=== PATIENT | male | born 1945 | race Caucasian/White ===

== ENCOUNTER → 2016-12-13 | Outpatient (CLI) | payer BC, OTHER ==
[~2016-12-13] MED LIST: AMLO10TA82 PO; ASP325T PO; ATOR80TA PO; CATHETER FLUSH 10 ML SYR IV PRN; ENAL10TA PO; FOLI1TAB24 PO; METO-272 PO; MULT-974 PO; NTR.4SL SL; OMG1KC PO; REGADENOSON 0.4 MG/5 ML SYR (LEXISCAN) IV ONE
[2016-12-13 12:57] VITALS: BP 150/70
--- NOTE | 2016-12-13 17:12 | STRESS TEST ---
PROCEDURE PHYSICIAN: NESTOR NEFF DATE OF PROCEDURE: 12/13/2016 LEXISCAN MYOVIEW STRESS TEST REPORT: BASELINE HEART RATE: 49 BASELINE BLOOD PRESSURE: 150/70 BASELINE EKG: Sinus rhythm with no ischemic changes. IN SUMMARY: The patient received 10.93 mCi of technetium 99 Myoview and the resting images were obtained. Then the patient received 0.4 mg of Lexiscan followed by 30.5 mCi of technetium 99 Myoview. Throughout the test, there were no EKG changes. The resting and stress images were reviewed and compared in the short axis, horizontal long axis, and vertical long axis views. Review of the images showed diaphragmatic attenuation with typical male pattern. Mild decreased uptake at the inferoapical segment, with subtle reversibility. SSS is 4, SDS 4, TID value 1.02. On the gated images, the left ventricle appeared to be normal size with normal contractility. Calculated ejection fraction 59%. IN CONCLUSION: 1. .The patient tolerated Lexiscan well. 2. Diaphragmatic attenuation with typical male pattern. Mild decreased uptake at the inferoapical segment, with subtle reversibility. 3. Normal left ventricular size with normal contractility. Calculated ejection fraction 59%. Job ID: [id number] Dictated Date: 12/13/2016 16:51:18 Client Services Specialist Date: 12/13/2016 17:08:18 / roberto
== END ==
LOC: CARD 08:34
PROVIDERS: ATTEND Internal Medicine Cardiovascular Disease
DX: I25.10 Atherosclerotic heart disease of native coronary artery without angina pectoris (principal); I11.0 Hypertensive heart disease with heart failure; I50.9 Heart failure, unspecified; I65.23 Occlusion and stenosis of bilateral carotid arteries; R07.89 Other chest pain; E78.2 Mixed hyperlipidemia
CPT/HCPCS: 78452; 93017

== ENCOUNTER 2019-02-19 07:24 | Day surgery (SDC) | payer BC, MEDICARE ==
[~2019-02-19] VITALS: Ht 165.1 cm; Wt 81.6 kg
[2019-02-19] VITALS (10 sets, daily range): BP systolic 110–135; BP diastolic 58–71
[~2019-02-19 07:24] MED LIST changes: -CATHETER FLUSH 10 ML SYR IV PRN; -REGADENOSON 0.4 MG/5 ML SYR (LEXISCAN) IV ONE
[2019-02-19] MEDS ORDERED: LIDOCAINE 1% INJ 20 ML 20 ML VIAL ONE (07:29)
[2019-02-19] MEDS ORDERED: NS IV 1000 ML 1,000 ML ONE (07:29)
[2019-02-19] MEDS ORDERED: HEParin (CATH LAB) 2,000 ML IV ONE (07:29)
[2019-02-19] MEDS ORDERED: NS IV 1000 ML 1,000 ML IV SCH ×2 (07:33→10:12)
[2019-02-19] MEDS ORDERED: OMEG10005 PO (08:04)
[2019-02-19] MEDS ORDERED: MULT-1065 PO (08:04)
[2019-02-19] MEDS ORDERED: ASPI325T32 PO (08:04)
[2019-02-19] MEDS ORDERED: METO-370 PO (08:04)
[2019-02-19] MEDS ORDERED: FOLI1TAB24 PO (08:04)
[2019-02-19] MEDS ORDERED: ATOR80TA76 PO (08:04)
[2019-02-19] MEDS ORDERED: AMLO10TA7 PO (08:04)
[2019-02-19 08:06] LABS: HEMOGLOBIN 14.3 G/DL (13.3-17.7); RED CELL DISTRIBUTION WIDTH 13.2 % (10.0-14.5); WHITE BLOOD COUNT 8.3 10^3/uL (4.3-11.0)
[2019-02-19] MEDS ORDERED: NITR0.4T39 SL (08:07)
--- NOTE | 2019-02-19 08:08 | Diagnostic Imaging Report ---
INDICATION: Cough COMPARISON: 10/10/2011 FINDINGS: There is air trapping and COPD chronic. The lungs show no focal consolidation. The heart and vascularity are normal. There is no failure, effusion or pneumothorax. IMPRESSION: Clear hyperexpanded lungs, otherwise negative. Dictated by: Dictated on workstation # [id number]
[2019-02-19] MEDS ORDERED: NAPR220C11 PO (08:10)
--- NOTE | 2019-02-19 08:12 | NUR ---
SPOKE WITH PT (HE HAD HIS BOTTLES WITH HIM) TO COMPLETE THE MED REC. HE WAS ABLE TO TELL ME HOW HE TAKES ALL HIS MEDICATIONS AND IT WAS THE SAME THE DIRECTIONS ON THE BOTTLE. OTC MEDS: NAPROXEN 220M TABS 1 8 H PRN OMEGA3 1,000M DAILY MULTIVITAMIN : 1 DAILY FOLIC ACID: 1 BID ASPIRIN 325M DAILY
[2019-02-19 08:19] LABS: INR 0.9 (0.8-1.4); PROTHROMBIN TIME PATIENT 12.4 SEC (12.2-14.7)
[2019-02-19 08:26] LABS: ALANINE AMINOTRANSFERASE 19 U/L (0-55); ALBUMIN 4.4 GM/DL (3.2-4.5); ALKALINE PHOSPHATASE 67 U/L (40-136); BILIRUBIN,TOTAL 0.6 MG/DL (0.1-1.0); BUN/CREATININE RATIO 12; CALCIUM 9.5 MG/DL (8.5-10.1); CARBON DIOXIDE 24 MMOL/L (21-32); CHLORIDE 96 MMOL/L (98-107); CHOLESTEROL 132 MG/DL (< 200); CREATININE SERUM 0.81 MG/DL (0.60-1.30); GFR ESTIMATED > 60; GLUCOSE 91 MG/DL (70-105); HDL CHOLESTEROL 56 MG/DL (40-60); POTASSIUM 4.5 MMOL/L (3.6-5.0); SODIUM 130 MMOL/L (135-145); TOTAL PROTEIN 7.3 GM/DL (6.4-8.2); TRIGLYCERIDES 55 MG/DL (<150); VLDL CHOLESTEROL 11 MG/DL (5-40)
[2019-02-19] MEDS ORDERED: MIDAZOLAM 5 MG/5 ML (VERSED) VIAL ONE (08:58)
[2019-02-19] MEDS ORDERED: fentaNYL INJECTION 100 MCG/2 ML AMP ONE (08:58)
--- NOTE | 2019-02-19 09:18 | Cardiac Procedure Note-CS/ASA ---
Pre-Procedure Note Pre-Op Procedure Note H&P Reviewed The H&P was reviewed, patient examined and no changes noted. Date H&P Reviewed: Feb 19, 2019 Time H&P Reviewed: 09:18 Conscious Sedation Pre-Proced Time 09:18 ASA Score 3 For ASA 3 and 4: Consider anesthesia and medical clearance. Also, for patients with a history of failed moderate sedation consider anesthesia. Airway Lungs Heart ASA score ASA 1: a normal healthy patient ASA 2: a patient with a mild systemic disease (mid diabetes, controlled hypertension, obesity x ASA 3: a patient with a severe systemic disease that limits activity (angina, COPD, prior Myocardial infarction) ASA 4: a patient with an incapacitating disease that is a constant threat to life (CHF, renal failure) ASA 5: a moribund patient not expected to survive 24 hrs. (ruptured aneurysm) ASA 6: a declared brain- patient whose organs are being harvested. For emergent operations, add the letter E after the classification Mallampati Classification Grade 3 Sedation Plan Analgesia, Amnesia, Plan communicated to team members, Discussed options with patient/fam, Discussed risks with patient/fam The patient is an appropriate candidate to undergo the planned procedure, sedation, and anesthesia. The patient immediately re-assessed prior to indication. NESTOR NEFF MD Feb 19, 2019 09:18
--- NOTE | 2019-02-19 10:14 | Discharge Inst-Post CATH ---
Discharge Inst-CATH/EP Problems Reviewed?: Yes Post Cardiac Cath/EP D/C Inst Follow Up/Plan Appointment with Dr. NEFF's office in 2-4 weeks <b>CARDIAC CATH/EP PROCEDURE DISCHARGE INSTRUCTIONS</b> ACTIVITY * Go Home directly and rest. * Limit activity of the leg (or wrist if it was used) for 7 days including aerob ics, swimming, jogging, bicycling, etc. * Restrict stair-climbing for 7 days if possible, if not, climb up with your non-cath leg, then bring together on the same step. * Avoid lifting, pushing, pulling or excessive movement of the affected extremity for 7 days. * Customary sexual activity may be resumed after 2 days-use caution not to use a position that strains or causes pain to the affected extremity. * No driving for 24 hours. * NO SMOKING. * Avoid straining for bowel movements for 7 days. * Gentle walking on level ground is allowed. * Returning to work will depend on the type of procedure and the results. Your doctor will discuss this with you. CALL YOUR DOCTOR FOR ANY OF THE FOLLOWING: *If bleeding from the puncture site occurs- Apply gentle pressure to site with clean cloth and call your doctor or EMS. * If a knot or lump forms under the skin, increases in size, or causes pain. * If bruising appears to be worsening or moving further down your leg instead of disappearing. * Temperature above 101 F. CARE OF YOUR GROIN INCISION; * Bruising or purple discoloration of the skin near the puncture site is common. * You may shower only, no bathtub bathing for 5 days. Be careful to avoid slipping as your leg may feel stiff. * If a closure device was used on your femoral artery, please see the attached guide regarding care of the device and your leg. * Leave dressing on FOR 24 hours. CARE OF YOUR WRIST INCISION; * Bruising or purple discoloration of the skin near the puncture site is common. * You may shower. * DO NOT submerge wrist. * Leave dressing on FOR 24 hours. NESTOR NEFF MD Feb 19, 2019 10:14
[2019-02-19] MEDS ORDERED: PATIENT MAY USE OWN MEDS, ALL PO SCH (10:15)
--- NOTE | 2019-02-19 10:22 | Peripheral Report ---
Peripheral Report Physician (s)/[employer]isher (s) Physician NESTOR NEFF MD Pre-Procedure Diagnosis Pre-Procedure Diagnosis: peripheral arterial disease Post-Procedure Note Procedure Start Date: Feb 19, 2019 Name of Procedure: abdominal aortogram with bilateral runoff Additional imaging Second order Findings/Procedure Note PROCEDURE NOTE: 73 years old gentleman with history of coronary artery disease, extensive peripheral arterial disease, kissing iliac stents. Has been having left leg pain, had abnormal ROSALIND bilaterally. Scheduled for peripheral angiogram After explaining the procedure to the patient, all pros and cons were explained, all questions were answered. The patient signed the consent and then he was placed on the cardiac catheterization laboratory. The patient was placed on the cardiac catheterization laboratory. Groin was prepped SL fashion local anesthesia was used. Sheath placed in the right femoral artery, pigtail catheter advanced to the abdominal aorta and angiogram to evaluate the bifurcation was done in 2 stages then I tried to cross over with the pigtail without success I exchanged it to 5 [place] UF catheter, advanced along stork wire to the left SFA then exchanged to catheter him to straight catheter that was placed at the common femoral artery and did runoff to the left leg then pressure was measured and I pulled back to the common iliac artery and there was slight step up in the pressure performed angiogram then again pulled back to the closest point to the bifurcation and performed angiogram again then exchanged the straight catheter into a pigtail catheter placed in the abdominal aorta and abdominal aortogram with bilateral runoff was done then I did runoff to the right leg using the pigtail then the sheath. At the end of the procedure sheath was removed mixed the plate FINDINGS: Abdominal aorta evaluation showed atherosclerotic disease in the abdominal aorta infrarenally, both renal arteries are normal, SMA and PANCHO are normal. The bifurcation is normal. Right lower extremity, patient has kissing iliac stent that were patent with mild to moderate disease within the stent, moderate stenosis in the mid and distal SFA, beyond the trifurcation arteries were small with good flow Left lower extremity, the iliac stents are patent with mild irregularity, nonobstructive disease, heavily calcified SFA with [id number]-[id number] disease nonobstructive disease down to the trifurcation below the trifurcation there is small artery disease. CONCLUSIONS: 1. Kissing iliac stents are patent with ziri-qq-lttaebta disease slightly more pronounced on the right side, nonobstructive disease with a pressure gradient of around 20 mmHg 2. Heavily calcified left SFA with moderate disease nonobstructive disease down to the trifurcation 3. Heavily calcified right SFA with moderate disease at the midportion, good flow down to the trifurcation 4. Diffuse atherosclerotic plaques in the abdominal aorta, no dissection was noted, no aneurysm DISCUSSION AND RECOMMENDATIONS: Continue to maximize medical therapy. No intervention is warranted at this time, close monitoring is recommended Anesthesia Type: Conscious Sedation Estimated blood loss (mL): 25 ml Contrast Amount: 75 ml Total Radiation Dose: 423 mGy Post-Procedure Diagnosis Post-operative diagnosis: Claudication Peripheral arterial disease Coronary artery disease Hypertension Hyperlipidemia NESTOR NEFF MD Feb 19, 2019 10:22
== END 2019-02-19 14:40 | disposition home or self-care (01) ==
LOC: CATH 07:24 → SDC 10:37 → CATH 14:40
PROVIDERS: ATTEND Internal Medicine Cardiovascular Disease
DX: I73.9 Peripheral vascular disease, unspecified (principal); I25.10 Atherosclerotic heart disease of native coronary artery without angina pectoris; I11.0 Hypertensive heart disease with heart failure; I50.9 Heart failure, unspecified; I65.29 Occlusion and stenosis of unspecified carotid artery; E78.2 Mixed hyperlipidemia; Z88.8 Allergy status to other drugs, medicaments and biological substances; Z79.82 Long term (current) use of aspirin; Z87.891 Personal history of nicotine dependence; Z82.49 Family history of ischemic heart disease and other diseases of the circulatory system; Z82.3 Family history of stroke; Z80.9 Family history of malignant neoplasm, unspecified
CPT/HCPCS: 36246; 36248; 36415; 71045; 75630; 80053; 80061; 85027; 85610; 85730; 87081

== ENCOUNTER 2019-07-11 08:12 | Emergency (ER) | payer BC ==
[~2019-07-11] VITALS: Ht 165 cm; Wt 80.6 kg
[~2019-07-11 08:12] MED LIST changes: +AMLO10TA7 PO; +ASPI325T32 PO; +ATOR80TA76 PO; +METO50TA7 PO; +MULT-1065 PO; +NAPR220C11 PO; +NITR0.4T39 SL; +OMEG10005 PO
[2019-07-11 09:57] LABS: BASOPHILS % (AUTO) 0 % (0-10); EOSINOPHILS % (AUTO) 0 % (0-10); HEMATOCRIT 37 % (40-54); HEMOGLOBIN 13.3 G/DL (13.3-17.7); LYMPHOCYTES # (AUTO) 1.7 X 10^3 (1.0-4.0); LYMPHOCYTES % (AUTO) 16 % (12-44); MEAN CORPUSCULAR HEMOGLOBIN 32 PG (25-34); MEAN CORPUSCULAR HGB CONC 36 G/DL (32-36); MEAN CORPUSCULAR VOLUME 91 FL (80-99); MONOCYTES # (AUTO) 1.7 X 10^3 (0.0-1.0); MONOCYTES % (AUTO) 15 % (0-12); NEUTROPHILS # (AUTO) 7.7 X 10^3 (1.8-7.8); NEUTROPHILS % (AUTO) 69 % (42-75); PLATELET COUNT 201 10^3/uL (130-400); WHITE BLOOD COUNT 11.2 10^3/uL (4.3-11.0)
[2019-07-11] MEDS ORDERED: LACTATED RINGERS 1,000 ML IV STA (10:00)
[2019-07-11 10:09] LABS: ALANINE AMINOTRANSFERASE 22 U/L (0-55); ALBUMIN 3.9 GM/DL (3.2-4.5); ALKALINE PHOSPHATASE 62 U/L (40-136); BILIRUBIN,TOTAL 0.9 MG/DL (0.1-1.0); BUN/CREATININE RATIO 12; CALCIUM 9.1 MG/DL (8.5-10.1); CARBON DIOXIDE 25 MMOL/L (21-32); CHLORIDE 91 MMOL/L (98-107); CREATININE SERUM 0.78 MG/DL (0.60-1.30); GFR ESTIMATED > 60; GLUCOSE 90 MG/DL (70-105); LIPASE 25 U/L (8-78); POTASSIUM 4.1 MMOL/L (3.6-5.0); SODIUM 126 MMOL/L (135-145); TOTAL PROTEIN 6.5 GM/DL (6.4-8.2)
[2019-07-11 10:16] LABS: INR 1.1 (0.8-1.4); PROTHROMBIN TIME PATIENT 14.9 SEC (12.2-14.7)
--- NOTE | 2019-07-11 10:18 | ED Abdominal Pain ---
General Chief Complaint: Abdominal/GI Problems Stated Complaint: L SIDE PAIN Nursing Triage Note: COMPLAINS OF LEFT ABD PAIN STARTING YESTERDAY THAT COMES AND GOES. PT STATES HE FELL ON SUN BUT DOES NOT KNOW WHAT SIDE HE HIT. Sepsis Screen: No Definite Risk Source of Information: Patient Exam Limitations: No Limitations History of Present Illness Date Seen by Provider: Jul 11, 2019 Time Seen by Provider: 09:51 Initial Comments Here with complaint of left lower quadrant abdominal pain that started yesterday and got quite significant last night. Stephens better when he laid down and was doing okay until this morning when it started to get a little bit worse. He is doing a little better now. Denies problems with bowel movements or urination. Denies blood in his urine or stool. He has not eaten today but did have a few sips of diet Mountain Dew. He has not taken anything for the pain. He did fall a few days ago but states he did not hit that side at all. Denies any injuries from the fall otherwise. Does state it hurts when he moves or walks on the left side of the abdomen. Timing/Duration: 12-24 Hours, Changing Over Time Severity/Quality: Moderate, Aching Location: LLQ Radiation: No Radiation Activities at Onset: None Modifying Factors: Improves With Lying down; Worsens With Movement; Improves Wi th Resting Associated Symptoms: No Back Pain, No Chest Pain, No Fever/Chills, No Nausea/Vomiting, No Shortness of Air, No Swelling/Mass in Abdomen, No Weakness Allergies and Home Medications Allergies Coded Allergies: Clopidogrel (Verified Allergy, Unknown, 01/02/07) Home Medications Amlodipine Besylate 10 Mg Tablet, 10 MG PO HS, (Reported) Aspirin 325 Mg Tablet.dr, 325 MG PO DAILY, (Reported) Atorvastatin Calcium 80 Mg Tablet, 80 MG PO DAILY, (Reported) Folic Acid 1 Mg Tablet, 1 MG PO BID, (Reported) Metoprolol Succinate 50 Mg Tab.er.24h, 50 MG PO DAILY, (Reported) Multivit-Min/FA/Lycopen/Lutein 1 Each Tablet, 1 EACH PO DAILY, (Reported) Naproxen Sodium 220 Mg Capsule, 440 MG PO Q8H PRN for PAIN-MILD, (Reported) Nitroglycerin 0.4 Mg Tab.subl, 0.4 MG SL UD PRN for CHEST PAIN, (Reported) [place]-3 Fatty Acids 1,000 Mg Capsule, 1,000 MG PO HS, (Reported) Patient Home Medication List Home Medication List Reviewed: Yes Review of Systems Review of Systems Constitutional: see HPI; No chills, No fever EENTM: No Symptoms Reported Respiratory: Denies Cough, Denies Shortness of Air Cardiovascular: No Symptoms Reported Gastrointestinal: Abdominal Pain; Denies Constipated, Denies Diarrhea, Denies Nausea, Denies Rectal Bleeding, Denies Vomiting Genitourinary: Denies Burning, Denies Discharge, Denies Hematuria Musculoskeletal: no symptoms reported Skin: no symptoms reported; No change in color, No lesions Psychiatric/Neurological: No Symptoms Reported All Other Systems Reviewed Negative Unless Noted: Yes Past Ufnkuty-Yrjoky-Coqcje Hx Past Med/Social Hx: Reviewed Nursing Past Med/Soc Hx Patient Social History Alcohol Use: Occasionally Uses Alcohol Beverage of Choice: Beer Recreational Drug Use: No Smoking Status: Current Everyday Smoker Type Used: Cigarettes Recent Foreign Travel: No Contact w/Someone Who Travel: No Recent Infectious Disease Expo: No Recent Hopitalizations: No Past Medical History Surgeries: Yes Coronary Stent Respiratory: No Currently Using CPAP: No Cardiac: Yes Coronary Artery Disease, Heart Attack, Hypertension Neurological: No Reproductive Disorders: No Genitourinary: No Gastrointestinal: No Musculoskeletal: Yes Endocrine: No HEENT: No Cancer: No Psychosocial: No Blood Disorders: No Adverse Reaction/Blood Tranf: No Family Medical History Reviewed Nursing Family Hx No Pertinent Family Hx Physical Exam Vital Signs Vital Signs - First Documented 07/11/19 09:00 Temp 35.4 Pulse 60 Resp 16 B/P (MAP) 133/104 (114) Pulse Ox 98 O2 Delivery Room Air Capillary Refill : Less Than 3 Seconds Height/Weight/BMI Height: 5'5.00" Weight: 180lbs. 0.0oz. 81.588822py; 29.00 BMI Method: General Appearance: WD/WN, no apparent distress HEENT: PERRL/EOMI, pharynx normal Neck: full range of motion, supple Respiratory: lungs clear, normal breath sounds Cardiovascular: regular rate, rhythm, no murmur Peripheral Pulses: 2+ Dorsalis Pedis (R), 2+ Left Dors-Pedis (L), 2+ Radial Pulses (R), 2+ Radial Pulses (L) Gastrointestinal: normal bowel sounds, soft, no organomegaly, no pulsatile mass; No distended; guarding; No rebound; tenderness (left lower quadrant) Extremities: non-tender, normal inspection, no pedal edema, no calf tenderness Back: normal inspection, no CVA tenderness, no vertebral tenderness Neurologic/Psychiatric: alert, oriented x 3 Skin: normal color, warm/dry Progress/Results/Core Measures Results/Orders Lab Results Laboratory Tests Test 07/11/19 09:26 07/11/19 11:27 Range/Units White Blood Count 11.2 H 4.3-11.0 10^3/uL Red Blood Count 4.10 L 4.35-5.85 10^6/uL Hemoglobin 13.3 13.3-17.7 G/DL Hematocrit 37 L 40-54 % Mean Corpuscular Volume 91 80-99 FL Mean Corpuscular Hemoglobin 32 25-34 PG Mean Corpuscular Hemoglobin Concent 36 32-36 G/DL Red Cell Distribution Width 14.0 10.0-14.5 % Platelet Count 201 130-400 10^3/uL Mean Platelet Volume 9.0 7.4-10.4 FL Neutrophils (%) (Auto) 69 42-75 % Lymphocytes (%) (Auto) 16 12-44 % Monocytes (%) (Auto) 15 H 0-12 % Eosinophils (%) (Auto) 0 0-10 % Basophils (%) (Auto) 0 0-10 % Neutrophils # (Auto) 7.7 1.8-7.8 X 10^3 Lymphocytes # (Auto) 1.7 1.0-4.0 X 10^3 Monocytes # (Auto) 1.7 H 0.0-1.0 X 10^3 Eosinophils # (Auto) 0.0 0.0-0.3 10^3/uL Basophils # (Auto) 0.0 0.0-0.1 10^3/uL Prothrombin Time 14.9 H 12.2-14.7 SEC INR Comment 1.1 0.8-1.4 Activated Partial Thromboplast Time 33 24-35 SEC Sodium Level 126 L 135-145 MMOL/L Potassium Level 4.1 3.6-5.0 MMOL/L Chloride Level 91 L 98-107 MMOL/L Carbon Dioxide Level 25 21-32 MMOL/L Anion Gap 10 5-14 MMOL/L Blood Urea Nitrogen 9 7-18 MG/DL Creatinine 0.78 0.60-1.30 MG/DL Estimat Glomerular Filtration Rate > 60 BUN/Creatinine Ratio 12 Glucose Level 90 70-105 MG/DL Calcium Level 9.1 8.5-10.1 MG/DL Corrected Calcium 9.2 8.5-10.1 MG/DL Total Bilirubin 0.9 0.1-1.0 MG/DL Aspartate Amino Transf (AST/SGOT) 29 5-34 U/L Alanine Aminotransferase (ALT/SGPT) 22 0-55 U/L Alkaline Phosphatase 62 40-136 U/L Total Protein 6.5 6.4-8.2 GM/DL Albumin 3.9 3.2-4.5 GM/DL Lipase 25 8-78 U/L Urine Color YELLOW Urine Clarity CLEAR Urine pH 7.5 5-9 Urine Specific [place] 1.015 L 1.016-1.022 Urine Protein NEGATIVE NEGATIVE Urine Glucose (UA) NEGATIVE NEGATIVE Urine Ketones NEGATIVE NEGATIVE Urine Nitrite NEGATIVE NEGATIVE Urine Bilirubin NEGATIVE NEGATIVE Urine Urobilinogen 0.2 < = 1.0 MG/DL Urine Leukocyte Esterase NEGATIVE NEGATIVE Urine RBC (Auto) NEGATIVE NEGATIVE Urine RBC NONE /HPF Urine WBC NONE /HPF Urine Crystals NONE /LPF Urine Bacteria NEGATIVE /HPF Urine Casts NONE /LPF Urine Mucus NEGATIVE /LPF Urine Culture Indicated NO My Orders Orders - BRADEN GEORGES MD Ed Iv/Invasive Line Start (07/11/19 09:50) Cbc With Automated Diff (07/11/19 09:50) Comprehensive Metabolic Panel (07/11/19 09:50) Lipase (07/11/19 09:50) Protime With Inr (07/11/19 09:50) Partial Thromboplastin Time (07/11/19 09:50) Ua Culture If Indicated (07/11/19 09:50) Lactated Ringers (Lr 1000 Ml Iv Solution (07/11/19 10:00) Ct Abdomen/Pelvis W (07/11/19 11:56) Iohexol Injection (Omnipaque 350 Mg/Ml 1 (07/11/19 12:00) Received Contrast (Hold Metformin- Contr (07/11/19 12:00) Sodium Chloride Flush (Catheter Flush Sy (07/11/19 12:00) Ns (Ivpb) (Sodium Chloride 0.9% Ivpb Bag (07/11/19 12:00) Medications Given in ED Current Medications Medications Dose Ordered Sig/Zeenat Route Start Time Stop Time Status Last Admin Dose Admin Iohexol 100 ml ONCE ONCE IV 07/11/19 12:00 07/11/19 12:01 DC 07/11/19 12:18 100 ML Sodium Chloride 10 ml NEEDED PRN IV 07/11/19 12:00 07/11/19 12:18 10 ML Sodium Chloride 100 ml ONCE ONCE IV 07/11/19 12:00 07/11/19 12:01 DC 07/11/19 12:18 80 ML Vital Signs/I&O 07/11/19 09:00 Temp 35.4 Pulse 60 Resp 16 B/P (MAP) 133/104 (114) Pulse Ox 98 O2 Delivery Room Air Blood Pressure Mean: 114 Progress Progress Note : Progress Note Seen and evaluated. IV, labs and UA ordered. LR 1 L bolus. Declines pain or nausea medicine at this point. Anticipate CT abdomen and pelvis. Pending labs and UA to determine contrast needs. 1320: CT complete. I did discuss with him the need for upper and lower endoscopy especially given findings of the stomach. He is having no pains in the epigastric region. No intra-abdominal findings related to the left lower quadrant this may be musculoskeletal after the fall. Pain is much better now without having to give any pain medicine and only therapy was rest. 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 I have asked him to rest for a few days to see if that helps. Also given information on local surgeons for upper and lower endoscopy as well as local medical physicians. Discharged home with return precautions. Patient and family verbalize understanding instructions and agreement with plan. Diagnostic Imaging Diagonstic Imaging: CT Plain Films/CT/US/NM/MRI: abdomen, pelvis Comments [facility] [place], [place] NAME: ANMOL HAYNES [facility] REC#: [id number] PT STATUS: REG ER : 1945 PHYSICIAN: BRADEN GEORGES MD ADMIT DATE: 07/11/19/ER Draft Date of Exam:07/11/19 CT ABDOMEN/PELVIS W PROCEDURE: CT abdomen and pelvis with contrast. TECHNIQUE: Multiple contiguous axial images were obtained through the abdomen and pelvis after administration of intravenous contrast. Auto Exposure Controls were utilized during the CT exam to meet ALARA standards for radiation dose reduction. DATE: July 11, 2019. COMPARISON: None. INDICATION: 74-year-old male, left lower quadrant abdominal pain. FINDINGS: The visualized portions of the lung bases are clear. The heart is not enlarged. There is no pericardial effusion. The liver is normal in size and contour. There is no identified liver lesion. The main, right, and left portal veins are patent. The gallbladder is unremarkable. There is no intrahepatic or extrahepatic bile duct dilation. The main pancreatic duct is not abnormally dilated. The pancreatic parenchyma is unremarkable in appearance. The spleen is not enlarged. The adrenal glands are unremarkable. Unremarkable appearance of the renal parenchyma. The urinary collecting systems are not distended. There is no identified renal or ureteral stone. 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 There appears to be a single right ureteral insertion. There is also a duplicated left urinary collecting system with single ureteral insertion. The urinary bladder is unremarkable in appearance. The intestinal tract is not distended. The appendix is normal. There appears to be fairly diffuse wall thickening of the stomach. There is no free intraperitoneal air. There is no drainable fluid collection. There is no free pelvic fluid. There are atherosclerotic calcifications. There are biiliac stent grafts. There is high-grade stenosis and potential occlusion of the proximal segments of the right and left internal iliac arteries. There is some reconstitution of flow distally. There is no identified abnormally enlarged lymph node in the abdomen or pelvis which meets CT size criteria for adenopathy. There are multilevel degenerative changes of the spine. There is grade 1 anterolisthesis of L4 and L5 relating to facet degenerative changes. There is no identified acute bony abnormality. IMPRESSION: CT ABDOMEN AND PELVIS. 1. Fairly diffuse wall thickening of the stomach which potentially could relate to gastritis. Malignancy cannot be excluded. Recommend correlation. Upper endoscopy could be considered for further assessment as needed. 2. 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 3. Atherosclerotic disease with high-grade stenosis and/or occlusion of the proximal segments of the right and left internal iliac arteries with reconstitution of flow distally. 4. No identified other potential acute abnormality in the abdomen or pelvis. Dictated on workstation # [id number] Dict: 07/11/19 1227 Trans: 07/11/19 1242 [facility] [id number] Interpreted by: ILIANA PRESTON MD Electronically signed by: Departure Impression Primary Impression: Left lower quadrant abdominal pain Disposition: 01 HOME, SELF-CARE Condition: Stable Departure-Patient Inst. Referrals: NO,LOCAL PHYSICIAN (PCP) Primary Care Physician TRINA RUIZ (Family) Primary Care Physician LEO VELÁZQUEZ BRETT D DO Patient Instructions: Acute Abdomen (Belly Pain), Adult (DC) Add. Discharge Instructions: All discharge instructions reviewed with patient and/or family. Voiced understanding. You need to rest for the next few days. You may take Tylenol/acetaminophen 1000 mg every 6-8 hours as needed for pain. You may take ibuprofen 400 mg every 6-8 hours as needed for pain. It is very important that you follow-up with a surgeon, those listed or of your choosing, for further evaluation including upper endoscopy (upper scope) and colonoscopy (Lower scope). You did have thickening of your stomach and that needs to be further evaluated. Return for worse pain, fever, vomiting, weakness, breathing problems or other concerns as needed. Drink plenty of fluids and eat a light diet. Work/School Note: Local Medical Staff Listing BRADEN GEORGES MD Jul 11, 2019 10:18
[2019-07-11 11:32] LABS: BILIRUBIN,URINE NEGATIVE (NEGATIVE); CLARITY,URINE CLEAR; COLOR,URINE YELLOW; GLUCOSE, URINE (UA) NEGATIVE (NEGATIVE); KETONES,URINE NEGATIVE (NEGATIVE); LEUKOCYTE ESTERASE ,URINE NEGATIVE (NEGATIVE); NITRITE,URINE NEGATIVE (NEGATIVE); PH,URINE 7.5 (5-9); PROTEIN,URINE NEGATIVE (NEGATIVE)
[2019-07-11 11:39] LABS: BACTERIA,URINE NEGATIVE /HPF
[2019-07-11] MEDS ORDERED: NS 100 ML (IVPB) BAG IV ONE (12:00)
[2019-07-11] MEDS ORDERED: HOLD METFORMIN - RECEIVED CONTRAST 20 ML VIAL IV SCH (12:00)
[2019-07-11] MEDS ORDERED: CATHETER FLUSH 10 ML SYR IV PRN (12:00)
[2019-07-11] MEDS ORDERED: IOHEXOL 350 MG/ML 100 ML (OMNIPAQUE 350) VIAL IV ONE (12:00)
--- NOTE | 2019-07-11 12:42 | Diagnostic Imaging Report ---
PROCEDURE: CT abdomen and pelvis with contrast. TECHNIQUE: Multiple contiguous axial images were obtained through the abdomen and pelvis after administration of intravenous contrast. Auto Exposure Controls were utilized during the CT exam to meet ALARA standards for radiation dose reduction. DATE: July 11, 2019. COMPARISON: None. INDICATION: 74-year-old male, left lower quadrant abdominal pain. FINDINGS: The visualized portions of the lung bases are clear. The heart is not enlarged. There is no pericardial effusion. The liver is normal in size and contour. There is no identified liver lesion. The main, right, and left portal veins are patent. The gallbladder is unremarkable. There is no intrahepatic or extrahepatic bile duct dilation. The main pancreatic duct is not abnormally dilated. The pancreatic parenchyma is unremarkable in appearance. The spleen is not enlarged. The adrenal glands are unremarkable. Unremarkable appearance of the renal parenchyma. The urinary collecting systems are not distended. There is no identified renal or ureteral stone. 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 There appears to be a single right ureteral insertion. There is also a duplicated left urinary collecting system with single ureteral insertion. The urinary bladder is unremarkable in appearance. The intestinal tract is not distended. The appendix is normal. There appears to be fairly diffuse wall thickening of the stomach. There is no free intraperitoneal air. There is no drainable fluid collection. There is no free pelvic fluid. There are atherosclerotic calcifications. There are biiliac stent grafts. There is high-grade stenosis and potential occlusion of the proximal segments of the right and left internal iliac arteries. There is some reconstitution of flow distally. There is no identified abnormally enlarged lymph node in the abdomen or pelvis which meets CT size criteria for adenopathy. There are multilevel degenerative changes of the spine. There is grade 1 anterolisthesis of L4 and L5 relating to facet degenerative changes. There is no identified acute bony abnormality. IMPRESSION: CT ABDOMEN AND PELVIS. 1. Fairly diffuse wall thickening of the stomach which potentially could relate to gastritis. Malignancy cannot be excluded. Recommend correlation. Upper endoscopy could be considered for further assessment as needed. 2. 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 3. Atherosclerotic disease with high-grade stenosis and/or occlusion of the proximal segments of the right and left internal iliac arteries with reconstitution of flow distally. 4. No identified other potential acute abnormality in the abdomen or pelvis. Dictated by: Dictated on workstation # [id number]
[2019-07-11 13:44] VITALS: BP 126/71
== END 2019-07-11 13:44 | disposition home or self-care (01) ==
LOC: EDUNIT# 08:12 → ER 08:14
DX: R10.32 Left lower quadrant pain (principal); I10 Essential (primary) hypertension; I25.2 Old myocardial infarction; I25.10 Atherosclerotic heart disease of native coronary artery without angina pectoris; F17.210 Nicotine dependence, cigarettes, uncomplicated; Z88.8 Allergy status to other drugs, medicaments and biological substances; Z79.82 Long term (current) use of aspirin; Z95.5 Presence of coronary angioplasty implant and graft
CPT/HCPCS: 36415; 74177; 80053; 81000; 83690; 85025; 85610; 85730; 96360

== ENCOUNTER → 2019-07-21 | Outpatient (CLI) | payer BC | LOC: CARD 12:36 | PROVIDERS: ATTEND Physician Assistant | DX: I25.10 Atherosclerotic heart disease of native coronary artery without angina pectoris (principal); I65.29 Occlusion and stenosis of unspecified carotid artery; I10 Essential (primary) hypertension; E78.2 Mixed hyperlipidemia; I73.9 Peripheral vascular disease, unspecified | CPT/HCPCS: 93306 ==

== ENCOUNTER → 2019-07-23 | Outpatient (CLI) | payer BC, MEDICARE ==
[~2019-07-23] VITALS: Ht 168 cm; Wt 80.0 kg
[~2019-07-23] MED LIST changes: +CATHETER FLUSH 10 ML SYR IV PRN; +REGADENOSON 0.4 MG/5 ML SYR (LEXISCAN) IV ONE
[2019-07-23 13:07] VITALS: BP 133/68
--- NOTE | 2019-07-23 19:21 | STRESS TEST ---
DATE OF SERVICE: 07/23/2019 LEXISCAN MYOVIEW STRESS TEST REPORT REFERRING PHYSICIAN: PRICILLA Martini Baseline heart rate is 63. Baseline blood pressure 142/65. Baseline EKG is sinus rhythm with no ischemic changes. In summary, the patient was injected with 10.95 mCi of technetium-99 Myoview and the resting images were obtained. Then, the patient received 0.4 mg of Lexiscan followed by 30.3 mCi of technetium-99 Myoview. Throughout the test, there were no EKG changes. The resting and stress images were reviewed and compared in the short axis, horizontal long axis, and vertical long axis views. Review of the images showed good radiotracer uptake. There is no significant ischemia or infarction was seen on the SPECT images. SSS is 0. SDS is 0. TID value 0.98. On the gated images, the left ventricle appeared to be in normal size with normal contractility. Calculated ejection fraction 66%. CONCLUSION: 1. The patient tolerated Lexiscan well. 2. No ischemia or infarction on SPECT images. 3. Normal left ventricular size with normal contractility. Calculated ejection fraction 66%. Job ID: [id number] DocumentID: [id number] Dictated Date: 07/23/2019 15:17:19 Pan Dumper Date: 07/23/2019 19:20:23 Dictated By: NESTOR NEFF MD
== END ==
LOC: CARD 10:50
PROVIDERS: ATTEND Physician Assistant
DX: I25.10 Atherosclerotic heart disease of native coronary artery without angina pectoris (principal); I65.29 Occlusion and stenosis of unspecified carotid artery; I10 Essential (primary) hypertension; E78.2 Mixed hyperlipidemia; I73.9 Peripheral vascular disease, unspecified
CPT/HCPCS: 78452; 93017

== ENCOUNTER 2019-08-21 13:25 | Outpatient (CLI) | payer BC, MEDICARE ==
[~2019-08-21] VITALS: Ht 167.7 cm; Wt 79.5 kg
[~2019-08-21 13:25] MED LIST changes: -CATHETER FLUSH 10 ML SYR IV PRN; -REGADENOSON 0.4 MG/5 ML SYR (LEXISCAN) IV ONE
[2019-08-21] MEDS ORDERED: ENAL10TA PO (13:56)
[2019-08-21] MEDS ORDERED: HYDR25TA4 PO (13:56)
[2019-08-21] MEDS ORDERED: RIVA2.5T5 PO (13:56)
== END 2019-08-21 14:20 | disposition home or self-care (01) ==
LOC: PREOP 13:25
PROVIDERS: ATTEND Surgery
DX: Z01.818 Encounter for other preprocedural examination (principal)

== ENCOUNTER 2020-11-12 08:49 | Emergency (ER) | payer MEDICARE, OTHER ==
[~2020-11-12] VITALS: Ht 165.1 cm; Wt 78.5 kg
[~2020-11-12 08:49] MED LIST changes: +AMLO-251 PO; -AMLO10TA7 PO; +ENAL10TA16 PO; +FOLI1TAB33 PO; +HYDR25TA4 PO; +RIVA2.5T5 PO
--- NOTE | 2020-11-12 09:11 | ED Chest Pain ---
General Chief Complaint: Chest Pain Stated Complaint: CHEST PAIN Source: patient Exam Limitations: no limitations History of Present Illness Date Seen by Provider: Nov 12, 2020 Time Seen by Provider: 08:53 Initial Comments Patient is a 75-year-old male who presents to the emergency department today with a chief complaint of left-sided chest pain, axillary pain and pain down his left arm. Patient states he is awoken in the middle of the night last night and the night before at 2 and 3:30 in the morning with this pain. He denies any associated symptoms of diaphoresis, nausea, states that he was a little bit short of breath. Patient states also that he has a history of possibly having some nerve impingement in his neck that causes pain to radiate down his arm into his fourth and fifth fingers Patient states he continues to have pain running down the back of his arm into his fourth and fifth fingers now. He has no chest pain. He did take nitro yesterday and this morning. He states the nitro helped He is not having any chest pain at all right now. Patient states that he saw his internal affairs commander, Dr. Mendez last week. He had blood work done including cholesterol. He also had carotids ultrasounded. He has not had a stress test in a couple of years. He denies any recent illnesses such as fevers, chills, productive cough. No GI or symptoms. He did catch a chill this morning. His temp is 38.1 on presentation this morning no complaints of illness however. All other review of systems reviewed and negative except as stated above. 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 Associated Symptoms: denies symptoms Allergies and Home Medications Allergies Coded Allergies: clopidogrel (Verified Allergy, Unknown, 01/02/07) Home Medications Amlodipine Besylate 10 Mg Tablet, 10 MG PO HS, (Reported) Aspirin 325 Mg Tablet, 325 MG PO DAILY, (Reported) Atorvastatin Calcium 80 Mg Tablet, 80 MG PO DAILY, (Reported) Enalapril Maleate 10 Mg Tablet, 10 MG PO BID, (Reported) Folic Acid 1 Mg Tablet, 1 MG PO BID, (Reported) Hydrochlorothiazide 25 Mg Tablet, 25 MG PO DAILY, (Reported) Metoprolol Succinate 50 Mg Tab.er.24h, 50 MG PO DAILY, (Reported) Multivit-Min/FA/Lycopen/Lutein 1 Each Tablet, 1 EACH PO DAILY, (Reported) Naproxen Sodium 220 Mg Capsule, 440 MG PO Q8H PRN for PAIN-MILD, (Reported) Nitroglycerin 0.4 Mg Tab.subl, 0.4 MG SL UD PRN for CHEST PAIN, (Reported) [place]-3 Fatty Acids 1,000 Mg Capsule, 1,000 MG PO HS, (Reported) Patient Home Medication List Home Medication List Reviewed: Yes Review of Systems Review of Systems Constitutional: see HPI, chills, diaphoresis (This morning while getting dressed) EENTM: No Symptoms Reported Respiratory: Shortness of Air Cardiovascular: Chest Pain Gastrointestinal: No Symptoms Reported Genitourinary: No Symptoms Reported Musculoskeletal: no symptoms reported Skin: no symptoms reported All Other Systems Reviewed Negative Unless Noted: Yes Past Ziertxv-Bkdmoz-Orabug Hx Patient Social History Alcohol Beverage of Choice: Beer Type Used: Cigarettes Recent Hopitalizations: No Seasonal Allergies Seasonal Allergies: No Past Medical History Surgeries: Yes (stents in legs) Coronary Stent Respiratory: No Currently Using CPAP: No Cardiac: Yes Coronary Artery Disease, Heart Attack, Hypertension, Peripheral Vascular Neurological: No Reproductive Disorders: No Genitourinary: No Gastrointestinal: Yes Musculoskeletal: Yes Arthritis, Chronic Back Pain Endocrine: No HEENT: No Cancer: No Psychosocial: No Integumentary: No Blood Disorders: No Adverse Reaction/Blood Tranf: No Family Medical History No Pertinent Family Hx Physical Exam Vital Signs Vital Signs - First Documented 11/12/20 09:06 Temp 38.1 Pulse 73 Resp 18 B/P (MAP) 150/73 (98) O2 Delivery Room Air Capillary Refill : Height, Weight, BMI Height: 5'5.00" Weight: 180lbs. 0.0oz. 81.454175kp; 28.26 BMI Method: General Appearance: No Apparent Distress, WD/WN HEENT: PERRL/EOMI Neck: Normal Inspection Respiratory: Lungs Clear, Normal Breath Sounds, No Accessory Muscle Use, No Respiratory Distress Cardiovascular: Regular Rate, Rhythm, No Murmur Gastrointestinal: Non Tender, Soft, Other (Bruise at his waistband of his jeans located left flank, ecchymotic without any abrasions or open skin wounds) Extremity: Normal Capillary Refill, Normal Inspection, Non Tender Neurologic/Psychiatric: Alert, Oriented x3, No Motor/Sensory Deficits Progress/Results/Core Measures Results/Orders Lab Results Laboratory Tests Test 11/12/20 09:17 Range/Units White Blood Count 8.8 4.3-11.0 10^3/uL Red Blood Count 3.36 L 4.30-5.52 10^6/uL Hemoglobin 10.7 L 13.3-17.7 g/dL Hematocrit 30 L 40-54 % Mean Corpuscular Volume 89 80-99 fL Mean Corpuscular Hemoglobin 32 25-34 pg Mean Corpuscular Hemoglobin Concent 36 32-36 g/dL Red Cell Distribution Width 12.5 10.0-14.5 % Platelet Count 215 130-400 10^3/uL Mean Platelet Volume 9.2 9.0-12.2 fL Immature Granulocyte % (Auto) 1 % Neutrophils (%) (Auto) 79 H 42-75 % Lymphocytes (%) (Auto) 9 L 12-44 % Monocytes (%) (Auto) 11 0-12 % Eosinophils (%) (Auto) 0 0-10 % Basophils (%) (Auto) 0 0-10 % Neutrophils # (Auto) 6.9 1.8-7.8 10^3/uL Lymphocytes # (Auto) 0.8 L 1.0-4.0 10^3/uL Monocytes # (Auto) 1.0 0.0-1.0 10^3/uL Eosinophils # (Auto) 0.0 0.0-0.3 10^3/uL Basophils # (Auto) 0.0 0.0-0.1 10^3/uL Immature Granulocyte # (Auto) 0.1 0.0-0.1 10^3/uL Sodium Level 129 L 135-145 MMOL/L Potassium Level 4.2 3.6-5.0 MMOL/L Chloride Level 96 L 98-107 MMOL/L Carbon Dioxide Level 22 21-32 MMOL/L Anion Gap 11 5-14 MMOL/L Blood Urea Nitrogen 19 H 7-18 MG/DL Creatinine 1.48 H 0.60-1.30 MG/DL Estimat Glomerular Filtration Rate 47 BUN/Creatinine Ratio 13 Glucose Level 99 70-105 MG/DL Calcium Level 9.1 8.5-10.1 MG/DL Total Creatine Kinase 147 30-200 U/L Creatine Kinase MB 2.2 <6.6 NG/ML Troponin I < 0.028 <0.028 NG/ML My Orders Orders - FADI DAVILA MD Ed Iv/Invasive Line Start (11/12/20 09:06) Cbc With Automated Diff (11/12/20 09:06) Basic Metabolic Panel (11/12/20 09:06) Troponin I (11/12/20 09:06) Creatine Kinase Mb (11/12/20 09:06) Creatine Kinase (11/12/20 09:06) Chest 1 View, Ap/Pa Only (11/12/20 09:06) Ekg Tracing (11/12/20 09:06) Aspirin Chewable Tablet (Baby Aspirin Ch (11/12/20 09:15) Medications Given in ED Current Medications Medications Dose Ordered Sig/Zeenat Route Start Time Stop Time Status Last Admin Dose Admin Aspirin 324 mg ONCE ONCE PO 11/12/20 09:15 11/12/20 09:16 DC 11/12/20 09:24 324 MG Vital Signs/I&O 11/12/20 11/12/20 09:06 09:08 Temp 38.1 Pulse 73 Resp 18 B/P (MAP) 150/73 (98) O2 Delivery Room Air Room Air Progress Progress Note : Time: 10:26 Progress Note Patient seen and evaluated, chest pain this morning in the middle of the night. Completely relieved with nitroglycerin. Patient is comfortable without any complaints throughout his stay in the ED. Of note the patient is a little bit anemic with a hemoglobin of 10 and his creatinine is elevated above his baseline at 1.4. His BUN is also elevated I suspect this is some prerenal azotemia and the patient needs to drink more water. He will follow-up with Dr. Bustillos on Sunday the family is related to [address] Bustillos's nurses. She is already texted her to let her know. The patient did have 2 shots of steroids in his buttocks for low back pain approximately 2 to 3 days ago. I suspect the steroid may have induced a little bit of chest discomfort as well as a little bit of elevation in his temperature. The patient is strongly encouraged to drink water. They are advised to contact Dr. Bustillos's office on Sunday. They are given good return precautions which include if his chest pain recurs or worsens or changes that he needs to come back to the emergency department. He verbalizes understanding as does his daughter who is at the bedside. All questions were sought and answered. Patient is stable for discharge. Initial ECG Impression Date: Nov 12, 2020 Initial ECG Impression Time: 08:54 Initial ECG Rate: 83 Initial ECG Rhythm: Normal Sinus Initial ECG Intervals: Normal Initial ECG Intervals [place] interval 184 QRS 116 QTC 427 Diagnostic Imaging Plain Films/CT/US/NM/MRI: chest Comments [facility], [place] NAME: ANMOL HAYNES [facility] REC#: [id number] PT STATUS: REG ER : 1945 PHYSICIAN: FADI DAVILA MD ADMIT DATE: 11/12/20/ER Signed Date of Exam:11/12/20 CHEST 1 VIEW, AP/PA ONLY Indication: Chest pain Portable chest 9:33 AM Heart size and pulmonary vascularity are normal. Lungs are clear. There are no effusions or pneumothoraces. IMPRESSION: Negative chest Dictated by: Dictated on workstation # [id number] Dict: 11/12/20 0943 Trans: 11/12/20 0944 TCB [id number] Interpreted by: BRADEN BELLE MD Electronically signed by: BRADEN BELLE MD 11/12/20 0944 Departure Impression Primary Impression: Chest pain Qualified Codes: R07.9 - Chest pain, unspecified Additional Impression: Prerenal azotemia Disposition: 01 HOME, SELF-CARE Condition: Stable Departure-Patient Inst. Decision time for Depature: 10:27 Referrals: TRINA RUIZ (PCP) Primary Care Physician NESTOR MENDEZ MD Patient Instructions: Chest Pain (DC) Add. Discharge Instructions: Please drink plenty of water to stay well-hydrated and keep your kidneys working well. Continue your home daily medications as previously prescribed. If you have a recurrence of chest pain, chest pain that requires more than 1 nitroglycerin or any other emergent concerning symptoms please come back to the emergency room for reevaluation. Please follow-up with your primary practitioner for your kidney function within the next 2 weeks. Also please call Dr. Mendez on Sunday for a follow-up appointment. Copy Copies To 1: NESTOR MENDEZ MD, KATHRYN M MD Nov 12, 2020 09:11
[2020-11-12] MEDS ORDERED: ASPIRIN 81 MG CHEW (CHILDREN'S ASA) PO ONE (09:15)
--- NOTE | 2020-11-12 09:45 | Diagnostic Imaging Report ---
Indication: Chest pain Portable chest 9:33 AM Heart size and pulmonary vascularity are normal. Lungs are clear. There are no effusions or pneumothoraces. IMPRESSION: Negative chest Dictated by: Dictated on workstation # [id number]
[2020-11-12 09:50] LABS: BASOPHILS % (AUTO) 0 % (0-10); EOSINOPHILS % (AUTO) 0 % (0-10); HEMATOCRIT 30 % (40-54); HEMOGLOBIN 10.7 g/dL (13.3-17.7); LYMPHOCYTES # (AUTO) 0.8 10^3/uL (1.0-4.0); LYMPHOCYTES % (AUTO) 9 % (12-44); MEAN CORPUSCULAR HEMOGLOBIN 32 pg (25-34); MEAN CORPUSCULAR HGB CONC 36 g/dL (32-36); MEAN CORPUSCULAR VOLUME 89 fL (80-99); MEAN PLATELET VOLUME 9.2 fL (9.0-12.2); MONOCYTES % (AUTO) 11 % (0-12); NEUTROPHILS # (AUTO) 6.9 10^3/uL (1.8-7.8); NEUTROPHILS % (AUTO) 79 % (42-75); PLATELET COUNT 215 10^3/uL (130-400); WHITE BLOOD COUNT 8.8 10^3/uL (4.3-11.0)
[2020-11-12 09:53] LABS: CHLORIDE 96 MMOL/L (98-107); POTASSIUM 4.2 MMOL/L (3.6-5.0); SODIUM 129 MMOL/L (135-145)
[2020-11-12 09:54] LABS: CALCIUM 9.1 MG/DL (8.5-10.1); GLUCOSE 99 MG/DL (70-105)
[2020-11-12 09:56] LABS: CARBON DIOXIDE 22 MMOL/L (21-32)
[2020-11-12 09:58] LABS: CREATININE SERUM 1.48 MG/DL (0.60-1.30); GFR ESTIMATED 47
[2020-11-12 09:59] LABS: BUN/CREATININE RATIO 13
[2020-11-12 10:01] LABS: CREATINE KINASE 147 U/L (30-200)
[2020-11-12 10:06] LABS: CREATINE KINASE MB 2.2 NG/ML (<6.6)
[2020-11-12 10:58] VITALS: BP 128/61
== END 2020-11-12 11:02 | disposition home or self-care (01) ==
LOC: EDUNIT# 08:49 → ER 08:52
DX: R07.9 Chest pain, unspecified (principal); S30.1XXA Contusion of abdominal wall, initial encounter; R39.2 Extrarenal uremia; D64.9 Anemia, unspecified; I11.0 Hypertensive heart disease with heart failure; I50.9 Heart failure, unspecified; I25.10 Atherosclerotic heart disease of native coronary artery without angina pectoris; G89.29 Other chronic pain; M54.5 Low back pain; Z79.82 Long term (current) use of aspirin; Z79.1 Long term (current) use of non-steroidal anti-inflammatories (NSAID); Z79.899 Other long term (current) drug therapy; X58.XXXA Exposure to other specified factors, initial encounter
CPT/HCPCS: 36415; 71045; 80048; 82550; 82553; 84484; 85025

== ENCOUNTER 2021-06-26 09:45 | Observation (INO) | payer MEDICARE, OTHER ==
[~2021-06-26] VITALS: Ht 165 cm; Wt 80.0 kg
[2021-06-26] MEDS ORDERED: RX-ALBUTEROL INHALER 8.5 GM HFA (PROAIR) IH STA (09:59)
[2021-06-26] MEDS ORDERED: ASPIRIN 81 MG CHEW (CHILDREN'S ASA) PO ONE (10:00)
[2021-06-26 10:05] LABS: BASOPHILS # (AUTO) 0.1 10^3/uL (0.0-0.1); BASOPHILS % (AUTO) 1 % (0-10); EOSINOPHILS # (AUTO) 0.2 10^3/uL (0.0-0.3); EOSINOPHILS % (AUTO) 2 % (0-10); HEMATOCRIT 37 % (40-54); HEMOGLOBIN 12.2 g/dL (13.3-17.7); LYMPHOCYTES # (AUTO) 2.3 10^3/uL (1.0-4.0); LYMPHOCYTES % (AUTO) 30 % (12-44); MEAN CORPUSCULAR HEMOGLOBIN 30 pg (25-34); MEAN CORPUSCULAR HGB CONC 33 g/dL (32-36); MEAN CORPUSCULAR VOLUME 91 fL (80-99); MEAN PLATELET VOLUME 9.1 fL (9.0-12.2); MONOCYTES % (AUTO) 12 % (0-12); NEUTROPHILS # (AUTO) 4.2 10^3/uL (1.8-7.8); NEUTROPHILS % (AUTO) 54 % (42-75); PLATELET COUNT 216 10^3/uL (130-400); WHITE BLOOD COUNT 7.8 10^3/uL (4.3-11.0)
--- NOTE | 2021-06-26 10:06 | ED Chest Pain ---
General Chief Complaint: Chest Pain Stated Complaint: CP,ARM/JAW PAIN Source: patient Exam Limitations: no limitations History of Present Illness Date Seen by Provider: Jun 26, 2021 Time Seen by Provider: 09:50 Initial Comments Patient to the ER by private conveyance with his daughter and chief complaint of chest pain running down his left arm into his left jaw and tingling in his left hand. Started last night around 11:00. He took a single dose of nitroglycerin and it went away. He says this has been happening about every night after he lays down to go to sleep. He feels a little short of air has a history of lung disease and quit smoking 2 years ago. No fevers or chills. No cough or productive cough. No nausea vomiting diarrhea. No pain at the moment. When he told his daughter about it she insisted he come in to be checked out. He is known to Dr. Mendez has a history of 10 stents with his last trip to the ER in March resulting in another stent placed by cardiology in [place]. No CABG. He has hypertension hyperlipidemia. No diabetes. Cannot tolerate Plavix. He did take his aspirin this morning as well as the rest of his medications. He is not on blood thinners. Allergies and Home Medications Allergies Coded Allergies: clopidogrel (Verified Allergy, Unknown, 01/02/07) Patient Home Medication List Home Medication List Reviewed: Yes Aspirin (Aspirin EC) 81 Mg Tablet., 81 MG PO BID, (Reported) Entered as Reported by: MIKAYLA SMITH on 06/26/21 1445 Last Action: Reviewed Atorvastatin Calcium (Atorvastatin Calcium) 80 Mg Tablet, 80 MG PO DAILY, (Reported) Entered as Reported by: ARIANNA TOMAS on 02/19/19803 Last Action: Reviewed Enalapril Maleate (Enalapril Maleate) 10 Mg Tablet, 10 MG PO BID, (Reported) Entered as Reported by: YUMIKO RAY on 08/21/19 1356 Last Action: Reviewed Folic Acid (Folic Acid) 1 Mg Tablet, 1 MG PO BID, (Reported) Entered as Reported by: ARIANNA TOMAS on 02/19/19803 Last Action: Reviewed Hydrochlorothiazide (Hydrochlorothiazide) 25 Mg Tablet, 25 MG PO DAILY, (Reported) Entered as Reported by: YUMIKO RAY on 08/21/19 1356 Last Action: Reviewed Metoprolol Succinate (Metoprolol Succinate) 50 Mg Tab.er.24h, 50 MG PO DAILY, (Reported) Entered as Reported by: ARIANNA TOMAS on 02/19/19803 Last Action: Reviewed Multivit-Min/FA/Lycopen/Lutein (Centravites 50 Plus Tablet) 1 Each Tablet, 1 EACH PO DAILY, (Reported) Entered as Reported by: ARIANNA TOMAS on 02/19/19803 Last Action: Reviewed Nitroglycerin (Nitroglycerin) 0.4 Mg Tab.subl, 0.4 MG SL UD PRN for CHEST PAIN, (Reported) Entered as Reported by: ARIANNA TOMAS on 02/19/19806 Last Action: Reviewed [place]-3 Fatty Acids ([place]-3) 1,000 Mg Capsule, 1,000 MG PO HS, (Reported) Entered as Reported by: ARIANNA TOMAS on 02/19/19803 Last Action: Reviewed Omeprazole (Omeprazole) 20 Mg Capsule., 20 MG PO DAILY, (Reported) Entered as Reported by: MIKAYLA SMITH on 06/26/21 1446 Last Action: Reviewed Prasugrel HCl (Prasugrel HCl) 10 Mg Tablet, 10 MG PO DAILY, (Reported) Entered as Reported by: MIKAYLA SMITH on 06/26/21 1443 Last Action: Reviewed Discontinued Medications Amlodipine Besylate (Amlodipine Besylate) 10 Mg Tablet, 10 MG PO HS, (Reported) Discontinued Reason: No Longer Taking Entered as Reported by: ARIANNA TOMAS on 02/19/19803 Last Action: Discontinued Aspirin (Aspirin EC) 325 Mg Tablet.dr, 325 MG PO DAILY, (Reported) Discontinued Reason: No Longer Taking Entered as Reported by: ARIANNA TOMAS on 02/19/19803 Last Action: Discontinued Naproxen Sodium (Aleve) 220 Mg Capsule, 440 MG PO Q8H PRN for PAIN-MILD, (Reported) Discontinued Reason: No Longer Taking Entered as Reported by: ARIANNA TOMAS on 02/19/19809 Last Action: Discontinued Review of Systems Review of Systems Constitutional: No chills, No diaphoresis EENTM: No Blurred Vision, No Double Vision Respiratory: Denies Cough; Shortness of Air Cardiovascular: See HPI, Chest Pain; Denies Lightheadedness Gastrointestinal: Denies Constipated, Denies Diarrhea, Denies Nausea Genitourinary: Denies Discharge, Denies Drainage Musculoskeletal: No back pain, No joint pain Psychiatric/Neurological: Denies Anxiety, Denies Depressed All Other Systems Reviewed Negative Unless Noted: Yes Past Hikxkvm-Bcawlp-Ybrmeg Hx Patient Social History Tobacco Use?: No Use of E-Cig and/or Vaping dev: No Substance use?: No Seasonal Allergies Seasonal Allergies: No Past Medical History Surgeries: Yes (stents in legs) Coronary Stent Respiratory: No Currently Using CPAP: No Cardiac: Yes Coronary Artery Disease, Heart Attack, Hypertension, Peripheral Vascular Neurological: No Reproductive Disorders: No Genitourinary: No Gastrointestinal: Yes Musculoskeletal: Yes Arthritis, Chronic Back Pain Endocrine: No HEENT: No Cancer: No Psychosocial: No Integumentary: No Blood Disorders: No Adverse Reaction/Blood Tranf: No Family Medical History No Pertinent Family Hx Physical Exam Vital Signs Vital Signs - First Documented 06/26/21 09:48 Temp 36.9 Pulse 67 Resp 23 B/P (MAP) 174/84 (114) Pulse Ox 99 Capillary Refill : Height, Weight, BMI Height: 5'5.00" Weight: 180lbs. 0.0oz. 81.810484by; 28.00 BMI Method: General Appearance: No Apparent Distress, WD/WN HEENT: PERRL/EOMI, Pharynx Normal, Moist Mucous Membranes Neck: Full Range of Motion, Normal Inspection Respiratory: No Accessory Muscle Use, No Respiratory Distress, Wheezing (Slight expiratory bilateral) Cardiovascular: Regular Rate, Rhythm, No Edema, Normal Peripheral Pulses Gastrointestinal: Normal Bowel Sounds, No Pulsatile Mass, Non Tender, Soft Extremity: Normal Capillary Refill, Normal Inspection Neurologic/Psychiatric: Alert, Oriented x3, Normal Mood/Affect Skin: Normal Color, Warm/Dry Progress/Results/Core Measures Results/Orders Lab Results Laboratory Tests Test 06/26/21 09:57 06/26/21 10:20 Range/Units White Blood Count 7.8 4.3-11.0 10^3/uL Red Blood Count 4.05 L 4.30-5.52 10^6/uL Hemoglobin 12.2 L 13.3-17.7 g/dL Hematocrit 37 L 40-54 % Mean Corpuscular Volume 91 80-99 fL Mean Corpuscular Hemoglobin 30 25-34 pg Mean Corpuscular Hemoglobin Concent 33 32-36 g/dL Red Cell Distribution Width 14.0 10.0-14.5 % Platelet Count 216 130-400 10^3/uL Mean Platelet Volume 9.1 9.0-12.2 fL Immature Granulocyte % (Auto) 1 % Neutrophils (%) (Auto) 54 42-75 % Lymphocytes (%) (Auto) 30 12-44 % Monocytes (%) (Auto) 12 0-12 % Eosinophils (%) (Auto) 2 0-10 % Basophils (%) (Auto) 1 0-10 % Neutrophils # (Auto) 4.2 1.8-7.8 10^3/uL Lymphocytes # (Auto) 2.3 1.0-4.0 10^3/uL Monocytes # (Auto) 1.0 0.0-1.0 10^3/uL Eosinophils # (Auto) 0.2 0.0-0.3 10^3/uL Basophils # (Auto) 0.1 0.0-0.1 10^3/uL Immature Granulocyte # (Auto) 0.1 0.0-0.1 10^3/uL Prothrombin Time 12.4 12.2-14.7 SEC INR Comment 0.9 0.8-1.4 Activated Partial Thromboplast Time 29 24-35 SEC Sodium Level 136 135-145 MMOL/L Potassium Level 3.8 3.6-5.0 MMOL/L Chloride Level 101 98-107 MMOL/L Carbon Dioxide Level 24 21-32 MMOL/L Anion Gap 11 5-14 MMOL/L Blood Urea Nitrogen 18 7-18 MG/DL Creatinine 1.42 H 0.60-1.30 MG/DL Estimat Glomerular Filtration Rate 52 BUN/Creatinine Ratio 13 Glucose Level 83 70-105 MG/DL Calcium Level 9.3 8.5-10.1 MG/DL Corrected Calcium 9.3 8.5-10.1 MG/DL Magnesium Level 1.7 1.6-2.4 MG/DL Total Bilirubin 0.4 0.1-1.0 MG/DL Aspartate Amino Transf (AST/SGOT) 27 5-34 U/L Alanine Aminotransferase (ALT/SGPT) 13 0-55 U/L Alkaline Phosphatase 73 40-136 U/L Myoglobin 90.4 10.0-92.0 NG/ML Troponin I < 0.028 <0.028 NG/ML Total Protein 7.2 6.4-8.2 GM/DL Albumin 4.0 3.2-4.5 GM/DL Influenza Type A (RT-PCR) Not Detected Not Detecte Influenza Type B (RT-PCR) Not Detected Not Detecte SARS-CoV-2 RNA (RT-PCR) Not Detected Not Detecte My Orders Orders - IKER ROMEO Continuous Ekg Monitoring (06/26/21 09:47) Ekg Tracing (06/26/21 09:47) Cbc With Automated Diff (06/26/21 09:59) Magnesium (06/26/21 09:59) Chest 1 View, Ap/Pa Only (06/26/21 09:59) Comprehensive Metabolic Panel (06/26/21 09:59) Myoglobin Serum (06/26/21 09:59) Protime With Inr (06/26/21 09:59) Partial Thromboplastin Time (06/26/21 09:59) O2 (06/26/21 09:59) Lipid Panel (06/27/21 06:00) Ed Iv/Invasive Line Start (06/26/21 09:59) Aspirin Chewable Tablet (Baby Aspirin Ch (06/26/21 10:00) Covid 19 Inhouse Test (06/26/21 09:59) Influenza A And B By Pcr (06/26/21 09:59) Rx-Albuterol Inhaler (Rx-Ventolin Hfa In (06/26/21 09:59) Troponin I [place] (06/26/21 09:57) Ed Admission (Communication) (06/26/21 11:14) Medications Given in ED Current Medications Medications Dose Ordered Sig/Zeenat Route Start Time Stop Time Status Last Admin Dose Admin Aspirin 243 mg ONCE ONCE PO 06/26/21 10:00 06/26/21 10:02 DC 06/26/21 10:42 243 MG Vital Signs/I&O 06/26/21 09:48 Temp 36.9 Pulse 67 Resp 23 B/P (MAP) 174/84 (114) Pulse Ox 99 Progress Progress Note : Time: 10:04 Progress Note Patient's not having any pain at this time. Sounds very concerning for angina. It went away with a single dose of nitroglycerin. He is not having any right now. We will give him another 3 tablets of aspirin and get some work-up including a COVID and influenza swab. Albuterol inhaler 2 puffs. Initial ECG Impression Date: Jun 26, 2021 Initial ECG Impression Time: 09:46 Initial ECG Rate: 60 Initial ECG Rhythm: Normal Sinus Initial ECG Intervals: Normal Initial ECG Impression: Normal Comment Sinus rhythm without clinically relevant ST changes. Diagnostic Imaging Diagonstic Imaging: Xray Plain Films/CT/US/NM/MRI: chest Comments No acute cardiopulmonary process on 1 view chest x-ray [facility], [place] NAME: ANMOL HAYNES [facility] REC#: [id number] PT STATUS: ADM Yonathan : 1945 PHYSICIAN: IKER ROMEO MD ADMIT DATE: 06/26/21 Signed Date of Exam:06/26/21 CHEST 1 VIEW, AP/PA ONLY EXAMINATION: Chest 1 view HISTORY: Chest pain COMPARISON: 11/12/2020 FINDINGS: The lungs are clear without edema or pneumonia. No pleural effusion or pneumothorax. Heart size is normal. IMPRESSION: 1. Clear lungs. Dictated by: Dictated on workstation # [id number] Dict: 06/26/21 1128 Trans: 06/26/21 1352 [facility] [id number] Interpreted by: TRACY FARR MD Electronically signed by: TRACY FARR MD 06/26/21 1352 Reviewed: Reviewed by Me Departure Communication (Admissions) Time/Spoke to Admitting Phy: 11:[address] Carter and she agrees to observe the patient with consult to cardiology. She will put an queued orders. Time/Spoke to Consulting Phy: 11:00 Discussed the case with Dr. Kang, cardiology and he recommends observation, trend troponins, continue home meds and he would pass the patient off Dr. Mendez in the morning. He does not need to be n.p.o. at this time Impression Primary Impression: Unstable angina Disposition: 09 ADMITTED INPATIENT Condition: Stable Admissions Decision to Admit Reason: Admit from ER (General) Decision to Admit/Date: Jun 26, 2021 Time/Decision to Admit Time: 11:00 Departure-Patient Inst. Referrals: TRINA RUIZ (PCP/Family) Primary Care Physician IKER ROMEO Jun 26, 2021 10:06
[2021-06-26 10:13] LABS: CHLORIDE 101 MMOL/L (98-107); POTASSIUM 3.8 MMOL/L (3.6-5.0); SODIUM 136 MMOL/L (135-145)
[2021-06-26 10:14] LABS: CALCIUM 9.3 MG/DL (8.5-10.1)
[2021-06-26 10:15] LABS: GLUCOSE 83 MG/DL (70-105); TOTAL PROTEIN 7.2 GM/DL (6.4-8.2)
[2021-06-26 10:16] LABS: CARBON DIOXIDE 24 MMOL/L (21-32); INR 0.9 (0.8-1.4); PROTHROMBIN TIME PATIENT 12.4 SEC (12.2-14.7)
[2021-06-26 10:17] LABS: BILIRUBIN,TOTAL 0.4 MG/DL (0.1-1.0)
[2021-06-26 10:19] LABS: ALKALINE PHOSPHATASE 73 U/L (40-136); CREATININE SERUM 1.42 MG/DL (0.60-1.30); GFR ESTIMATED 52
[2021-06-26 10:20] LABS: BUN/CREATININE RATIO 13
[2021-06-26 10:22] LABS: ALANINE AMINOTRANSFERASE 13 U/L (0-55); MAGNESIUM 1.7 MG/DL (1.6-2.4)
--- NOTE | 2021-06-26 11:22 | History & Physical-Hospitalist ---
History of Present Illness HPI/Chief Complaint Chief complaint: Unstable angina History of present illness: This is a 76-year-old white male clinic patient of Dr. Mendez who has a past medical history of VT and stents who presented to the ER with chest pain suspicious for acute coronary syndrome. Initial troponin and EKG was normal. Decision was made to place in observation serial troponins and monitoring closely. Source: patient, family, RN/MD Exam Limitations: no limitations Date Seen 06/26/21 Time Seen by a Provider: 12:30 Attending Physician PCP Jong Banegas Referring Physician Date of Admission Home Medications & Allergies Home Medications Reviewed patient Home Medication Reconciliation performed by pharmacy medication reconciliations insulation technician and/or nursing. Patients Allergies have been reviewed. Allergies Allergies Coded Allergies clopidogrel (Verified Allergy, Unknown, 01/02/07) Past Oywkxct-Fogkir-Nauueq Hx Patient Social History Marrital Status: single Employed/Student: retired Tobacco Use?: No Smoking Status: Former Smoker Use of E-Cig and/or Vaping dev: No Substance use?: No Alcohol Use?: No Pt feels they are or have been: No Seasonal Allergies Seasonal Allergies: No Current Status Advance Directives: No Communicates: Verbally Primary Language: Polish Preferred Spoken Language: Polish Is interpretation needed?: No Implanted or Applied Medical D: Orthopedic hardware, Stents Past Medical History Surgeries: Coronary Stent Currently Using CPAP: No Coronary Artery Disease, Heart Attack, Hypertension, Peripheral Vascular Arthritis, Chronic Back Pain Blood Disorders: No Adverse Reaction/Blood Tranf: No Family Medical History No Pertinent Family Hx Review of Systems Constitutional: see HPI EENTM: no symptoms reported Respiratory: dyspnea on exertion Cardiovascular: chest pain Gastrointestinal: no symptoms reported Genitourinary: no symptoms reported Musculoskeletal: no symptoms reported Skin: no symptoms reported Psychiatric/Neurological: No Symptoms Reported All Other Systems Reviewed Negative Unless Noted: Yes Physical Exam Physical Exam Vital Signs Vital Signs - First Documented 06/26/21 06/26/21 09:48 11:55 Temp 36.9 Pulse 67 Resp 23 B/P (MAP) 174/84 (114) Pulse Ox 99 O2 Delivery Room Air Capillary Refill : Less Than 3 Seconds Height, Weight, BMI Height: 5'5.00" Weight: 180lbs. 0.0oz. 81.813426cm; 29.00 BMI Method: General Appearance: No Apparent Distress, Obese Eyes: Right Eye Normal Inspection, Right Eye PERRL HEENT: PERRL/EOMI, Normal ENT Inspection, Pharynx Normal, Moist Mucous Membranes Neck: Full Range of Motion, Normal Inspection, Non Tender Respiratory: Chest Non Tender, Lungs Clear, Normal Breath Sounds, No Accessory Muscle Use, No Respiratory Distress Cardiovascular: Regular Rate, Rhythm, No Edema, No Gallop, No JVD, No Murmur, Normal Peripheral Pulses Gastrointestinal: Normal Bowel Sounds, No Organomegaly, No Pulsatile Mass, Non Tender, Soft Back: Normal Inspection, No CVA Tenderness, No Vertebral Tenderness Extremity: Normal Capillary Refill, Normal Inspection, Normal Range of Motion, Non Tender, No Calf Tenderness, No Pedal Edema Neurologic/Psychiatric: Alert, Oriented x3, No Motor/Sensory Deficits, Normal Mood/Affect Skin: Normal Color, Warm/Dry Lymphatic: No Adenopathy Results Results/Procedures Labs Laboratory Tests 06/26/21 09:57 Patient resulted labs reviewed. Assessment/Plan Admission Diagnosis Assessment: Unstable angina CAD previous stents Hypertension Hyperlipidemia Plan: Serial troponins Cardiology consult Admission Status: Observation Diagnosis/Problems Diagnosis/Problems (1) Unstable angina Status: Acute (2) Chest pain Status: Acute Clinical Quality Measures AMI/AHF: ASA po Prior to arrival: Yes (81MG) STANLEY KOLB DO Jun 26, 2021 11:22
--- NOTE | 2021-06-26 11:32 | Diagnostic Imaging Report ---
EXAMINATION: Chest 1 view HISTORY: Chest pain COMPARISON: 11/12/2020 FINDINGS: The lungs are clear without edema or pneumonia. No pleural effusion or pneumothorax. Heart size is normal. IMPRESSION: 1. Clear lungs. Dictated by: Dictated on workstation # [id number]
[2021-06-26 11:55] VITALS: BP 156/72
[2021-06-26] MEDS ORDERED: CALCIUM CARBONATE 500 MG (TUMS) TAB.CHEW PO PRN (12:00)
[2021-06-26] MEDS ORDERED: diphenhydrAMINE 50 MG/ML INJ (BENADRYL) IVP PRN (12:00)
[2021-06-26] MEDS ORDERED: polyethylene glycoL POWDER 17 GM (MIRALAX) PACK PO PRN (12:00)
[2021-06-26] MEDS ORDERED: MILK OF MAGNESIA 400 MG/5 ML 30 ML UDC PO PRN (12:00)
[2021-06-26] MEDS ORDERED: ONDANSETRON 4 MG/2 ML (SDV) Z0FRAN IV PRN (12:00)
[2021-06-26] MEDS ORDERED: morphine INJ 4 MG/ML 1 ML (VIAL/SYRINGE) IV PRN (12:00)
[2021-06-26] MEDS ORDERED: ACETAMINOPHEN 325 MG TABLET PO PRN (12:00)
[2021-06-26] MEDS ORDERED: BISACODYL 10 MG SUPP (DULCOLAX) PR PRN (12:00)
[2021-06-26] MEDS ORDERED: diphenhydrAMINE 25 MG TAB (BENADRYL) PO PRN (12:00)
[2021-06-26] MEDS ORDERED: LACTULOSE SYRUP 10GM/15ML (ENULOSE) 30ML UDC PO PRN (12:00)
[2021-06-26] MEDS ORDERED: NITROGLYCERIN 0.4 MG SL TABS BTL 25'S SL PRN (12:00)
[2021-06-26] MEDS ORDERED: NALOXONE 0.4 MG/ML 1 ML (NARCAN) VIAL IV PRN (12:00)
[2021-06-26] MEDS ORDERED: ONDANSETRON 4 MG (ZOFRAN) ORAL DISSOLVE TAB PO PRN (12:00)
[2021-06-26] MEDS ORDERED: ENOXAPARIN 40 MG/0.4 ML (LOVENOX) SYR SC SCH (12:00)
[2021-06-26] MEDS ORDERED: MELATONIN 3 MG TABLET PO PRN (12:00)
[2021-06-26] MEDS ORDERED: ANTACID SUSP 30 ML UDC (MYLANTA) PO PRN (12:00)
[2021-06-26] MEDS ORDERED: FLU QUAD HIGH DOSE 240 MCG/0.7 ML 2021-22 (FLUZONE) IM ONE (12:30)
[2021-06-26] MEDS ORDERED: PRAS10TA10 PO (14:43)
[2021-06-26] MEDS ORDERED: ASPI-1238 PO (14:45)
[2021-06-26] MEDS ORDERED: OMEP20CA18 PO (14:46)
--- NOTE | 2021-06-26 15:14 | Consultation-Cardiology ---
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 Each episode has occurred at night and woken him from sleep, each has lasted several minutes, took s/l NTG for a similar episode this am and states it relieved it. Denies palp or syncope. Has chronic, slowly progressive shortness of breath. Denies swelling. Notes some gen malaise Review of Systems-Cardiology Review of Systems Constitutional: lightheadedness, malaise, tiredness; No weight loss, No weight gain Eyes: No vision change Ears/Nose/Throat: No ear discharge, No nasal drainage, No recent hearing loss Respiratory: As described under HPI Cardiovascular: As described under HPI Gastrointestinal: No diarrhea, No nausea, No vomiting Genitourinary: No dysuria, No hematuria, No urine frequency changes Musculoskeletal: back pain (chronic) Skin: No rash, No ulcerations Psychiatric/Neurological: No seizure, No focal weakness, No syncope Hematologic: No bleeding abnormalities All Other Systems Reviewed Negative Unless Noted: Yes PIW-Dpgwiu-Kxfool Hx Patient Social History Smoking Status: Former Smoker Have you traveled recently?: No Alcohol Use?: Yes Pt feels they are or have been: No Past Medical History PMH As described under Assessment. Family Medical History Family Medical History: He does not report fam h/o early CAD Allergies and Home Medications Allergies Coded Allergies: clopidogrel (Verified Allergy, Unknown, 01/02/07) Patient Home Medication List Home Medication List Reviewed: Yes Aspirin (Aspirin EC) 81 Mg Tablet., 81 MG PO BID, (Reported) Entered as Reported by: MIKAYLA SMITH on 06/26/21 1445 Last Action: Reviewed Atorvastatin Calcium (Atorvastatin Calcium) 80 Mg Tablet, 80 MG PO DAILY, (R eported) Entered as Reported by: ARIANNA TOMAS on 02/19/19 0804 Last Action: Reviewed Enalapril Maleate (Enalapril Maleate) 10 Mg Tablet, 10 MG PO BID, (Reported) Entered as Reported by: YUMIKO RAY on 08/21/191355 Last Action: Reviewed Folic Acid (Folic Acid) 1 Mg Tablet, 1 MG PO BID, (Reported) Entered as Reported by: ARIANNA TOMAS on 02/19/19803 Last Action: Reviewed Hydrochlorothiazide (Hydrochlorothiazide) 25 Mg Tablet, 25 MG PO DAILY, (Reported) Entered as Reported by: YUMIKO RAY on 08/21/191355 Last Action: Reviewed Metoprolol Succinate (Metoprolol Succinate) 50 Mg Tab.er.24h, 50 MG PO DAILY, (Reported) Entered as Reported by: ARIANNA TOMAS on 02/19/19803 Last Action: Reviewed Multivit-Min/FA/Lycopen/Lutein (Centravites 50 Plus Tablet) 1 Each Tablet, 1 EACH PO DAILY, (Reported) Entered as Reported by: ARIANNA TOMAS on 02/19/19803 Last Action: Reviewed Nitroglycerin (Nitroglycerin) 0.4 Mg Tab.subl, 0.4 MG SL UD PRN for CHEST PAIN, (Reported) Entered as Reported by: ARIANNA TOMAS on 02/19/19806 Last Action: Reviewed [place]-3 Fatty Acids ([place]-3) 1,000 Mg Capsule, 1,000 MG PO HS, (Reported) Entered as Reported by: ARIANNA TOMAS on 02/19/19803 Last Action: Reviewed Omeprazole (Omeprazole) 20 Mg Capsule.dr, 20 MG PO DAILY, (Reported) Entered as Reported by: MIKAYLA SMITH on 06/26/21 1446 Last Action: Reviewed Prasugrel HCl (Prasugrel HCl) 10 Mg Tablet, 10 MG PO DAILY, (Reported) Entered as Reported by: MIKAYLA SMITH on 06/26/21 1443 Last Action: Reviewed Discontinued Medications Amlodipine Besylate (Amlodipine Besylate) 10 Mg Tablet, 10 MG PO HS, (Reported) Discontinued Reason: No Longer Taking Entered as Reported by: ARIANNA TOMAS on 02/19/19803 Last Action: Discontinued Aspirin (Aspirin EC) 325 Mg Tablet.dr, 325 MG PO DAILY, (Reported) Discontinued Reason: No Longer Taking Entered as Reported by: ARIANNA TOMAS on 02/19/19803 Last Action: Discontinued Naproxen Sodium (Aleve) 220 Mg Capsule, 440 MG PO Q8H PRN for PAIN-MILD, (Reported) Discontinued Reason: No Longer Taking Entered as Reported by: ARIANNA TOMAS on 02/19/19 0810 Last Action: Discontinued Physical Exam-Cardiology Physical Exam Vital Signs/I&O 06/26/21 06/26/21 06/26/21 06/26/21 09:48 11:41 11:55 12:00 Temp 36.9 36.5 Pulse 67 66 66 Resp 23 18 18 B/P (MAP) 174/84 (114) 145/64 156/72 (100) Pulse Ox 99 97 100 O2 Delivery Room Air Room Air 06/26/21 13:47 Pulse 59 Capillary Refill : Less Than 3 Seconds Constitutional: AAO x 3, well-developed, well-nourished HEENT: EOMI, hearing is well preserved; No xanthelasmas are seen Neck: carotid pulses are 2 + bilaterally, with good upstrokes Respiratory: No accessory muscle use; other (fair to good, bilateral air entry) Cardiovascular: regular rate-rhythm, S1 and S2, systolic murmur (soft DUC at card basee) Gastrointestinal: No tender; soft; No guarding, No rebound; audible bowel sounds Extremities: No clubbing, No cyanosis, No significant edema Neurologic/Psychiatric: oriented x 3, other (moves all limbs equally) Skin: normal color, warm/dry; No rash on exposed areas, No ulcerations on exposed areas Data Review Labs Laboratory Tests 06/26/21 09:57: White Blood Count 7.8, Red Blood Count 4.05L, Hemoglobin 12.2L, Hematocrit 37L, Mean Corpuscular Volume 91, Mean Corpuscular Hemoglobin 30, Mean Corpuscular Hemoglobin Concent 33, Red Cell Distribution Width 14.0, Platelet Count 216, Mean Platelet Volume 9.1, Immature Granulocyte % (Auto) 1, Neutrophils (%) (Auto) 54, Lymphocytes (%) (Auto) 30, Monocytes (%) (Auto) 12, Eosinophils (%) (Auto) 2, Basophils (%) (Auto) 1, Neutrophils # (Auto) 4.2, Lymphocytes # (Auto) 2.3, Monocytes # (Auto) 1.0, Eosinophils # (Auto) 0.2, Basophils # (Auto) 0.1, Immature Granulocyte # (Auto) 0.1, Prothrombin Time 12.4, INR Comment 0.9, Activated Partial Thromboplast Time 29, Sodium Level 136, Potassium Level 3.8, Chloride Level 101, Carbon Dioxide Level 24, Anion Gap 11, Blood Urea Nitrogen 18, Creatinine 1.42H, Estimat Glomerular Filtration Rate 52, BUN/Creatinine Ratio 13, Glucose Level 83, Calcium Level 9.3, Corrected Calcium 9.3, Magnesium Level 1.7, Total Bilirubin 0.4, Aspartate Amino Transf (AST/SGOT) 27, Alanine Aminotransferase (ALT/SGPT) 13, Alkaline Phosphatase 73, Myoglobin 90.4, Troponin I < 0.028, Total Protein 7.2, Albumin 4.0 06/26/21 10:20: Influenza Type A (RT-PCR) Not Detected, Influenza Type B (RT-PCR) Not Detected, SARS-CoV-2 RNA (RT-PCR) Not Detected Laboratory Tests 06/26/21 09:57 A/P-Cardiology Assessment/Admission Diagnosis Chest, neck, and L shoulder discomfort without evidence of ac NH, so far Coronary artery disease - Card cath February [address] Kang with balloon angioplasty for in-stent restenosis within the proximal to mid LAD MultiLink vision 3.023 mm stent and successful stenting of the mid LAD with Promus 3.0 x 12 mm stent. - Stress test July 2019: no ischemia or infarction - Last card cath after myocardial infarction in January 2021 after knee surgery: cor intervention at [facility] by Dr. Coronado, details unknown History of diastolic congestive heart failure - last echocardiogram of Jul 2019: EF 55-65 percent, aortic valve sclerosis, PA 30 mmHg. Hypertension CKD 2-3 H/o hyperlipidemia Peripheral vascular disease -History of iliac stenting, using [id number] SMART stent in the right iliac artery, done in 2007, asymptomatic, -Angiogram was done on February 19, 2019 showing the previously placed iliac stents were patent with mild to moderate disease slightly more pronounced on the right, nonobstructive disease with pressure gradient of 20 mmHg, heavily calcified left SFA with moderate disease nonobstructive disease down to the trifurcation, heavily calcified right SFA with moderate disease in the midportion with good flow down to the trifurcation, diffuse atherosclerotic plaques in the abdominal aorta with no dissection or aneurysm noted. - ROSALIND was done in October 2020 and they were mildly abnormal bilaterally; ROSALIND 0.71 on the right with TBI 0.55; on the left side ROSALIND was 0.81 and TBI 0.43 Chronic back pain L4-L5 discectomy and fusion, extensive surgery done in [facility]'s by Dr. Mahan Mild bilateral nonobstructive carotid artery stenosis, last ultrasound was done in October 2020 Tobaccoism, has stopped smoking in 2019 DJD - Status post left knee replacement surgery done in January 2021 Discussion and Recomendations * Continue DAPT * Add nitropaste * Add beta-betty * Add statin * Serial enzymes and ECGs * Monitor labs * Further recs to be based on hosp course Clinical Quality Measures AMI/AHF: ASA po Prior to arrival: Yes (81MG) DOMINIQUE KANG MD FACP FACC CCDS Jun 26, 2021 15:14
[2021-06-26] MEDS ORDERED: PRASUGREL 10 MG (EFFIENT) TABLET PO ONE (15:15)
[2021-06-26] MEDS ORDERED: oxyCODONE/APAP 5/325MG (PERCOCET 5) TABLET PO PRN (15:15)
[2021-06-26 15:30] VITALS: BP 112/57
[2021-06-26 19:43] VITALS: BP 131/70
[2021-06-26] MEDS: DOCUSATE SODIUM 100 MG (COLACE) CAP PO SCH (20:25)
[2021-06-26] MEDS: SENNOSIDES 8.6 MG (SENOKOT) TAB PO SCH (20:25)
[2021-06-26] MEDS ORDERED: AtorvaSTATin TABLET 10 MG TABLET PO SCH (21:00)
[2021-06-26] MEDS: NITROGLYCERIN 2% OINT 1 GM UNIT DOSE PACKET TOP SCH (21:15)
[2021-06-27 00:40] VITALS: BP 119/72
[2021-06-27 04:59] VITALS: BP 110/60
[2021-06-27] MEDS: NITROGLYCERIN 2% OINT 1 GM UNIT DOSE PACKET TOP SCH (05:20)
[2021-06-27 06:27] LABS: BASOPHILS # (AUTO) 0.1 10^3/uL (0.0-0.1); BASOPHILS % (AUTO) 1 % (0-10); EOSINOPHILS # (AUTO) 0.2 10^3/uL (0.0-0.3); EOSINOPHILS % (AUTO) 2 % (0-10); HEMATOCRIT 34 % (40-54); HEMOGLOBIN 11.4 g/dL (13.3-17.7); LYMPHOCYTES # (AUTO) 2.5 10^3/uL (1.0-4.0); LYMPHOCYTES % (AUTO) 28 % (12-44); MEAN CORPUSCULAR HEMOGLOBIN 30 pg (25-34); MEAN CORPUSCULAR HGB CONC 34 g/dL (32-36); MEAN CORPUSCULAR VOLUME 90 fL (80-99); MEAN PLATELET VOLUME 9.6 fL (9.0-12.2); MONOCYTES % (AUTO) 11 % (0-12); NEUTROPHILS # (AUTO) 5.1 10^3/uL (1.8-7.8); NEUTROPHILS % (AUTO) 57 % (42-75); PLATELET COUNT 208 10^3/uL (130-400); WHITE BLOOD COUNT 8.9 10^3/uL (4.3-11.0)
[2021-06-27 06:50] LABS: ALBUMIN 3.7 GM/DL (3.2-4.5)
[2021-06-27 06:51] LABS: CHLORIDE 102 MMOL/L (98-107); POTASSIUM 4.4 MMOL/L (3.6-5.0); SODIUM 132 MMOL/L (135-145)
[2021-06-27 06:52] LABS: CALCIUM 8.8 MG/DL (8.5-10.1); TRIGLYCERIDES 57 MG/DL (<150); VLDL CHOLESTEROL 11 MG/DL (5-40)
[2021-06-27 06:53] LABS: GLUCOSE 89 MG/DL (70-105); TOTAL PROTEIN 6.5 GM/DL (6.4-8.2)
[2021-06-27 06:54] LABS: CARBON DIOXIDE 20 MMOL/L (21-32)
[2021-06-27 06:55] LABS: BILIRUBIN,TOTAL 0.4 MG/DL (0.1-1.0)
[2021-06-27 06:56] LABS: ALKALINE PHOSPHATASE 74 U/L (40-136)
[2021-06-27 06:57] LABS: CHOLESTEROL 114 MG/DL (< 200); CREATININE SERUM 1.33 MG/DL (0.60-1.30); GFR ESTIMATED 56; HDL CHOLESTEROL 43 MG/DL (40-60)
[2021-06-27 06:58] LABS: BUN/CREATININE RATIO 17
[2021-06-27 07:00] LABS: ALANINE AMINOTRANSFERASE 13 U/L (0-55)
[2021-06-27 07:15] VITALS: BP 122/58
[2021-06-27] MEDS ORDERED: PRASUGREL 10 MG (EFFIENT) TABLET PO SCH (09:00)
[2021-06-27] MEDS ORDERED: ISOS30TA82 PO (10:11)
--- NOTE | 2021-06-27 10:11 | Cardiology Progress Note ---
Subjective Date Seen by Provider: Jun 27, 2021 Time Seen by Provider: 10:06 Subjective/Events-last exam Patient was seen at bedside, laying down comfortably, denied any active chest pain since admission. Review of Systems General: No Chills, No Night Sweats, No Fatigue, No Malaise, No Appetite, No Other HEENT: No Head Aches, No Visual Changes, No Eye Pain, No Ear Pain, No Dysphasia, No Sinus Congestion, No Post Nasal Drip, No Sore Throat, No Other Pulmonary: No Dyspnea, No Cough, No Pleuritic Chest Pain, No Other Cardiovascular: No: Chest Pain, Palpitations, Orthopnea, Paroxysmal Noc. Dyspnea, Edema, Lt Headedness, Other Objective-Cardiology Exam Last Set of Vital Signs Vital Signs 06/27/21 06/27/21 07:15 08:00 Temp 36.6 Pulse 54 Resp 18 B/P (MAP) 122/58 (79) Pulse Ox 96 O2 Delivery Room Air I&O Intake and Output 06/26/21 23:59 Intake Total 1430 ml Output Total 500 ml Balance 930 ml Intake Oral 1430 ml Output Urine Total 500 ml # Voids 1 Daily Weight Change No General: Alert, Oriented X3, Cooperative HEENT: Atraumatic, PERRLA Neck: Supple, No JVD, No Thyromegaly Lungs: Clear to Auscultation, Normal Air Movement Heart: Regular Rate, Normal S1, Normal S2, No Murmurs Abdomen: Normal Bowel Sounds, Soft, No Tenderness, No Hepatosplenomegaly, No Masses Extremities: No Clubbing, No Cyanosis, No Edema, Normal Pulses, No Tenderness/Swelling Skin: No Rashes, No Breakdown, No Significant Lesion Neuro: Normal Gait, Normal Speech, Strength at 5/5 X4 Ext, Normal Tone, Sensation Intact Psych/Mental Status: Mental Status NL, Mood NL Results Lab Laboratory Tests 06/27/21 06:08 A/P-Cardiology Admission Diagnosis Chest pain Coronary artery disease Peripheral arterial disease Hypertension Assessment/Plan Chest pain, resembling angina, EKG did not show any acute abnormality, cardiac enzymes were negative, I am planning to evaluate stress test as an outpatient. I will start him on isosorbide for now and evaluate tolerance and response. Coronary artery disease, history of cardiac catheterization in February 2008 with balloon angioplasty for in-stent restenosis within the proximal to mid LAD. Had stress test in July 2019 showing no ischemia or infarction, reporting having a heart attack in January 2021 after a knee surgery at [facility] transferred to [place] and Dr. Coronado did an intervention. Planning to evaluate stress test. History of congestive heart failure, resolved, normal EF. Hypertension, controlled, restart home medication and continue to monitor Hyperlipidemia, monitor lipids Peripheral arterial disease, History of iliac stenting, using [id number] SMART stent in the right iliac artery done in 2007. .Angiogram was done on February 19, 2019 showing the previously placed iliac stents were patent with mild to moderate disease slightly more pronounced on the right, nonobstructive disease with pressure gradient of 20 mmHg, heavily calcified left SFA with moderate disease nonobstructive disease down to the trifurcation, heavily calcified right SFA with moderate disease in the midportion with good flow down to the trifurcation, diffuse atherosclerotic plaques in the abdominal aorta with no dissection or aneurysm noted. ROSALIND was done in October 2020 and they were mildly abnormal bilaterally off 0.71 on the right with TBI 0.55. And on the left side ROSALIND was 0.81 and TBI 0.43. Continue to monitor History of L4-L5 discectomy and fusion, had extensive surgery at [facility] with Dr. Harris, doing better. Mild carotid stenosis, ultrasound was done in October 2020, continue to monitor Tobaccoism, reporting that he has stopped smoking in 2019. Encouraged to continue with smoking cessation. History of left knee replacement surgery in January 2021. NESTOR NEFF MD Jun 27, 2021 10:10
[2021-06-27] MEDS ORDERED: ISOSORBIDE MONONITRATE 30 MG (IMDUR) TAB PO SCH (10:15)
[2021-06-27] MEDS: DOCUSATE SODIUM 100 MG (COLACE) CAP PO SCH (10:18)
[2021-06-27] MEDS: SENNOSIDES 8.6 MG (SENOKOT) TAB PO SCH (10:18)
--- NOTE | 2021-06-27 11:00 | Discharge Summary ---
Diagnosis/Chief Complaint Date of Admission Jun 26, 2021 at 11:15 Date of Discharge Discharge Date: Jun 27, 2021 Discharge Diagnosis Assessment: Unstable angina CAD previous stents Hypertension Hyperlipidemia Plan: Serial troponins Cardiology consult Discharge Summary Discharge Physical Examination Allergies: Coded Allergies: clopidogrel (Verified Allergy, Unknown, 01/02/07) Vitals & I&Os Vital Signs Date Time Temp Pulse Resp B/P (MAP) Pulse Ox O2 Delivery O2 Flow Rate FiO2 06/27/21 11:50 36.6 54 18 122/58 96 Room Air General Appearance: Alert, Oriented X3, Cooperative Respiratory: Clear to Auscultation Cardiovascular: Regular Rate Neuro: Normal Gait, Normal Speech, Strength at 5/5 X4 Ext Psych/Mental Status: Mental Status NL Hospital Course Was the Problem List Reviewed?: Yes Brief Hospital Course: Patient is a 76 year old white male who presented to the ED on 06/26/2021 with a chief complaint of chest pain, suspicious for acute coronary syndrome. Patient has a past medical history significant for AR and stent placement. The patient's initial troponin and EKG were normal. The patient is a clinic patient of Dr. Mendez. Cardiology was consulted and the patient was admitted for observation with serial troponins and close monitoring. Chest x-ray revealed clear lungs and a normal heart size. Prasugrel, Metoprolol, Nitro glycerin ointment, Atorvastatin, and Lovenox therapies were initiated. EKG on 06/27 demonstrated sinus rhythm. Troponin I showed no change. Lipid panel was unremarkable. Per Cardiology patient was stable to discharge. Isosorbide mononitrate was added to patient's medication regimen upon discharge. Patient will follow-up with Cardiology and has a stress test scheduled for 06/29/2021. This summary does not include the entirety of the patient's stay; it is a brief description of pertinent events. Full description of care can be found throughout the patient's chart. Date of admission: 06/26/2021 Date of discharge: 06/27/2021 Attending physician: Dr. Marilynn Carter Admission diagnosis: Unstable angina, CAD with previous stenting, HTN, history of hyperlipidemia Discharge diagnosis: Unstable angina, CAD with previous stenting, HTN, history of hyperlipidemia Secondary diagnoses: CKD, PVD, carotid artery stenosis Consultations: Cardiology ROBBIE LOPEZ Jun 27, 2021 12:40 Labs (last 24 hrs) Laboratory Tests 06/26/21 09:57: White Blood Count 7.8, Red Blood Count 4.05L, Hemoglobin 12.2L, Hematocrit 37L, Mean Corpuscular Volume 91, Mean Corpuscular Hemoglobin 30, Mean Corpuscular He moglobin Concent 33, Red Cell Distribution Width 14.0, Platelet Count 216, Mean Platelet Volume 9.1, Immature Granulocyte % (Auto) 1, Neutrophils (%) (Auto) 54, Lymphocytes (%) (Auto) 30, Monocytes (%) (Auto) 12, Eosinophils (%) (Auto) 2, Basophils (%) (Auto) 1, Neutrophils # (Auto) 4.2, Lymphocytes # (Auto) 2.3, Monocytes # (Auto) 1.0, Eosinophils # (Auto) 0.2, Basophils # (Auto) 0.1, Immature Granulocyte # (Auto) 0.1, Prothrombin Time 12.4, INR Comment 0.9, Activated Partial Thromboplast Time 29, Sodium Level 136, Potassium Level 3.8, Chloride Level 101, Carbon Dioxide Level 24, Anion Gap 11, Blood Urea Nitrogen 18, Creatinine 1.42H, Estimat Glomerular Filtration Rate 52, BUN/Creatinine Ratio 13, Glucose Level 83, Calcium Level 9.3, Corrected Calcium 9.3, Magnesium Level 1.7, Total Bilirubin 0.4, Aspartate Amino Transf (AST/SGOT) 27, Alanine Aminotransferase (ALT/SGPT) 13, Alkaline Phosphatase 73, Myoglobin 90.4, Troponin I < 0.028, Total Protein 7.2, Albumin 4.0 06/26/21 10:20: Influenza Type A (RT-PCR) Not Detected, Influenza Type B (RT-PCR) Not Detected, SARS-CoV-2 RNA (RT-PCR) Not Detected 06/26/21 15:30: Troponin I < 0.028 06/27/21 06:08: White Blood Count 8.9, Red Blood Count 3.79L, Hemoglobin 11.4L, Hematocrit 34L, Mean Corpuscular Volume 90, Mean Corpuscular Hemoglobin 30, Mean Corpuscular Hemoglobin Concent 34, Red Cell Distribution Width 14.1, Platelet Count 208, Mean Platelet Volume 9.6, Immature Granulocyte % (Auto) 1, Neutrophils (%) (Auto) 57, Lymphocytes (%) (Auto) 28, Monocytes (%) (Auto) 11, Eosinophils (%) (Auto) 2, Basophils (%) (Auto) 1, Neutrophils # (Auto) 5.1, Lymphocytes # (Auto) 2.5, Monocytes # (Auto) 1.0, Eosinophils # (Auto) 0.2, Basophils # (Auto) 0.1, Immature Granulocyte # (Auto) 0.1, Sodium Level 132L, Potassium Level 4.4, Chloride Level 102, Carbon Dioxide Level 20L, Anion Gap 10, Blood Urea Nitrogen 23H, Creatinine 1.33H, Estimat Glomerular Filtration Rate 56, BUN/Creatinine Ra fredrick 17, Glucose Level 89, Calcium Level 8.8, Corrected Calcium 9.0, Total Bilirubin 0.4, Aspartate Amino Transf (AST/SGOT) 27, Alanine Aminotransferase (ALT/SGPT) 13, Alkaline Phosphatase 74, Troponin I < 0.028, Total Protein 6.5, Albumin 3.7, Triglycerides Level 57, Cholesterol Level 114, LDL Cholesterol Direct 53, VLDL Cholesterol 11, HDL Cholesterol 43 Pending Labs Laboratory Tests 06/26/21 09:57: White Blood Count 7.8, Red Blood Count 4.05, Hemoglobin 12.2, Hematocrit 37, Mean Corpuscular Volume 91, Mean Corpuscular Hemoglobin 30, Mean Corpuscular Hemoglobin Concent 33, Red Cell Distribution Width 14.0, Platelet Count 216, Mean Platelet Volume 9.1, Immature Granulocyte % (Auto) 1, Neutrophils (%) (Auto) 54, Lymphocytes (%) (Auto) 30, Monocytes (%) (Auto) 12, Eosinophils (%) (Auto) 2, Basophils (%) (Auto) 1, Neutrophils # (Auto) 4.2, Lymphocytes # (Auto) 2.3, Monocytes # (Auto) 1.0, Eosinophils # (Auto) 0.2, Basophils # (Auto) 0.1, Immature Granulocyte # (Auto) 0.1, Prothrombin Time 12.4, INR Comment 0.9, Activated Partial Thromboplast Time 29, Sodium Level 136, Potassium Level 3.8, Chloride Level 101, Carbon Dioxide Level 24, Anion Gap 11, Blood Urea Nitrogen 18, Creatinine 1.42, Estimat Glomerular Filtration Rate 52, BUN/Creatinine Ratio 13, Glucose Level 83, Calcium Level 9.3, Corrected Calcium 9.3, Magnesium Level 1.7, Total Bilirubin 0.4, Aspartate Amino Transf (AST/SGOT) 27, Alanine Aminotransferase (ALT/SGPT) 13, Alkaline Phosphatase 73, Myoglobin 90.4, Tropo vishal I < 0.028, Total Protein 7.2, Albumin 4.0 06/26/21 10:20: Influenza Type A (RT-PCR) Not Detected, Influenza Type B (RT-PCR) Not Detected, SARS-CoV-2 RNA (RT-PCR) Not Detected 06/26/21 15:30: Troponin I < 0.028 06/27/21 06:08: White Blood Count 8.9, Red Blood Count 3.79, Hemoglobin 11.4, Hematocrit 34, Mean Corpuscular Volume 90, Mean Corpuscular Hemoglobin 30, Mean Corpuscular Hemoglobin Concent 34, Red Cell Distribution Width 14.1, Platelet Count 208, Mean Platelet Volume 9.6, Immature Granulocyte % (Auto) 1, Neutrophils (%) (Auto) 57, Lymphocytes (%) (Auto) 28, Monocytes (%) (Auto) 11, Eosinophils (%) (Auto) 2, Basophils (%) (Auto) 1, Neutrophils # (Auto) 5.1, Lymphocytes # (Auto) 2.5, Monocytes # (Auto) 1.0, Eosinophils # (Auto) 0.2, Basophils # (Auto) 0.1, Immature Granulocyte # (Auto) 0.1, Sodium Level 132, Potassium Level 4.4, Chloride Level 102, Carbon Dioxide Level 20, Anion Gap 10, Blood Urea Nitrogen 23, Creatinine 1.33, Estimat Glomerular Filtration Rate 56, BUN/Creatinine Ratio 17, Glucose Level 89, Calcium Level 8.8, Corrected Calcium 9.0, Total Bilirubin 0.4, Aspartate Amino Transf (AST/SGOT) 27, Alanine Aminotransferase (ALT/SGPT) 13, Alkaline Phosphatase 74, Troponin I < 0.028, Total Protein 6.5, Albumin 3.7, Triglycerides Level 57, Cholesterol Level 114, LDL Cholesterol Direct 53, VLDL Cholesterol 11, HDL Cholesterol 43 Discharge Home Medications: Active Scripts Active Isosorbide Mononitrate ER (Isosorbide Mononitrate) 30 Mg Tab.er.24h 30 Mg PO DAILY Reported Omeprazole 20 Mg Capsule.dr 20 Mg PO DAILY Aspirin EC (Aspirin) 81 Mg Tablet.dr 81 Mg PO BID Prasugrel HCl 10 Mg Tablet 10 Mg PO DAILY Hydrochlorothiazide 25 Mg Tablet 25 Mg PO DAILY Enalapril Maleate 10 Mg Tablet 10 Mg PO BID Nitroglycerin 0.4 Mg Tab.subl 0.4 Mg SL UD PRN Folic Acid 1 Mg Tablet 1 Mg PO BID Montgomery-3 (Montgomery-3 Fatty Acids) 1,000 Mg Capsule 1,000 Mg PO HS Centravites 50 Plus Tablet (Multivit-Min/FA/Lycopen/Lutein) 1 Each Tablet 1 Each PO DAILY Atorvastatin Calcium 80 Mg Tablet 80 Mg PO DAILY Metoprolol Succinate 50 Mg Tab.er.24h 50 Mg PO DAILY Instructions to patient/family Please see electronic discharge instructions given to patient. Diagnosis/Problems Diagnosis/Problems (1) Unstable angina Status: Acute (2) Chest pain Status: Acute Clinical Quality Measures AMI/AHF: ASA po Prior to arrival: Yes (81MG) MARILYNN CARTER DO Jun 27, 2021 11:00
[2021-06-27 11:50] VITALS: BP 122/58
--- NOTE | 2021-06-27 12:40 | Progress Note ---
ROBBIE LOPEZ 06/27/21 1240: Progress Note Brief Hospital Course: Patient is a 76 year old white male who presented to the ED on 06/26/2021 with a chief complaint of chest pain, suspicious for acute coronary syndrome. Patient has a past medical history significant for PA and stent placement. The patient's initial troponin and EKG were normal. The patient is a clinic patient of Dr. Mendez. Cardiology was consulted and the patient was admitted for observation with serial troponins and close monitoring. Chest x-ray revealed clear lungs and a normal heart size. Prasugrel, Metoprolol, Nitroglycerin ointment, Atorvastatin, and Lovenox therapies were initiated. EKG on 06/27 demonstrated sinus rhythm. Troponin I showed no change. Lipid panel was unremarkable. Per Cardiology patient was stable to discharge. Isosorbide mononitrate was added to patient's medication regimen upon discharge. Patient will follow-up with Cardiology and has a stress test scheduled for 06/29/2021. This summary does not include the entirety of the patient's stay; it is a brief description of pertinent events. Full description of care can be found throughout the patient's chart. Date of admission: 06/26/2021 Date of discharge: 06/27/2021 Attending physician: Dr. Marilynn Carter Admission diagnosis: Unstable angina, CAD with previous stenting, HTN, history of hyperlipidemia Discharge diagnosis: Unstable angina, CAD with previous stenting, HTN, history of hyperlipidemia Secondary diagnoses: CKD, PVD, carotid artery stenosis Consultations: Cardiology MARILYNN CARTER DO 06/28/21 0546: Supervisory-Addendum Brief Verification & Attestation Participated in pt care: history, MDM, physical Personally performed: exam, history, MDM, supervision of care Care discussed with: Medical Student Procedures: n/a Results interpretation: Verified all documentation Verification and Attestation of Medical Student E/M Service A medical student performed and documented this service in my presence. I reviewed and verified all information documented by the medical student and made modifications to such information, when appropriate. I personally performed the physical exam and medical decision making. Marilynn Carter, Jun 28, 2021,05:46 ROBBIE LOPEZ Jun 27, 2021 12:40 MARILYNN CARTER DO Jun 28, 2021 05:46
[2021-06-29] MEDS ORDERED: ISOS30TA82 PO (11:12)
[2021-06-29] MEDS ORDERED: FOLI0.8T4 PO (11:12)
== END 2021-06-27 11:50 | disposition home or self-care (01) ==
LOC: EDUNIT# 09:45 → ER 09:47 → 4TH 11:15
PROVIDERS: ADMIT Internal Medicine; ATTEND Internal Medicine
DX: I25.110 Atherosclerotic heart disease of native coronary artery with unstable angina pectoris (principal); I12.9 Hypertensive chronic kidney disease with stage 1 through stage 4 chronic kidney disease, or unspecified chronic kidney disease; N18.9 Chronic kidney disease, unspecified; I73.9 Peripheral vascular disease, unspecified; I25.10 Atherosclerotic heart disease of native coronary artery without angina pectoris; I25.2 Old myocardial infarction; I50.9 Heart failure, unspecified; I65.23 Occlusion and stenosis of bilateral carotid arteries; M19.90 Unspecified osteoarthritis, unspecified site; M54.9 Dorsalgia, unspecified; E78.5 Hyperlipidemia, unspecified; G89.29 Other chronic pain; Z87.891 Personal history of nicotine dependence; Z79.82 Long term (current) use of aspirin; Z79.899 Other long term (current) drug therapy
CPT/HCPCS: 36415; 71045; 80053; 80061; 83735; 83874; 84484; 85025; 85610; 85730; 87636; 93005; G0378

== ENCOUNTER → 2022-02-14 | Outpatient (CLI) | payer MEDICARE, OTHER ==
[~2022-02-14] MED LIST changes: +ASPI-1238 PO; +FOLI0.8T4 PO; +ISOS30TA82 PO; +OMEP20CA18 PO; +PRAS10TA10 PO
== END ==
LOC: CARD 13:52
PROVIDERS: ATTEND Internal Medicine Cardiovascular Disease
DX: I34.2 Nonrheumatic mitral (valve) stenosis (principal); I10 Essential (primary) hypertension
CPT/HCPCS: 93306

== ENCOUNTER 2022-11-01 00:41 | Inpatient (IN) | payer MEDICARE, OTHER ==
[~2022-11-01] VITALS: Ht 165 cm; Wt 83.6 kg
[2022-11-01] VITALS (20 sets, daily range): BP systolic 95–169; BP diastolic 55–92
[~2022-11-01 00:41] MED LIST changes: -ENAL10TA16 PO; +ENLP10T PO
[2022-11-01] MEDS ORDERED: NITROGLYCERIN 0.4 MG SL TABS BTL 25'S SL PRN (00:45)
[2022-11-01] MEDS ORDERED: ASPIRIN 81 MG CHEW (CHILDREN'S ASA) PO ONE (00:45)
[2022-11-01 00:55] LABS: BASOPHILS # (AUTO) 0.1 10^3/uL (0.0-0.1); BASOPHILS % (AUTO) 1 % (0-10); EOSINOPHILS # (AUTO) 0.3 10^3/uL (0.0-0.3); EOSINOPHILS % (AUTO) 4 % (0-10); HEMATOCRIT 36 % (40-54); HEMOGLOBIN 12.4 g/dL (13.3-17.7); LYMPHOCYTES # (AUTO) 2.9 10^3/uL (1.0-4.0); LYMPHOCYTES % (AUTO) 40 % (12-44); MEAN CORPUSCULAR HEMOGLOBIN 31 pg (25-34); MEAN CORPUSCULAR HGB CONC 34 g/dL (32-36); MEAN CORPUSCULAR VOLUME 92 fL (80-99); MEAN PLATELET VOLUME 9.2 fL (9.0-12.2); MONOCYTES % (AUTO) 14 % (0-12); NEUTROPHILS % (AUTO) 41 % (42-75); PLATELET COUNT 205 10^3/uL (130-400); WHITE BLOOD COUNT 7.3 10^3/uL (4.3-11.0)
[2022-11-01] MEDS ORDERED: morphine INJ 10 MG/ML 1ML (SYR OR VIAL) IVP STA (00:55)
[2022-11-01] MEDS ORDERED: NITROGLYCERIN 2% OINT 1 GM UNIT DOSE PACKET TOP ONE (01:00)
[2022-11-01] MEDS ORDERED: meTOprolol 5 MG/5 ML (LOPRESSOR) VIAL IV ONE (01:00)
[2022-11-01 01:03] LABS: ALBUMIN 4.2 GM/DL (3.2-4.5)
[2022-11-01 01:04] LABS: CHLORIDE 103 MMOL/L (98-107); POTASSIUM 4.2 MMOL/L (3.6-5.0); SODIUM 136 MMOL/L (135-145)
[2022-11-01 01:05] LABS: AMYLASE 123 U/L (25-125)
--- NOTE | 2022-11-01 01:05 | ED Chest Pain ---
General Chief Complaint: Chest Pain Stated Complaint: CHEST PAIN Nursing Triage Note: PT ARRIVED POV WITH C/O STERNAL CP THAT RADIATED TO THE LEFT ARM, WEAKNESS, AND SOB THAT STARTED AT 2230 10/31. PT TOOK 4 NITRO AT 2340. PT STATES THAT PAIN IS WORSE WITH WALKING. HX OF 9 STENTS. Source: patient, old records History of Present Illness Date Seen by Provider: November 01, 2022 Time Seen by Provider: 00:43 Initial Comments PT ARRIVES VIA POV FROM HOME--PT LIVES ALONE ( IN MAY 2022), GRAND DAUGHTER LIVES NEXT DOOR AND BROUGHT HIM TO ER C/O CHEST PAIN SINCE 2229 TONIGHT WAS AWAKE AND LAYING IN BED WHEN PAIN BEGAN PAIN IS IN CENTER OF CHEST, AND RADIATES INTO HIS BACK, DOWN HIS LEFT ARM AND INTO HIS NECK AND JAWS RATES PAIN 10/10 PAIN IS WORSE WITH MINIMAL ACTIVITY SUCH WALKING ACROSS ROOM HE HAS FELT SHORT OF BREATH GOT REALLY HOT, BUT DID NOT BREAK OUT IN A SWEAT NO DIZZINESS OR SYNCOPE NO PALPITATIONS NO SWELLING IN LEGS/ FEET OR PAIN IN CALVES NO NAUSEA/VOMITING C/O HEADACHE HE HAS TAKEN NTG SL X 4--WITH IMPROVEMENT IN PAIN. LAST NTG WAS 2340 PAIN IS BACK UP TO A 10/10 HE LATER STATES HE HAD SAME CHEST PAIN LAST NIGHT AND TOOK NTG X 1 AND IT WENT AWAY. HE HAS HAD A PRIOR [place] AND STATES THIS FEELS EXACTLY THE SAME HE HAS HAD A TOTAL OF 9 STENTS--IN HEART AND IN LEGS HE TAKES 81 MG ASPIRIN--TOOK ONE AT 1900 TONIGHT HE IS ALSO ON PRASUGREL/EFFIENT, WELL ENALAPRIL, METOPROLOL, ATORVASTATIN, ISOSORBIDE ER 30 MG PCP: FUNCTIONAL TESTER/PRICILLA RUIZ STRUCTURES TECHNICIAN: DR. NEFF--ROUTINE EXAM IN JULY. NO MEDICATION CHANGES. Allergies and Home Medications Allergies Coded Allergies: clopidogrel (Verified Allergy, Unknown, 01/02/07) Patient Home Medication List Home Medication List Reviewed: Yes Aspirin (Aspirin EC) 81 Mg Tablet., 81 MG PO BID, (Reported) Entered as Reported by: MIKAYLA SMITH on 06/26/21 1445 Atorvastatin Calcium (Atorvastatin Calcium) 80 Mg Tablet, 80 MG PO DAILY, (Reported) Entered as Reported by: ARIANNA TOMAS on 02/19/19 0804 Enalapril Maleate (Enalapril Maleate) 10 Mg Tablet, 10 MG PO BID, (Reported) Entered as Reported by: YUMIKO RAY on 08/21/19 1356 Folic Acid (Folic Acid) 0.8 Mg Tablet, 0.8 MG PO BID, (Reported) Entered as Reported by: MIESHA HERNANDEZ on 06/29/21 1112 Hydrochlorothiazide (Hydrochlorothiazide) 25 Mg Tablet, 25 MG PO DAILY, (Reported) Entered as Reported by: YUMIKO RAY on 08/21/19 1356 Isosorbide Mononitrate (Isosorbide Mononitrate ER) 30 Mg Tab.er.24h, 30 MG PO DAILY, (Reported) Entered as Reported by: MIESHA HERNANDEZ on 06/29/21 1112 Metoprolol Succinate (Metoprolol Succinate) 50 Mg Tab.er.24h, 50 MG PO DAILY, (Reported) Entered as Reported by: ARIANNA TOMAS on 02/19/19 0804 Multivit-Min/FA/Lycopen/Lutein (Centravites 50 Plus Tablet) 1 Each Tablet, 1 EACH PO DAILY, (Reported) Entered as Reported by: ARIANNA TOMAS on 02/19/19 0804 Nitroglycerin (Nitroglycerin) 0.4 Mg Tab.subl, 0.4 MG SL UD PRN for CHEST PAIN, (Reported) Entered as Reported by: ARIANNA TOMAS on 02/19/19 0807 Bradley-3 Fatty Acids (Bradley-3) 1,000 Mg Capsule, 1,000 MG PO HS, (Reported) Entered as Reported by: ARIANNA TOAMS on 02/19/19 0804 Omeprazole (Omeprazole) 20 Mg Capsule.dr, 20 MG PO DAILY, (Reported) Entered as Reported by: MIKAYLA SMITH on 06/26/21 1446 Prasugrel HCl (Prasugrel HCl) 10 Mg Tablet, 10 MG PO DAILY, (Reported) Entered as Reported by: MIKAYLA SMITH on 06/26/21 1443 Review of Systems Review of Systems Constitutional: see HPI EENTM: See HPI Respiratory: See HPI Cardiovascular: See HPI Gastrointestinal: No Symptoms Reported Genitourinary: No Symptoms Reported Musculoskeletal: see HPI Skin: no symptoms reported Psychiatric/Neurological: Headache Endocrine: No Symptoms Reported Hematologic/Lymphatic: No Symptoms Reported Past Aylllvz-Hpagtx-Ycrioc Hx Patient Social History Tobacco Use?: Yes Tobacco type used: Cigarettes Smoking Status: Former Smoker Substance use?: No Alcohol Use?: No Immunizations Up To Date First/Initial COVID19 Vaccinat: N/A Second COVID19 Vaccination Rojelio: N/A Third COVID19 Vaccination Date: N/A Seasonal Allergies Seasonal Allergies: No Past Medical History Surgery/Hospitalization HX: BACK AND KNEE SURGERIES [facility] [place], [place] Surgeries: Yes (stents in legs; CARDIAC CATHS--PT STATES 9 STENTS TOTAL) Cardiac, Coronary Stent, Joint Replacement, Orthopedic Respiratory: No Currently Using CPAP: No Cardiac: Yes Coronary Artery Disease, Heart Attack, High Cholesterol, Hypertension, Peripheral Vascular Neurological: No Reproductive Disorders: No Genitourinary: No Gastrointestinal: Yes Gastroesophageal Reflux Musculoskeletal: Yes Arthritis, Chronic Back Pain Endocrine: No HEENT: No Cancer: No Psychosocial: No Integumentary: No Blood Disorders: No Adverse Reaction/Blood Tranf: No Family Medical History No Pertinent Family Hx SOCIAL HISTORY: -SMOKED 1 PPD, QUIT AROUND 2019 -DENIES ETOH USE -DENIES DRUG USE ADDITIONAL PAST MEDICAL, SURGICAL AND PROCEDURAL HISTORY: Coronary artery disease - Card cath February [address] Kang with balloon angioplasty for in-stent restenosis within the proximal to mid LAD MultiLink vision 3.023 mm stent and successful stenting of the mid LAD with Promus 3.0 x 12 mm stent. - Stress test July 2019: no ischemia or infarction - Last card cath after myocardial infarction in January 2021 after knee surgery: cor intervention at [facility] by Dr. Coronado, details unknown History of diastolic congestive heart failure - last echocardiogram of Jul 2019: EF 55-65 percent, aortic valve sclerosis, PA 30 mmHg. Hypertension CKD 2-3 H/o hyperlipidemia Peripheral vascular disease -History of iliac stenting, using 760 SMART stent in the right iliac artery, done in 2007, asymptomatic, -Angiogram was done on February 19, 2019 showing the previously placed iliac stents were patent with mild to moderate disease slightly more pronounced on the right, nonobstructive disease with pressure gradient of 20 mmHg, heavily calcified left SFA with moderate disease nonobstructive disease down to the trifurcation, heavily calcified right SFA with moderate disease in the midportion with good flow down to the trifurcation, diffuse atherosclerotic plaques in the abdominal aorta with no dissection or aneurysm noted. - ROSALIND was done in October 2020 and they were mildly abnormal bilaterally; ROSALIND 0.71 on the right with TBI 0.55; on the left side ROSALIND was 0.81 and TBI 0.43 Chronic back pain L4-L5 discectomy and fusion, extensive surgery done in [facility]'s by Dr. Mahan Mild bilateral nonobstructive carotid artery stenosis, last ultrasound was done in October 2020 Tobaccoism, has stopped smoking in 2019 DJD - Status post left knee replacement surgery done in January 2021 CARDIAC CATH 06/29/[address] NEFF: CONCLUSION: 1. 70% calcified ostial left main coronary artery stenosis 2. 95% stenosis in the mid LAD within old stent, successful balloon angioplasty with excellent results, mild stenosis in the distal LAD 3. Moderate stenosis in the mid circumflex artery and mild to moderate disease in the mid right coronary artery DISCUSSION AND RECOMMENDATION: Continue on aspirin and Effient. I am planning to refer the patient for evaluation for possible high risk left main coronary intervention versus stenting Physical Exam Vital Signs Vital Signs - First Documented 11/01/22 00:46 Temp 36.4 Pulse 90 Resp 20 B/P (MAP) 197/105 (135) Pulse Ox 99 O2 Delivery Room Air Capillary Refill : Height, Weight, BMI Height: 5'5.00" Weight: 180lbs. 0.0oz. 81.551846zk; 29.00 BMI Method: General Appearance: No Apparent Distress, WD/WN, Other (LAUGHING, AND JOKING; DOES NOT APPEAR ILL OR TO BE IN ANY DISCOMFORT OR DISTRESS) HEENT: PERRL/EOMI, Other (EDENTULOUS) Neck: Full Range of Motion, Normal Inspection, Non Tender, Supple; No JVD Respiratory: Chest Non Tender, Normal Breath Sounds, No Accessory Muscle Use, No Respiratory Distress Cardiovascular: Regular Rate, Rhythm, No Edema, No JVD, No Murmur, Normal Peripheral Pulses Gastrointestinal: Normal Bowel Sounds, No Pulsatile Mass, Non Tender, Soft Extremity: Normal Capillary Refill, Normal Inspection, Normal Range of Motion, Non Tender, No Calf Tenderness, No Pedal Edema Neurologic/Psychiatric: Alert, Oriented x3, No Motor/Sensory Deficits, Normal Mood/Affect, 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-XII Norm as Tested Skin: Normal Color, Warm/Dry Progress/Results/Core Measures Results/Orders Lab Results Laboratory Tests Test 11/01/22 00:45 Range/Units White Blood Count 7.3 4.3-11.0 10^3/uL Red Blood Count 3.96 L 4.30-5.52 10^6/uL Hemoglobin 12.4 L 13.3-17.7 g/dL Hematocrit 36 L 40-54 % Mean Corpuscular Volume 92 80-99 fL Mean Corpuscular Hemoglobin 31 25-34 pg Mean Corpuscular Hemoglobin Concent 34 32-36 g/dL Red Cell Distribution Width 13.5 10.0-14.5 % Platelet Count 205 130-400 10^3/uL Mean Platelet Volume 9.2 9.0-12.2 fL Immature Granulocyte % (Auto) 1 % Neutrophils (%) (Auto) 41 L 42-75 % Lymphocytes (%) (Auto) 40 12-44 % Monocytes (%) (Auto) 14 H 0-12 % Eosinophils (%) (Auto) 4 0-10 % Basophils (%) (Auto) 1 0-10 % Neutrophils # (Auto) 3.0 1.8-7.8 10^3/uL Lymphocytes # (Auto) 2.9 1.0-4.0 10^3/uL Monocytes # (Auto) 1.0 0.0-1.0 10^3/uL Eosinophils # (Auto) 0.3 0.0-0.3 10^3/uL Basophils # (Auto) 0.1 0.0-0.1 10^3/uL Immature Granulocyte # (Auto) 0.0 0.0-0.1 10^3/uL Prothrombin Time 12.5 12.2-14.7 SEC INR Comment 0.9 0.8-1.4 Activated Partial Thromboplast Time 29 24-35 SEC Sodium Level 136 135-145 MMOL/L Potassium Level 4.2 3.6-5.0 MMOL/L Chloride Level 103 98-107 MMOL/L Carbon Dioxide Level 22 21-32 MMOL/L Anion Gap 11 5-14 MMOL/L Blood Urea Nitrogen 17 7-18 MG/DL Creatinine 1.48 H 0.60-1.30 MG/DL Estimat Glomerular Filtration Rate 49 BUN/Creatinine Ratio 11 Glucose Level 118 H 70-105 MG/DL Calcium Level 9.0 8.5-10.1 MG/DL Corrected Calcium 8.8 8.5-10.1 MG/DL Magnesium Level 1.3 L 1.6-2.4 MG/DL Total Bilirubin 0.5 0.1-1.0 MG/DL Aspartate Amino Transf (AST/SGOT) 37 H 5-34 U/L Alanine Aminotransferase (ALT/SGPT) 26 0-55 U/L Alkaline Phosphatase 72 40-136 U/L Total Creatine Kinase 106 30-200 U/L Creatine Kinase MB 3.7 <6.6 NG/ML Myoglobin 97.8 H 10.0-92.0 NG/ML Troponin I < 0.028 <0.028 NG/ML B-Type Natriuretic Peptide 64.1 <100.0 PG/ML Total Protein 6.9 6.4-8.2 GM/DL Albumin 4.2 3.2-4.5 GM/DL Amylase Level 123 25-125 U/L Lipase 60 8-78 U/L My Orders Orders - MARY BOOTH DO Troponin I [place] (11/01/22 00:44) Nitroglycerin 0.4 Mg Btl 25's (Nitrostat (11/01/22 00:45) Aspirin Chewable Tablet (Baby Aspirin Ch (11/01/22 00:45) Cbc With Automated Diff (11/01/22 00:44) Magnesium (11/01/22 00:44) Chest 1 View, Ap/Pa Only (11/01/22:44) Ekg Tracing (11/01/22:44) Comprehensive Metabolic Panel (11/01/22 00:44) Myoglobin Serum (11/01/22 00:44) Protime With Inr (11/01/22:44) Partial Thromboplastin Time (11/01/22:44) O2 (11/01/22 00:44) Monitor-Rhythm Ecg Trace Only (11/01/22 00:44) Ed Iv/Invasive Line Start (11/01/22 00:44) Creatine Kinase (11/01/22 00:44) Creatine Kinase Mb (11/01/22:44) Lipase (11/01/22 00:44) Amylase (11/01/22 00:44) Bnp Grady (11/01/22 00:44) Nitroglycerin Ointment (Nitrobid Ointme (11/01/22 01:00) Morphine Injection (Morphine Injection (11/01/22 00:55) Metoprolol Tartrate Injection (Lopressor (11/01/22 01:00) Enoxaparin Injection (Lovenox Injection) (11/01/22 01:30) Medications Given in ED Current Medications Medications Dose Ordered Sig/Zeenat Route Start Time Stop Time Status Last Admin Dose Admin Aspirin 324 mg ONCE ONCE PO 11/01/22 00:45 11/01/22 00:46 DC 11/01/22 00:51 324 MG Enoxaparin Sodium 80 mg ONCE ONCE SC 11/01/22 01:30 11/01/22 01:31 DC 11/01/22 01:31 80 MG Metoprolol Tartrate 5 mg ONCE ONCE IV 11/01/22 01:00 11/01/22 01:01 DC 11/01/22 01:03 5 MG Nitroglycerin 1 inch ONCE ONCE TOP 11/01/22 01:00 11/01/22 01:01 DC 11/01/22 01:03 1 INCH Vital Signs/I&O 11/01/22 00:46 Temp 36.4 Pulse 90 Resp 20 B/P (MAP) 197/105 (135) Pulse Ox 99 O2 Delivery Room Air Blood Pressure Mean: 135 Progress Progress Note : Progress Note GIVEN: -ASPIRIN -1" NITROPASTE -MORPHINE -LOPRESSOR VITALS ON ARRIVAL: TEMP 36.4 = 97.6, BP 197/105, HR 90, RR 20, O2 SAT 99% ON ROOM AIR BP DOWN TO 120'S SYSTOLIC WITH THE ABOVE MEDICATIONS, AND PT'S PAIN IS COMPLETELY GONE, ARE ALL OTHER ASSOCIATED SYMPTOMS. PT'S SYMPTOMS AND EKG ARE SUGGESTIVE OF UNSTABLE ANGINA, IN ADDITION TO HTN VITALS AT TIME OF ADMIT: BP 117/69, HR 68, RR MID 20'S, O2 SAT 95% ON ROOM AIR NO DETERIORATION IN PT'S CONDITION DURING ER STAY DISCUSSED TEST RESULTS, NEED FOR ADMIT AND PT AGREES REVIEWED PRIOR RECORDS, INCLUDING ER VISITS, ADMITS/H&P'S/CONSULTS/DISCHARGE SUMMARIES, TESTS/PROCEDURES Initial ECG Impression Date: November 01, 2022 Initial ECG Impression Time: 00:50 Initial ECG Rate: 91 Initial ECG Rhythm: Normal Sinus Initial ECG Intervals NC 199 QRS 114 QT/QTC 360/409 Initial ECG Impression: Nonspecific Changes (IVCD, ST DEPERSSION ANTERIO R/LATERALLY, ANS SLIGHT ST DEPRESSION INFERIORLY) Initial ECG Comparisson: Changed (SLIGHT CHANGE FROM PREVIOUS--WITH ST DEPRESSION) Comment INTERPRETED BY ME Diagnostic Imaging Comments CXR--PENDING RADIOLOGIST REVIEW -NO ACUTE PROCESS Reviewed: Reviewed by Me Departure Communication (Admissions) 0124--SPOKE WITH DR. NEFF, STRUCTURES TECHNICIAN, RECOMMENDATIONS NOTED. 0125--SPOKE WITH DR. KOLB, HOSPITALIST, ACCEPTS PT FOR ADMIT. Impression Primary Impression: Unstable angina Additional Impressions: HTN (hypertension) HX OF CAD WITH STENTS HX OF PVD WITH STENTS Disposition: ADMITTED INPATIENT Condition: Improved Admissions Decision to Admit Reason: Admit from ER (General) Decision to Admit/Date: November 01, 2022 Time/Decision to Admit Time: 01:25 Departure-Patient Inst. Referrals: TRINA RUIZ (PCP/Family) Primary Care Physician MARY BOOTH DO November 01, 2022 01:05
[2022-11-01 01:06] LABS: GLUCOSE 118 MG/DL (70-105); TOTAL PROTEIN 6.9 GM/DL (6.4-8.2)
[2022-11-01 01:07] LABS: CARBON DIOXIDE 22 MMOL/L (21-32)
[2022-11-01 01:08] LABS: BILIRUBIN,TOTAL 0.5 MG/DL (0.1-1.0)
[2022-11-01 01:09] LABS: ALKALINE PHOSPHATASE 72 U/L (40-136)
[2022-11-01 01:10] LABS: CREATININE SERUM 1.48 MG/DL (0.60-1.30); GFR ESTIMATED 49
[2022-11-01 01:11] LABS: BUN/CREATININE RATIO 11
[2022-11-01 01:12] LABS: MAGNESIUM 1.3 MG/DL (1.6-2.4)
[2022-11-01 01:13] LABS: ALANINE AMINOTRANSFERASE 26 U/L (0-55)
[2022-11-01 01:14] LABS: CREATINE KINASE 106 U/L (30-200); LIPASE 60 U/L (8-78)
[2022-11-01 01:21] LABS: CREATINE KINASE MB 3.7 NG/ML (<6.6)
[2022-11-01 01:22] LABS: INR 0.9 (0.8-1.4); PROTHROMBIN TIME PATIENT 12.5 SEC (12.2-14.7)
[2022-11-01] MEDS ORDERED: ENOXAPARIN 80 MG/0.8 ML (LOVENOX) SYR SC ONE (01:30)
[2022-11-01] MEDS ORDERED: ONDANSETRON 4 MG/2 ML (SDV) Z0FRAN IVP PRN (03:00)
[2022-11-01] MEDS ORDERED: morphine INJ 4 MG/ML 1 ML (VIAL/SYRINGE) IV PRN (03:00)
--- NOTE | 2022-11-01 05:55 | History & Physical ---
History of Present Illness HPI/Chief Complaint Chief complaint: Unstable angina HPI: This is a 77-year-old male clinic patient of Mikal Banegas who has a past medical history of heart disease who presented to the ER with chest pain indicative of unstable angina. Patient was placed on protocol meds. He underwent cardiac catheterization with intervention. Daughter at the bedside. Source: patient, family Exam Limitations: no limitations Date Seen 11/01/22 Time Seen by a Provider: 08:30 Attending Physician Jong Banegas PCP Admitting Physician: Marilynn Kolb DO Attending Physician: Marilynn Kolb DO Referring Physician Date of Admission November 01, 2022 at 02:30 Home Medications & Allergies Home Medications Reviewed patient Home Medication Reconciliation performed by pharmacy medication reconciliations commercial kitchen service technician and/or nursing. Patients Allergies have been reviewed. Allergies Allergies Coded Allergies clopidogrel (Verified Allergy, Unknown, 01/02/07) Past Bilsksb-Cuucmg-Sczepk Hx Past Med/Social Hx: Reviewed Nursing Past Med/Soc Hx, Reviewed and Corrections made Patient Social History Marrital Status: single Employed/Student: retired Alcohol Use: Occasionally Uses Alcohol Beverage of Choice: Beer Smoking Status: Former Smoker Type Used: Cigarettes Recent Hopitalizations: No Seasonal Allergies Seasonal Allergies: No Past Medical History Surgeries: Cardiac, Coronary Stent, Joint Replacement, Orthopedic Currently Using CPAP: No Cardiac: Coronary Artery Disease, Heart Attack, High Cholesterol, Hypertension, Peripheral Vascular Reproductive: No Gastrointestinal: Gastroesophageal Reflux Musculoskeletal: Arthritis, Chronic Back Pain History of Blood Disorders: No Adverse Reaction to Blood Edwards: No Family History No Pertinent Family Hx SOCIAL HISTORY: -SMOKED 1 PPD, QUIT AROUND 2019 -DENIES ETOH USE -DENIES DRUG USE ADDITIONAL PAST MEDICAL, SURGICAL AND PROCEDURAL HISTORY: Coronary artery disease - Card cath February [address] Kang with balloon angioplasty for in-stent restenosis within the proximal to mid LAD MultiLink vision 3.023 mm stent and successful stenting of the mid LAD with Promus 3.0 x 12 mm stent. - Stress test July 2019: no ischemia or infarction - Last card cath after myocardial infarction in January 2021 after knee surgery: cor intervention at [facility] by Dr. Coronado, details unknown History of diastolic congestive heart failure - last echocardiogram of Jul 2019: EF 55-65 percent, aortic valve sclerosis, PA 30 mmHg. Hypertension CKD 2-3 H/o hyperlipidemia Peripheral vascular disease -History of iliac stenting, using 760 SMART stent in the right iliac artery, done in 2007, asymptomatic, -Angiogram was done on February 19, 2019 showing the previously placed iliac stents were patent with mild to moderate disease slightly more pronounced on the right, nonobstructive disease with pressure gradient of 20 mmHg, heavily calcified left SFA with moderate disease nonobstructive disease down to the trifurcation, heavily calcified right SFA with moderate disease in the midportion with good flow down to the trifurcation, diffuse atherosclerotic plaques in the abdominal aorta with no dissection or aneurysm noted. - ROSALIND was done in October 2020 and they were mildly abnormal bilaterally; ROSALIND 0.71 on the right with TBI 0.55; on the left side ROSALIND was 0.81 and TBI 0.43 Chronic back pain L4-L5 discectomy and fusion, extensive surgery done in [facility] by Dr. Mahan Mild bilateral nonobstructive carotid artery stenosis, last ultrasound was done in October 2020 Tobaccoism, has stopped smoking in 2019 DJD - Status post left knee replacement surgery done in January 2021 CARDIAC CATH 06/29/[address] NEFF: CONCLUSION: 1. 70% calcified ostial left main coronary artery stenosis 2. 95% stenosis in the mid LAD within old stent, successful balloon angioplasty with excellent results, mild stenosis in the distal LAD 3. Moderate stenosis in the mid circumflex artery and mild to moderate disease in the mid right coronary artery DISCUSSION AND RECOMMENDATION: Continue on aspirin and Effient. I am planning to refer the patient for evaluation for possible high risk left main coronary intervention versus stenting Review of Systems Constitutional: see HPI, weakness EENTM: no symptoms reported Respiratory: dyspnea on exertion Cardiovascular: chest pain Gastrointestinal: no symptoms reported Genitourinary: no symptoms reported Musculoskeletal: no symptoms reported Skin: no symptoms reported Psychiatric/Neurological: No Symptoms Reported All Other Systems Reviewed Negative Unless Noted: Yes Physical Exam Physical Exam Vital Signs Vital Signs - First Documented 11/01/22 00:46 Temp 36.4 Pulse 90 Resp 20 B/P (MAP) 197/105 (135) Pulse Ox 99 O2 Delivery Room Air Capillary Refill : Height, Weight, BMI Height: 5'5.00" Weight: 180lbs. 0.0oz. 81.109526ll; 30.11 BMI Method: General Appearance: No Apparent Distress, WD/WN, Chronically ill, Other (LAUGHING, AND JOKING; DOES NOT APPEAR ILL OR TO BE IN ANY DISCOMFORT OR DISTRESS) HEENT: PERRL/EOMI, Normal ENT Inspection, Pharynx Normal, Other (EDENTULOUS) Neck: Full Range of Motion, Normal Inspection, Non Tender, Supple; No JVD Respiratory: Chest Non Tender, Normal Breath Sounds, No Accessory Muscle Use, No Respiratory Distress Cardiovascular: Regular Rate, Rhythm, No Edema, No JVD, No Murmur, Normal Peripheral Pulses Gastrointestinal: Normal Bowel Sounds, No Pulsatile Mass, Non Tender, Soft Extremity: Normal Capillary Refill, Normal Inspection, Normal Range of Motion, Non Tender, No Calf Tenderness, No Pedal Edema Neurologic/Psychiatric: Alert, Oriented x3, No Motor/Sensory Deficits, Normal Mood/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 Assessment/Plan Admission Diagnosis Assessment: Unstable angina, CAD with previous stenting, HTN, history of hyperlipidemia Plan: Cardiac cath protocol Admission Status: Inpatient Order (span 2 midnights) Reason for Inpatient Admission: Unstable angina MARILYNN KOLB DO November 01, 2022 05:55
--- NOTE | 2022-11-01 06:24 | Diagnostic Imaging Report ---
INDICATION: Chest pain. COMPARISON: 06/29/2021. FINDINGS: Lungs clear. No failure, effusion or pneumothorax. IMPRESSION: No acute appearing abnormality. Dictated by: Dictated on workstation # [id number]
[2022-11-01] MEDS: CATHETER FLUSH 10 ML SYR IVP SCH ×3 (06:30→22:00)
[2022-11-01] MEDS ORDERED: HEParin 1000 UNIT/ML (10ML VIAL) FOR BOLUS ONE (06:57)
[2022-11-01] MEDS ORDERED: MIDAZOLAM 5 MG/5 ML (VERSED) VIAL ONE (06:57)
[2022-11-01] MEDS ORDERED: VERAPAMIL 5 MG/2 ML (CALAN) VIAL IV ONE (06:57)
[2022-11-01] MEDS ORDERED: fentaNYL INJ 100 MCG/2 ML AMP ONE (06:57)
[2022-11-01] MEDS ORDERED: LIDOCAINE 1% INJ 20 ML VIAL ONE ×2 (06:57→07:41)
[2022-11-01] MEDS ORDERED: NITRO DRIP 25000 MCG/D5W 0 ML IV ONE (06:58)
[2022-11-01] MEDS ORDERED: HEParin (CATH LAB) 2,000 ML IV ONE (06:58)
[2022-11-01] MEDS ORDERED: NS IV 1000 ML 1,000 ML ONE (06:58)
[2022-11-01] MEDS ORDERED: NITROGLYCERIN 2% OINT 1 GM UNIT DOSE PACKET TOP SCH (07:00)
--- NOTE | 2022-11-01 07:25 | Consultation-Cardiology ---
HPI-Cardiology Cardiology Consultation Date of Consultation 11/01/22 Date of Admission Time Seen by Provider: 07:23 Indication: Non-ST elevation myocardial infarction HPI 77-year-old gentleman with extensive history of coronary artery disease, came into the emergency room yesterday with persistent chest pain, mild shortness of breath. Noted to have mild elevation in troponin which increased today. Reporting dull achiness in the retrosternal area, dyspnea on exertion. No palpitation. No syncope. Patient sustained a fall about 2 weeks ago resulted in bruising on his right arm and shoulder and reporting that he hit his head wit h the fall. Home Medications & Allergies Allergies: Coded Allergies: clopidogrel (Verified Allergy, Unknown, 01/02/07) Home Medication List Reviewed: Yes SVH-[id number]-Kvyysh Hx Patient Social History Marital Status: Employed/Student: retired Smoking Status: Former Smoker Type Used: Cigarettes Recent Hopitalizations: No Have you traveled recently?: No Alcohol Use?: Yes Past Medical History Discussed below Family Medical History Significant Family History: No Pertinent Family Hx Review of Systems-General Review of Systems Constitutional: see HPI EENTM: see HPI, no symptoms reported Respiratory: see HPI; No cough; dyspnea on exertion; No hemoptysis, No orthopnea, No phlegm; short of breath; No stridor, No wheezing, No other Cardiovascular: see HPI, chest pain; No edema, No Hx of Intervention, No palpitations, No syncope, No vascular heart diseas, No other Gastrointestinal: no symptoms reported, see HPI Genitourinary: no symptoms reported, see HPI Musculoskeletal: see HPI Skin: no symptoms reported Psychiatric/Neurological: Headache Reviewed Test Results Reviewed Test Results Lab Laboratory Tests Test 11/01/22 00:45 11/01/22 04:07 Range/Units White Blood Count 7.3 4.3-11.0 10^3/uL Red Blood Count 3.96 L 4.30-5.52 10^6/uL Hemoglobin 12.4 L 13.3-17.7 g/dL Hematocrit 36 L 40-54 % Mean Corpuscular Volume 92 80-99 fL Mean Corpuscular Hemoglobin 31 25-34 pg Mean Corpuscular Hemoglobin Concent 34 32-36 g/dL Red Cell Distribution Width 13.5 10.0-14.5 % Platelet Count 205 130-400 10^3/uL Mean Platelet Volume 9.2 9.0-12.2 fL Immature Granulocyte % (Auto) 1 % Neutrophils (%) (Auto) 41 L 42-75 % Lymphocytes (%) (Auto) 40 12-44 % Monocytes (%) (Auto) 14 H 0-12 % Eosinophils (%) (Auto) 4 0-10 % Basophils (%) (Auto) 1 0-10 % Neutrophils # (Auto) 3.0 1.8-7.8 10^3/uL Lymphocytes # (Auto) 2.9 1.0-4.0 10^3/uL Monocytes # (Auto) 1.0 0.0-1.0 10^3/uL Eosinophils # (Auto) 0.3 0.0-0.3 10^3/uL Basophils # (Auto) 0.1 0.0-0.1 10^3/uL Immature Granulocyte # (Auto) 0.0 0.0-0.1 10^3/uL Prothrombin Time 12.5 12.2-14.7 SEC INR Comment 0.9 0.8-1.4 Activated Partial Thromboplast Time 29 24-35 SEC Sodium Level 136 135-145 MMOL/L Potassium Level 4.2 3.6-5.0 MMOL/L Chloride Level 103 98-107 MMOL/L Carbon Dioxide Level 22 21-32 MMOL/L Anion Gap 11 5-14 MMOL/L Blood Urea Nitrogen 17 7-18 MG/DL Creatinine 1.48 H 0.60-1.30 MG/DL Estimat Glomerular Filtration Rate 49 BUN/Creatinine Ratio 11 Glucose Level 118 H 70-105 MG/DL Calcium Level 9.0 8.5-10.1 MG/DL Corrected Calcium 8.8 8.5-10.1 MG/DL Magnesium Level 1.3 L 1.6-2.4 MG/DL Total Bilirubin 0.5 0.1-1.0 MG/DL Aspartate Amino Transf (AST/SGOT) 37 H 5-34 U/L Alanine Aminotransferase (ALT/SGPT) 26 0-55 U/L Alkaline Phosphatase 72 40-136 U/L Total Creatine Kinase 106 30-200 U/L Creatine Kinase MB 3.7 <6.6 NG/ML Myoglobin 97.8 H 10.0-92.0 NG/ML Troponin I < 0.028 0.409 *H <0.028 NG/ML B-Type Natriuretic Peptide 64.1 <100.0 PG/ML Total Protein 6.9 6.4-8.2 GM/DL Albumin 4.2 3.2-4.5 GM/DL Amylase Level 123 25-125 U/L Lipase 60 8-78 U/L Triglycerides Level 37 <150 MG/DL Cholesterol Level 122 < 200 MG/DL LDL Cholesterol Direct 60 1-129 MG/DL VLDL Cholesterol 7 5-40 MG/DL HDL Cholesterol 49 40-60 MG/DL Physical Exam Physical Exam Vital Signs Vital Signs - First Documented 11/01/22 00:46 Temp 36.4 Pulse 90 Resp 20 B/P (MAP) 197/105 (135) Pulse Ox 99 O2 Delivery Room Air Capillary Refill : Height, Weight, BMI Height: 5'5.00" Weight: 180lbs. 0.0oz. 81.324465qt; 30.11 BMI Method: General Appearance: No Apparent Distress, WD/WN, Other (LAUGHING, AND JOKING; DOES NOT APPEAR ILL OR TO BE IN ANY DISCOMFORT OR DISTRESS) Eyes: Bilateral Eye Normal Inspection, Bilateral Eye PERRL, Bilateral Eye EOMI HEENT: PERRL/EOMI, Other (EDENTULOUS) Neck: Full Range of Motion, Normal Inspection, Non Tender, Supple; No JVD Respiratory: Chest Non Tender, Normal Breath Sounds, No Accessory Muscle Use, No Respiratory Distress Cardiovascular: Regular Rate, Rhythm, No Edema, No JVD, No Murmur, Normal Peripheral Pulses Gastrointestinal: Normal Bowel Sounds, No Pulsatile Mass, Non Tender, Soft Back: Normal Inspection, No CVA Tenderness, No Vertebral Tenderness Extremity: Normal Capillary Refill, Normal Inspection, Normal Range of Motion, Non Tender, No Calf Tenderness, No Pedal Edema Neurologic/Psychiatric: Alert, Oriented x3, No Motor/Sensory Deficits, Normal Mood/Affect, insole cementer II-XII Norm as Tested Skin: Normal Color, Warm/Dry Lymphatic: No Adenopathy A/P-Cardiology Admission Diagnosis Non-ST elevation myocardial infarction Coronary artery disease Hypertension Hyperlipidemia Assessment/Plan Non-ST elevation myocardial infarction, having active chest pain and elevation in troponin level Planning to proceed with emergency cardiac catheterization possible PTCA Coronary artery disease Cardiac catheterization February [address] Kang with balloon angioplasty for in-stent restenosis within the proximal to mid LAD. BuySimple vision 3.023 mm stent. There is successful stenting of the mid LAD following deployment of Promus 3.0 x 12 mm stent. stress test was done in July 2019 showing no ischemia or infarction, ejection fraction 66 percent, echocardiogram showed EF 55-65 percent, aortic valve sclerosis, PA 30 mmHg. Status post myocardial infarction occurred in January 2021, patient was at [facility] after knee surgery, he was transferred to [facility] and Dr. Coronado proceeded with intervention. I do not have the report. Patient had LHC on June 29, 2021 noted to have 95% stenosis in nancy mid LAD within old stent, successful balloon angioplasty with excellent results. 70% ostial left main, was referred to Dr. Coronado. LHC on Jul 22, [address] Coronado with stenting to the left main. Patient was having worsening dyspnea on last visit, underwent repeat LHC with Dr. Coronado on 02/18/22 patient had PTCA to the LAD at [facility] Planning to proceed with cardiac catheterization today History of congestive heart failure, resolved, Last echocardiogram done Feb 2022 showing normal EF 60-65%, trivial mitral stenosis, PA 20-25mmHg. Hypertension, previously was having hypotension Maintained on enalapril 10 mg daily, hydrochlorothiazide 25 mg daily isosorbide 30 mg daily, Toprol-XL 50 mg daily Continue to monitor blood pressure Hyperlipidemia, I will evaluate Lipids Peripheral vascular disease -History of iliac stenting, using 760 SMART stent in the right iliac artery done in 2007, asymptomatic, -Angiogram was done on February 19, 2019 showing the previously placed iliac stents were patent with mild to moderate disease slightly more pronounced on the right, nonobstructive disease with pressure gradient of 20 mmHg, heavily calcified left SFA with moderate disease nonobstructive disease down to the trifurcation, heavily calcified right SFA with moderate disease in the midportion with good flow down to the trifurcation, diffuse atherosclerotic plaques in the abdominal aorta with no dissection or aneurysm noted. ROSALIND was done in October 2020 and they were mildly abnormal bilaterally off 0.71 on the right with TBI 0.55. And on the left side ROSALIND was 0.81 and TBI 0.43. Continue to monitor L4-L5 discectomy and fusion, extensive surgery done in [facility] with Dr. Mahan, still having pain, recovering slowly. Mild bilateral nonobstructive carotid artery stenosis, last ultrasound was done in October 2021, continue to monitor Tobaccoism, has stopped smoking in 2019, encouraged to continue with smoking cessation Status post left knee replacement surgery done in January 2021. Using a walker NESTOR NEFF MD November 01, 2022 07:25
--- NOTE | 2022-11-01 07:26 | Cardiac Procedure Note-CS/ASA ---
Pre-Procedure Note Pre-Op Procedure Note Date of Available H&P: November 01, 2022 Date H&P Reviewed: November 01, 2022 Time H&P Reviewed: 07:26 History & Physical: H&P Reviewed, Patient Examed, No changes noted Pre-Operative Diagnosis: Coronary artery disease Moderate Sedation PreProcedure Time 07: ASA Score 3 Airway Lungs Heart ASA score ASA 1: a normal healthy patient ASA 2: a patient with a mild systemic disease (mid diabetes, controlled hypertension, obesity ASA 3: a patient with a severe systemic disease that limits activity (angina, COPD, prior Myocardial infarction) ASA 4: a patient with an incapacitating disease that is a constant threat to life (CHF, renal failure) ASA 5: a moribund patient not expected to survive 24 hrs. (ruptured aneurysm) ASA 6: a declared brain- patient whose organs are being harvested. For emergent operations, add the letter E after the classification Mallampati Classification Grade 3 Sedation Plan Analgesia, Amnesia, Plan communicated to team members, Discussed options with patient/fam, Discussed risks with patient/fam The patient is an appropriate candidate to undergo the planned procedure, sedation, and anesthesia. The patient immediately re-assessed prior to indication. NESTOR NEFF MD November 01, 2022 07:26
[2022-11-01] MEDS ORDERED: PATIENT MAY USE OWN MEDS, ALL PO SCH (08:15)
[2022-11-01] MEDS ORDERED: ASPIRIN 325 MG (5 GR) TABLET ONE (08:18)
[2022-11-01] MEDS ORDERED: PRASUGREL 10 MG (EFFIENT) TABLET ONE (08:18)
--- NOTE | 2022-11-01 08:23 | Cardiac Cath Report ---
Cardiac Cath Report Physician (s)/Debit Agent (s) Physician NESTOR NEFF MD Pre-Procedure Diagnosis Pre-Procedure Diagnosis: Coronary artery disease Post-Procedure Note Procedure Start Date: November 01, 2022 Name of Procedure: Left heart catheterization Stenting to the LAD Findings/Procedure Note PROCEDURE NOTE: 77-year-old gentleman admitted with non-ST elevation myocardial infarction, emergency cardiac catheterization was advised. After explaining the procedure to the patient, all pros and cons were explained, all questions were answered. The patient signed the consent and then he was placed in the cardiac catheterization laboratory. Groin was prepped in SL fashion local anesthesia was used. I had difficulty accessing the right femoral artery, sheath placed in the left femoral artery. Praaksh' right and left catheter were used to access the coronary system. Prakash right was prolapsed to the left ventricular cavity, pressure was measured pullback LV to aorta was done. Exchange Storq wire was used due to the heavy calcification and stenting of the left iliac artery. Patient has 99% stenosis in the proximal LAD. With HARSHAD II flow EBU 3.5 guide was used, 5000 units of heparin were given, BMW wire was advanced to the distal LAD, predilatation with 2.75 x 20 balloon then I proceeded with deployment of 3 x 18 mm jose e point stent expanded to 3.1 mm under 16 elmer. 0% residual stenosis with HARSHAD-3 flow. At the end of the procedure the sheath was removed. Closure device was deployed FINDINGS: Hemodynamics LV 104/21, end-diastolic pressure of 21 Aorta 106/54 mean of 75 ANATOMY: Left Main has a patent stent with no obstructive disease Left Anterior Descending has 99% stenosis within the stent and proximal to the stent in the LAD, successful balloon angioplasty and stenting using 3 x 18 mm jose e point stent expanded to 3.1 mm with no residual stenosis Left Circumflex is moderate in size with no obstructive disease Right Coronary Artery is dominant artery with no obstructive disease LV Gram was not done, pressure was measured PERCUTANEOUS INTERVENTION: Pre stenosis 99% Post Stenosis 0% Pre HARSHAD flow 2 Post HARSHAD flow 3 Dominance right coronary artery CONCLUSION: 99% stenosis in the proximal LAD within the stent and proximal to the stent, successful balloon angioplasty with deployment of overlapping stent Skypoint 3 x 18 mm expanded to 3.1 under 16 elmer. Otherwise no obstructive disease in the rest of the coronary system Mildly elevated left ventricular end-diastolic pressure Extensive peripheral arterial disease, very diminished pulse in the right femor al artery, unable to access the right coronary artery. Stent is patent in the left iliac artery DISCUSSION AND RECOMMENDATION: Patient was loaded with aspirin and Effient. We will restart home medication Anesthesia Type: Conscious Sedation Estimated blood loss (mL): 25 ml Contrast Amount: 70 ml Post-Procedure Diagnosis Post-operative diagnosis: Non-ST elevation myocardial infarction Coronary artery disease Hypertension Hyperlipidemia NESTOR NEFF MD November 01, 2022 08:23
[2022-11-01] MEDS: ASPIRIN E.C. 81 MG (ECOTRIN) TAB PO SCH ×2 (09:10→09:11)
[2022-11-01] MEDS: NS IV 1000 ML 1,000 ML IV SCH ×5 (09:11→21:30)
[2022-11-01] MEDS: PRASUGREL 10 MG (EFFIENT) TABLET PO SCH (09:12)
[2022-11-01] MEDS: ENALAPRIL 10 MG (VASOTEC) TAB PO SCH ×2 (09:44→20:09)
[2022-11-01] MEDS: ISOSORBIDE MONONITRATE 30 MG (IMDUR) TAB PO SCH (09:44)
[2022-11-01] MEDS: meTOproloL SUCCINATE 50 MG (TOPROL XL) TAB PO SCH (09:44)
[2022-11-01] MEDS ORDERED: MELO7.5T46 PO (10:41)
[2022-11-01] MEDS ORDERED: MULT-1136 PO (10:41)
[2022-11-02 06:55] LABS: HEMATOCRIT 33 % (40-54); HEMOGLOBIN 11.1 g/dL (13.3-17.7); MEAN CORPUSCULAR HEMOGLOBIN 31 pg (25-34); MEAN CORPUSCULAR HGB CONC 34 g/dL (32-36); MEAN CORPUSCULAR VOLUME 92 fL (80-99); MEAN PLATELET VOLUME 9.7 fL (9.0-12.2); PLATELET COUNT 173 10^3/uL (130-400); WHITE BLOOD COUNT 7.7 10^3/uL (4.3-11.0)
[2022-11-02 07:14] LABS: CALCIUM 8.5 MG/DL (8.5-10.1); CREATININE SERUM 1.21 MG/DL (0.60-1.30)
--- NOTE | 2022-11-02 07:38 | Discharge Inst-Post CATH ---
Discharge Inst-CATH/EP Problems Reviewed?: Yes Post Cardiac Cath/EP D/C Inst Follow Up/Plan Appointment with Dr. Mendez's office in 2 weeks <b>CARDIAC CATH/EP PROCEDURE DISCHARGE INSTRUCTIONS</b> ACTIVITY * Go Home directly and rest. * Limit activity of the leg (or wrist if it was used) for 7 days including aerobics, swimming, jogging, bicycling, etc. * Restrict stair-climbing for 7 days if possible, if not, climb up with your non-cath leg, then bring together on the same step. * Avoid lifting, pushing, pulling or excessive movement of the affected extremity for 7 days. * Customary sexual activity may be resumed after 2 days-use caution not to use a position that strains or causes pain to the affected extremity. * No driving for 24 hours. * NO SMOKING. * Avoid straining for bowel movements for 7 days. * Gentle walking on level ground is allowed. * Returning to work will depend on the type of procedure and the results. Your doctor will discuss this with you. CALL YOUR DOCTOR FOR ANY OF THE FOLLOWING: *If bleeding from the puncture site occurs- Apply gentle pressure to site with clean cloth and call your doctor or EMS. * If a knot or lump forms under the skin, increases in size, or causes pain. * If bruising appears to be worsening or moving further down your leg instead of disappearing. * Temperature above 101 F. CARE OF YOUR GROIN INCISION; * Bruising or purple discoloration of the skin near the puncture site is common. * You may shower only, no bathtub bathing for 5 days. Be careful to avoid slipping as your leg may feel stiff. * If a closure device was used on your femoral artery, please see the attached guide regarding care of the device and your leg. * Leave dressing on FOR 24 hours. CARE OF YOUR WRIST INCISION; * Bruising or purple discoloration of the skin near the puncture site is common. * You may shower. * DO NOT submerge wrist. * Leave dressing on FOR 24 hours. NESTOR MENDEZ MD November 02, 2022 07:38
[2022-11-02 08:00] VITALS: BP 151/71
--- NOTE | 2022-11-02 08:11 | Cardiology Progress Note ---
Subjective Date Seen by Provider: November 02, 2022 Time Seen by Provider: 08:09 Subjective/Events-last exam Patient was seen at bedside, laying down comfortably. Feeling better Still having some shortness of breath Review of Systems General: No Chills, No Night Sweats, No Fatigue, No Malaise, No Appetite, No Other HEENT: No Head Aches, No Visual Changes, No Eye Pain, No Ear Pain, No Dysphasia, No Sinus Congestion, No Post Nasal Drip, No Sore Throat, No Other Pulmonary: Dyspnea; No Cough, No Pleuritic Chest Pain, No Other Cardiovascular: No: Chest Pain, Palpitations, Orthopnea, Paroxysmal Noc. Dyspnea, Edema, Lt Headedness, Other Objective-Cardiology Exam Last Set of Vital Signs Vital Signs 11/01/22 11/02/22 11/02/22 20:00 04:00 07:59 Temp 36.4 Pulse 61 Resp 28 B/P (MAP) 117/73 (88) O2 Delivery Room Air I&O Intake and Output 11/02/22 00:00 Intake Total 1800 ml Output Total 1800 ml Balance 0 ml Intake Oral 800 ml IV Total 1000 ml Output Urine Total 1800 ml Daily Weight Change No General: Alert, Oriented X3, Cooperative HEENT: Atraumatic, PERRLA Neck: Supple, No JVD, No Thyromegaly Lungs: Clear to Auscultation, Normal Air Movement Heart: Regular Rate, Normal S1, Normal S2, No Murmurs Abdomen: Normal Bowel Sounds, Soft, No Tenderness, No Hepatosplenomegaly, No Masses Extremities: No Clubbing, No Cyanosis, No Edema, Normal Pulses, No Tenderness/Swelling Skin: No Rashes, No Breakdown, No Significant Lesion Neuro: Normal Gait, Normal Speech, Strength at 5/5 X4 Ext, Normal Tone, Sensation Intact Psych/Mental Status: Mental Status NL, Mood NL Results Lab Laboratory Tests 11/02/22 05:04 A/P-Cardiology Admission Diagnosis Non-ST elevation myocardial infarction Coronary artery disease Hypertension Hyperlipidemia Assessment/Plan Non-ST elevation myocardial infarction, having active chest pain and elevation in troponin level Status postcardiac catheterization and stenting to the LAD Coronary artery disease Cardiac catheterization February [address] Kang with balloon angioplasty for in-stent restenosis within the proximal to mid LAD. WinView vision 3.023 mm stent. There is successful stenting of the mid LAD following deployment of Promus 3.0 x 12 mm stent. stress test was done in July 2019 showing no ischemia or infarction, ejection fraction 66 percent, echocardiogram showed EF 55-65 percent, aortic valve sclerosis, PA 30 mmHg. Status post myocardial infarction occurred in January 2021, patient was at [facility] after knee surgery, he was transferred to [facility] and Dr. Coronado proceeded with intervention. I do not have the report. Patient had LHC on June 29, 2021 noted to have 95% stenosis in nancy mid LAD within old stent, successful balloon angioplasty with excellent results. 70% ostial left main, was referred to Dr. Coronado. LHC on Jul 22, [address] Coronado with stenting to the left main. Patient was having worsening dyspnea on last visit, underwent repeat LHC with Dr. Coronado on 02/18/22 patient had PTCA to the LAD at [facility] Cardiac catheterization was done on November 01, 2022 with balloon angioplasty for severe in-stent restenosis in the LAD and deployment of a new stent in the LAD with no residual stenosis. The right coronary artery is occluded. The vein graft to the right is occluded, the CHOWDHURY to LAD is patent Continue with aspirin and Effient History of congestive heart failure, resolved, Last echocardiogram done Feb 2022 showing normal EF 60-65%, trivial mitral stenosis, PA 20-25mmHg. Hypertension, previously was having hypotension Maintained on enalapril 10 mg daily, hydrochlorothiazide 25 mg daily isosorbide 30 mg daily, Toprol-XL 50 mg daily Continue to monitor blood pressure Hyperlipidemia, monitor lipids Peripheral vascular disease -History of iliac stenting, using 760 SMART stent in the right iliac artery done in 2007, asymptomatic, -Angiogram was done on February 19, 2019 showing the previously placed iliac stents were patent with mild to moderate disease slightly more pronounced on the right, nonobstructive disease with pressure gradient of 20 mmHg, heavily calcified left SFA with moderate disease nonobstructive disease down to the trifurcation, heavily calcified right SFA with moderate disease in the midportion with good flow down to the trifurcation, diffuse atherosclerotic plaques in the abdominal aorta with no dissection or aneurysm noted. ROSALIND was done in October 2020 and they were mildly abnormal bilaterally off 0.71 on the right with TBI 0.55. And on the left side ROSALIND was 0.81 and TBI 0.43. Continue to monitor L4-L5 discectomy and fusion, extensive surgery done in [facility] with Dr. Mahan, still having pain, recovering slowly. Mild bilateral nonobstructive carotid artery stenosis, last ultrasound was done in October 2021, continue to monitor Tobaccoism, has stopped smoking in 2019, encouraged to continue with smoking cessation Status post left knee replacement surgery done in January 2021. Using a walker NESTOR NEFF MD November 02, 2022 08:11
[2022-11-02] MEDS: ISOSORBIDE MONONITRATE 30 MG (IMDUR) TAB PO SCH (09:00)
[2022-11-02] MEDS: meTOproloL SUCCINATE 50 MG (TOPROL XL) TAB PO SCH (09:00)
[2022-11-02] MEDS ORDERED: FUROSEMIDE 40 MG/4 ML INJ (LASIX) IVP SCH (09:00)
[2022-11-02] MEDS: ENALAPRIL 10 MG (VASOTEC) TAB PO SCH (09:00)
[2022-11-02] MEDS: ASPIRIN E.C. 81 MG (ECOTRIN) TAB PO SCH ×2 (09:00)
[2022-11-02] MEDS: PRASUGREL 10 MG (EFFIENT) TABLET PO SCH (09:00)
--- NOTE | 2022-11-02 10:21 | Discharge Summary ---
Diagnosis/Chief Complaint Date of Admission November 01, 2022 at 02:30 Date of Discharge Discharge Date: November 02, 2022 Discharge Diagnosis Assessment: Unstable angina requiring cardiac catheterization with intervention, CAD with previous stenting, HTN, history of hyperlipidemia Discharge Summary Discharge Physical Examination Allergies: Coded Allergies: clopidogrel (Verified Allergy, Unknown, 01/02/07) Vitals & I&Os Vital Signs Date Time Temp Pulse Resp B/P (MAP) Pulse Ox O2 Delivery O2 Flow Rate FiO2 11/02/22 08:00 75 14 151/71 (97) 94 Room Air 11/02/22 07:59 36.4 General Appearance: Alert, Oriented X3, Cooperative Respiratory: Clear to Auscultation Cardiovascular: Regular Rate Psych/Mental Status: Mental Status NL Hospital Course Was the Problem List Reviewed?: Yes Hospital course: Patient had a short hospital course he was admitted for unstable angina with history of CAD and previous stents. Patient underwent cardiac catheterization with intervention uncomplicated. Patient was deemed stable for discharge and he was discharged in improved condition. Labs (last 24 hrs) Laboratory Tests 11/01/22 00:45: White Blood Count 7.3, Red Blood Count 3.96L, Hemoglobin 12.4L, Hematocrit 36L, Mean Corpuscular Volume 92, Mean Corpuscular Hemoglobin 31, Mean Corpuscular Hemoglobin Concent 34, Red Cell Distribution Width 13.5, Platelet Count 205, Mean Platelet Volume 9.2, Immature Granulocyte % (Auto) 1, Neutrophils (%) (Auto) 41L, Lymphocytes (%) (Auto) 40, Monocytes (%) (Auto) 14H, Eosinophils (%) (Auto) 4, Basophils (%) (Auto) 1, Neutrophils # (Auto) 3.0, Lymphocytes # (Auto) 2.9, Monocytes # (Auto) 1.0, Eosinophils # (Auto) 0.3, Basophils # (Auto) 0.1, Immature Granulocyte # (Auto) 0.0, Prothrombin Time 12.5, INR Comment 0.9, Activated Partial Thromboplast Time 29, Sodium Level 136, Potassium Level 4.2, Chloride Level 103, Carbon Dioxide Level 22, Anion Gap 11, Blood Urea Nitrogen 17, Creatinine 1.48H, Estimat Glomerular Filtration Rate 49, BUN/Creatinine Ratio 11, Glucose Level 118H, Calcium Level 9.0, Corrected Calcium 8.8, Magnesiu m Level 1.3L, Total Bilirubin 0.5, Aspartate Amino Transf (AST/SGOT) 37H, Alanine Aminotransferase (ALT/SGPT) 26, Alkaline Phosphatase 72, Total Creatine Kinase 106, Creatine Kinase MB 3.7, Myoglobin 97.8H, Troponin I < 0.028, B-Type Natriuretic Peptide 64.1, Total Protein 6.9, Albumin 4.2, Amylase Level 123, Lipase 60 11/01/22 04:07: Troponin I 0.409*H, Triglycerides Level 37, Cholesterol Level 122, LDL Cholesterol Direct 60, VLDL Cholesterol 7, HDL Cholesterol 49 11/02/22 05:04: White Blood Count 7.7, Red Blood Count 3.58L, Hemoglobin 11.1L, Hematocrit 33L, Mean Corpuscular Volume 92, Mean Corpuscular Hemoglobin 31, Mean Corpuscular Hemoglobin Concent 34, Red Cell Distribution Width 13.5, Platelet Count 173, Mean Platelet Volume 9.7, Sodium Level 136, Potassium Level 4.0, Chloride Level 108H, Carbon Dioxide Level 20L, Anion Gap 8, Blood Urea Nitrogen 13, Creatinine 1.21, Estimat Glomerular Filtration Rate 62, BUN/Creatinine Ratio 11, Glucose Level 89, Calcium Level 8.5 Pending Labs Laboratory Tests 11/01/22 00:45: White Blood Count 7.3, Red Blood Count 3.96, Hemoglobin 12.4, Hematocrit 36, Mean Corpuscular Volume 92, Mean Corpuscular Hemoglobin 31, Mean Corpuscular Hemoglobin Concent 34, Red Cell Distribution Width 13.5, Platelet Count 205, Mean Platelet Volume 9.2, Immature Granulocyte % (Auto) 1, Neutrophils (%) (Auto) 41, Lymphocytes (%) (Auto) 40, Monocytes (%) (Auto) 14, Eosinophils (%) (Auto) 4, Basophils (%) (Auto) 1, Neutrophils # (Auto) 3.0, Lymphocytes # (Auto) 2.9, Monocytes # (Auto) 1.0, Eosinophils # (Auto) 0.3, Basophils # (Auto) 0.1, Immature Granulocyte # (Auto) 0.0, Prothrombin Time 12.5, INR Comment 0.9, Activated Partial Thromboplast Time 29, Sodium Level 136, Potassium Level 4.2, Chloride Level 103, Carbon Dioxide Level 22, Anion Gap 11, Blood Urea Nitrogen 17, Creatinine 1.48, Estimat Glomerular Filtration Rate 49, BUN/Creatinine Ratio 11, Glucose Level 118, Calcium Level 9.0, Corrected Calcium 8.8, Magnesium Level 1.3, Total Bilirubin 0.5, Aspartate Amino Transf (AST/SGOT) 37, Alanine Aminotransferase (ALT/SGPT) 26, Alkaline Phosphatase 72, Total Creatine Kinase 106, Creatine Kinase MB 3.7, Myoglobin 97.8, Troponin I < 0.028, B-Type Natriuretic Peptide 64.1, Total Protein 6.9, Albumin 4.2, Amylase Level 123, Lipase 60 11/01/22 04:07: Troponin I 0.409, Triglycerides Level 37, Cholesterol Level 122, LDL Cholesterol Direct 60, VLDL Cholesterol 7, HDL Cholesterol 49 11/02/22 05:04: White Blood Count 7.7, Red Blood Count 3.58, Hemoglobin 11.1, Hematocrit 33, Mean Corpuscular Volume 92, Mean Corpuscular Hemoglobin 31, Mean Corpuscular Hemoglobin Concent 34, Red Cell Distribution Width 13.5, Platelet Count 173, Mean Platelet Volume 9.7, Sodium Level 136, Potassium Level 4.0, Chloride Level 108, Carbon Dioxide Level 20, Anion Gap 8, Blood Urea Nitrogen 13, Creatinine 1.21, Estimat Glomerular Filtration Rate 62, BUN/Creatinine Ratio 11, Glucose Level 89, Calcium Level 8.5 Discharge Home Medications: Active Scripts Active Reported Multivitamin 1 Each Tablet 1 Each PO DAILY Isosorbide Mononitrate ER (Isosorbide Mononitrate) 30 Mg Tab.er.24h 30 Mg PO DAILY Omeprazole 20 Mg Capsule.dr 20 Mg PO DAILY Aspirin EC (Aspirin) 81 Mg Tablet.dr 81 Mg PO BID Prasugrel HCl 10 Mg Tablet 10 Mg PO DAILY Enalapril Maleate 10 Mg Tablet 10 Mg PO BID [place]-3 ([place]-3 Fatty Acids) 1,000 Mg Capsule 1,000 Mg PO HS Atorvastatin Calcium 80 Mg Tablet 80 Mg PO HS Metoprolol Succinate 50 Mg Tab.er.24h 50 Mg PO DAILY Instructions to patient/family Please see electronic discharge instructions given to patient. STANLEY KOLB DO November 02, 2022 10:21
== END 2022-11-02 11:11 | disposition home or self-care (01) | DRG 246 ==
LOC: EDUNIT# 00:41 → ER 00:43 → ICU 02:30
PROVIDERS: ADMIT Internal Medicine; ATTEND Internal Medicine
PROC: 027034Z Dilation of Coronary Artery, One Artery with Drug-eluting Intraluminal Device, Percutaneous Approach (ICD-10-PCS; principal; 2022-11-01)
PROC: 4A023N7 Measurement of Cardiac Sampling and Pressure, Left Heart, Percutaneous Approach (ICD-10-PCS; 2022-11-01)
PROC: B2111ZZ Fluoroscopy of Multiple Coronary Arteries using Low Osmolar Contrast (ICD-10-PCS; 2022-11-01)
DX: I25.110 Atherosclerotic heart disease of native coronary artery with unstable angina pectoris (principal); I21.4 Non-ST elevation (NSTEMI) myocardial infarction; E78.5 Hyperlipidemia, unspecified; I50.9 Heart failure, unspecified; I11.0 Hypertensive heart disease with heart failure; I73.9 Peripheral vascular disease, unspecified; Z98.1 Arthrodesis status; I65.23 Occlusion and stenosis of bilateral carotid arteries; Z87.891 Personal history of nicotine dependence; Z96.651 Presence of right artificial knee joint; I25.2 Old myocardial infarction; E78.00 Pure hypercholesterolemia, unspecified; K21.9 Gastro-esophageal reflux disease without esophagitis; M19.90 Unspecified osteoarthritis, unspecified site; G89.29 Other chronic pain; M54.9 Dorsalgia, unspecified; Z79.82 Long term (current) use of aspirin; Z79.899 Other long term (current) drug therapy; Z95.820 Peripheral vascular angioplasty status with implants and grafts
CPT/HCPCS: 36415; 71045; 80048; 80053; 80061; 82150; 82550; 82553; 83690; 83735; 83874; 83880; 84484; 85025; 85027; 85347; 85610; 85730; 93005; 93041; 93458

== ENCOUNTER 2022-11-05 12:11 | Inpatient (IN) | payer MEDICARE, OTHER ==
[~2022-11-05] VITALS: Ht 165.1 cm; Wt 76.9 kg
[~2022-11-05 12:11] MED LIST changes: +MELO7.5T46 PO; +MULT-1136 PO
--- NOTE | 2022-11-05 12:40 | ED Respiratory ---
General Chief Complaint: Respiratory Problems Stated Complaint: SOA Nursing Triage Note: PT TO RM 5 BY WC WITH COMPLAINT OF SOA AND FEELING TIRED. PT WAS IN HOSPITAL MID WEEK FOR CP AND HAD STENT PLACED. STATES HE HAD A TICK BITE ABOUT A WEEK AGO. Source: patient, family (daughter) Exam Limitations: no limitations History of Present Illness Date Seen by Provider: November 05, 2022 Time Seen by Provider: 12:27 Initial Comments Patient is a 77-year-old male who presents to the emergency room with a chief complaint of feeling short of breath since 7 AM when he woke up this morning. Patient was recently in the hospital this last week discharged on after NSTEMI. He had angioplasty and stent placement. He states he is compliant with his daily medications. He has not skipped or missed any doses. He adamantly de nies any chest pain, pressure, heaviness, tightness or squeezing. No lower extremity edema. He is not coughing. He denies fevers or chills. Patient does state that he had a tick bite on Sunday the . It may have been on him over 24 hours. It was removed by his daughter. He denies any rashes, joint pain or swelling. No nausea or vomiting. No problems with bowel or bladder. Timing/Duration: this morning (0700) Prior Episodes/Possible Cause: occasional episodes Associated Symptoms: No chest pain/soreness, No cough, No muscle aches, No nasal congestion; shortness of breath Allergies and Home Medications Allergies Coded Allergies: clopidogrel (Verified Allergy, Unknown, 01/02/07) Patient Home Medication List Home Medication List Reviewed: Yes Aspirin (Aspirin EC) 81 Mg Tablet.dr, 81 MG PO BID, (Reported) Entered as Reported by: MIKAYLA SMITH on 06/26/21 1445 Atorvastatin Calcium (Atorvastatin Calcium) 80 Mg Tablet, 80 MG PO HS, (Reported) Entered as Reported by: ARIANNA TOMAS on 02/19/19 0804 Enalapril Maleate (Enalapril Maleate) 10 Mg Tablet, 10 MG PO BID, (Reported) Entered as Reported by: YUMIKO RAY on 08/21/19 1356 Isosorbide Mononitrate (Isosorbide Mononitrate ER) 30 Mg Tab.er.24h, 30 MG PO DAILY, (Reported) Entered as Reported by: MIESHA HERNANDEZ on 06/29/21 1112 Metoprolol Succinate (Metoprolol Succinate) 50 Mg Tab.er.24h, 50 MG PO DAILY, (Reported) Entered as Reported by: ARIANNA TOMAS on 02/19/19 0804 Multivitamin (Multivitamin) 1 Each Tablet, 1 EACH PO DAILY, (Reported) Entered as Reported by: ARIANNA TOMAS on 11/01/22 1041 [place]-3 Fatty Acids ([place]-3) 1,000 Mg Capsule, 1,000 MG PO HS, (Reported) Entered as Reported by: ARIANNA TOMAS on 02/19/19 0804 Omeprazole (Omeprazole) 20 Mg Capsule.dr, 20 MG PO DAILY, (Reported) Entered as Reported by: MIKAYLA SMITH on 06/26/21 1446 Prasugrel HCl (Prasugrel HCl) 10 Mg Tablet, 10 MG PO DAILY, (Reported) Entered as Reported by: MIKAYLA SMITH on 06/26/21 1443 Discontinued Medications Folic Acid (Folic Acid) 0.8 Mg Tablet, 0.8 MG PO BID, (Reported) Discontinued Reason: No Longer Taking Entered as Reported by: MIESHA HERNANDEZ on 06/29/21 1112 Hydrochlorothiazide (Hydrochlorothiazide) 25 Mg Tablet, 25 MG PO DAILY, (Reported) Discontinued Reason: No Longer Taking Entered as Reported by: YUMIKO RAY on 08/21/19 1356 Meloxicam (Meloxicam) 7.5 Mg Tablet, 7.5 MG PO DAILY, (Reported) Entered as Reported by: ARIANNA TOMAS on 11/01/22 1041 Multivit-Min/FA/Lycopen/Lutein (Centravites 50 Plus Tablet) 1 Each Tablet, 1 EACH PO DAILY, (Reported) Discontinued Reason: Prescription changed Entered as Reported by: ARIANNA TOMAS on 02/19/19 0804 Nitroglycerin (Nitroglycerin) 0.4 Mg Tab.subl, 0.4 MG SL UD PRN for CHEST PAIN, (Reported) Discontinued Reason: No Longer Taking Entered as Reported by: ARIANNA TOMAS on 02/19/19 0807 Review of Systems Review of Systems Constitutional: see HPI EENTM: no symptoms reported Respiratory: short of breath Cardiovascular: no symptoms reported Gastrointestinal: no symptoms reported Genitourinary: no symptoms reported Skin: other (tick bite to left arm 1 week ago ) Past Fwdamfm-Rpotha-Fuygsd Hx Patient Social History Tobacco Use?: No Use of E-Cig and/or Vaping dev: No Substance use?: No Alcohol Use?: Yes Alcohol Frequency: Couple times a week Pt feels they are or have been: No Immunizations Up To Date First/Initial COVID19 Vaccinat: N/A Second COVID19 Vaccination Rojelio: N/A Third COVID19 Vaccination Date: N/A Seasonal Allergies Seasonal Allergies: No Past Medical History Surgery/Hospitalization HX: BACK AND KNEE SURGERIES AT [facility] IN [place], [place] Surgeries: Yes (stents in legs; CARDIAC CATHS--PT STATES 9 STENTS TOTAL) Cardiac, Coronary Stent, Joint Replacement, Orthopedic Respiratory: No Currently Using CPAP: No Cardiac: Yes Coronary Artery Disease, Heart Attack, High Cholesterol, Hypertension, Peripheral Vascular Neurological: No Reproductive Disorders: No Genitourinary: No Gastrointestinal: Yes Gastroesophageal Reflux Musculoskeletal: Yes Arthritis, Chronic Back Pain Endocrine: No HEENT: No Cancer: No Psychosocial: No Integumentary: No Blood Disorders: No Adverse Reaction/Blood Tranf: No Family Medical History No Pertinent Family Hx SOCIAL HISTORY: -SMOKED 1 PPD, QUIT AROUND 2019 -DENIES ETOH USE -DENIES DRUG USE ADDITIONAL PAST MEDICAL, SURGICAL AND PROCEDURAL HISTORY: Coronary artery disease - Card cath February [address] Kang with balloon angioplasty for in-stent restenosis within the proximal to mid LAD MultiLink vision 3.023 mm stent and successful stenting of the mid LAD with Promus 3.0 x 12 mm stent. - Stress test July 2019: no ischemia or infarction - Last card cath after myocardial infarction in January 2021 after knee surgery: cor intervention at [facility] by Dr. Coronado, details unknown History of diastolic congestive heart failure - last echocardiogram of Jul 2019: EF 55-65 percent, aortic valve sclerosis, PA 30 mmHg. Hypertension CKD 2-3 H/o hyperlipidemia Peripheral vascular disease -History of iliac stenting, using 760 SMART stent in the right iliac artery, done in 2007, asymptomatic, -Angiogram was done on February 19, 2019 showing the previously placed iliac stents were patent with mild to moderate disease slightly more pronounced on the right, nonobstructive disease with pressure gradient of 20 mmHg, heavily calcified left SFA with moderate disease nonobstructive disease down to the trifurcation, heavily calcified right SFA with moderate disease in the midportion with good flow down to the trifurcation, diffuse atherosclerotic plaques in the abdominal aorta with no dissection or aneurysm noted. - ROSALIND was done in October 2020 and they were mildly abnormal bilaterally; ROSALIND 0.71 on the right with TBI 0.55; on the left side ROSALIND was 0.81 and TBI 0.43 Chronic back pain L4-L5 discectomy and fusion, extensive surgery done in [facility]'s by Dr. Mahan Mild bilateral nonobstructive carotid artery stenosis, last ultrasound was done in October 2020 Tobaccoism, has stopped smoking in 2019 DJD - Status post left knee replacement surgery done in January 2021 CARDIAC CATH 06/29/[address] NEFF: CONCLUSION: 1. 70% calcified ostial left main coronary artery stenosis 2. 95% stenosis in the mid LAD within old stent, successful balloon angioplasty with excellent results, mild stenosis in the distal LAD 3. Moderate stenosis in the mid circumflex artery and mild to moderate disease in the mid right coronary artery DISCUSSION AND RECOMMENDATION: Continue on aspirin and Effient. I am planning to refer the patient for evaluation for possible high risk left main coronary intervention versus stenting Physical Exam Vital Signs - First Documented 11/05/22 12:16 Temp 36.4 Pulse 80 Resp 20 B/P (MAP) 119/57 (77) Pulse Ox 96 O2 Delivery Room Air Capillary Refill : Less Than 3 Seconds Height: 5'5.00" Weight: 180lbs. 0.0oz. 81.000230sn; 29.00 BMI Method: General Appearance: WD/WN, no apparent distress Eyes: Bilateral Eye Normal Inspection, Bilateral Eye PERRL, Bilateral Eye EOMI HEENT: PERRL/EOMI Neck: full range of motion Respiratory: lungs clear, normal breath sounds, no respiratory distress, no accessory muscle use Cardiovascular: regular rate, rhythm Gastrointestinal: normal bowel sounds, non tender, soft Extremities: normal range of motion, non-tender, normal inspection, no pedal edema, normal capillary refill Neurologic/Psychiatric: alert, normal mood/affect, oriented x 3 Skin: normal color, warm/dry Progress/Results/Core Measures Suspected Sepsis SIRS Temperature: Pulse: 80 Respiratory Rate: 20 Laboratory Tests 11/05/22 12:23: White Blood Count 14.9H Blood Pressure 119 /57 Mean: 77 Laboratory Tests 11/05/22 12:23: Creatinine 1.73H, INR Comment 1.0, Platelet Count 168, Total Bilirubin 0.6 Results/Orders Lab Results Laboratory Tests Test 11/05/22 12:23 11/05/22 12:45 Range/Units White Blood Count 14.9 H 4.3-11.0 10^3/uL Red Blood Count 3.77 L 4.30-5.52 10^6/uL Hemoglobin 11.9 L 13.3-17.7 g/dL Hematocrit 34 L 40-54 % Mean Corpuscular Volume 91 80-99 fL Mean Corpuscular Hemoglobin 32 25-34 pg Mean Corpuscular Hemoglobin Concent 35 32-36 g/dL Red Cell Distribution Width 13.2 10.0-14.5 % Platelet Count 168 130-400 10^3/uL Mean Platelet Volume 9.6 9.0-12.2 fL Immature Granulocyte % (Auto) 1 % Neutrophils (%) (Auto) 87 H 42-75 % Lymphocytes (%) (Auto) 4 L 12-44 % Monocytes (%) (Auto) 8 0-12 % Eosinophils (%) (Auto) 0 0-10 % Basophils (%) (Auto) 0 0-10 % Neutrophils # (Auto) 13.0 H 1.8-7.8 10^3/uL Lymphocytes # (Auto) 0.6 L 1.0-4.0 10^3/uL Monocytes # (Auto) 1.2 H 0.0-1.0 10^3/uL Eosinophils # (Auto) 0.0 0.0-0.3 10^3/uL Basophils # (Auto) 0.0 0.0-0.1 10^3/uL Immature Granulocyte # (Auto) 0.1 0.0-0.1 10^3/uL Neutrophils % (Manual) 85 % Lymphocytes % (Manual) 5 % Monocytes % (Manual) 4 % Eosinophils % (Manual) 0 % Basophils % (Manual) 0 % Band Neutrophils 6 % Blood Morphology Comment NORMAL Prothrombin Time 13.0 12.2-14.7 SEC INR Comment 1.0 0.8-1.4 Activated Partial Thromboplast Time 28 24-35 SEC Sodium Level 132 L 135-145 MMOL/L Potassium Level 4.3 3.6-5.0 MMOL/L Chloride Level 102 98-107 MMOL/L Carbon Dioxide Level 18 L 21-32 MMOL/L Anion Gap 12 5-14 MMOL/L Blood Urea Nitrogen 23 H 7-18 MG/DL Creatinine 1.73 H 0.60-1.30 MG/DL Estimat Glomerular Filtration Rate 41 BUN/Creatinine Ratio 13 Glucose Level 99 70-105 MG/DL Calcium Level 8.8 8.5-10.1 MG/DL Corrected Calcium 8.8 8.5-10.1 MG/DL Magnesium Level 1.2 L 1.6-2.4 MG/DL Total Bilirubin 0.6 0.1-1.0 MG/DL Aspartate Amino Transf (AST/SGOT) 46 H 5-34 U/L Alanine Aminotransferase (ALT/SGPT) 28 0-55 U/L Alkaline Phosphatase 62 40-136 U/L Troponin I 0.235 H <0.028 NG/ML B-Type Natriuretic Peptide 455.6 H <100.0 PG/ML Total Protein 6.8 6.4-8.2 GM/DL Albumin 4.0 3.2-4.5 GM/DL My Orders Orders - FADI DAVILA MD Magnesium (11/05/22 12:34) Chest 1 View, Ap/Pa Only (11/05/22 12:34) Ekg Tracing (11/05/22 12:34) Comprehensive Metabolic Panel (11/05/22 12:34) Protime With Inr (11/05/22 12:34) Partial Thromboplastin Time (11/05/22 12:34) O2 (11/05/22 12:34) Monitor-Rhythm Ecg Trace Only (11/05/22 12:34) Lipid Panel (11/06/22 06:00) Ed Iv/Invasive Line Start (11/05/22 12:34) Troponin I Bradford (11/05/22 12:34) Tick Panel With Lyme Eia (11/05/22 12:34) Bnp Grady (11/05/22 12:34) Ns Iv 1000 Ml (Sodium Chloride 0.9%) (11/05/22 13:30) Doxycycline Injection (Vibramycin Inject (11/05/22 13:30) Smear For Path Review (11/05/22 12:23) Ed Admission (Communication) (11/05/22 14:01) Medications Given in ED Current Medications Medications Dose Ordered Sig/Zeenat Route Start Time Stop Time Status Last Admin Dose Admin Doxycycline Hyclate 100 mg/ Sodium Chloride 100 ml @ 100 mls/hr ONCE ONCE IV 11/05/22 13:30 11/05/22 14:29 11/05/22 13:46 100 MLS/HR Vital Signs/I&O 11/05/22 11/05/22 12:16 12:16 Temp 36.4 Pulse 80 Resp 20 B/P (MAP) 119/57 (77) Pulse Ox 96 O2 Delivery Room Air Room Air Capillary Refill : Less Than 3 Seconds Blood Pressure Mean: 77 Progress Note : Time: 13:57 Progress Note Patient seen and evaluated by me. Evaluation today includes physical exam, CBC, Chem-12, magnesium, troponin, EKG, chest x-ray, BNP, peripheral smear and tick panel. Pertinent physical exam, elderly appearing male in no acute distress. HEENT exam unremarkable. Heart is regular in the 80s. Lungs are clear. No wheezes, rhonchi. No conversational dyspnea. Abdomen is soft and nontender. No rashes. Vital signs are stable. No lower extremity edema Differential diagnosis based on history and physical exam, acute congestive failure, tickborne illness, NSTEMI, viral syndrome Labs, imaging and EKG reviewed and interpreted by me. CBC shows total white blood cell count of 14.9 with 87% segs 4% lymphs. Hemoglobin of 11.9 hematocrit of 34, platelets of 168. Serum chemistry pertinent only for a CO2 of 18, BUN of 23 creatinine up at 1.73. Sugar 99. Mag slightly low at 1.2. Troponin trending down at 0.235. BNP trending up at 455.6. Coags are within normal limits. EKG shows normal sinus rhythm with nonspecific ST-T wave changes across the precordium. Similar to prior at presentation last week. Chest x-ray is unremarkable for any obvious increased pulmonary vascular congestion. Due to the patient's creatinine having such a sharp increase the patient was treated in the emergency department with 1 L of normal saline. Case was discussed with Dr. Carter, hospitalist who recommended to go ahead and treat the patient for tickborne illness with doxycycline, IV. She discussed admission with the patient and his daughter who is at the bedside. They are agreeable. I spoke with Dr. Segura on for cardiology. He states that we should address the kidney function first and will get an echo tomorrow to further assess cardiac function. ECG Initial ECG Impression Date: November 05, 2022 Initial ECG Impression Time: 12:45 Initial ECG Rate: 72 Initial ECG Rhythm: Normal Sinus Initial ECG Intervals OK 184 QRS 110 QTc 437 Initial ECG Impression: Nonspecific Changes Diagnostic Imaging Diagonstic Imaging: Xray Plain Films/CT/US/NM/MRI: chest Comments [facility] [place], [place] NAME: ANMOL HAYNES [facility] REC#: [id number] PT STATUS: REG ER : 1945 PHYSICIAN: FADI DAVILA MD ADMIT DATE: 11/05/22/ER Draft Date of Exam:11/05/22 CHEST 1 VIEW, AP/PA ONLY EXAMINATION: Chest 1 view HISTORY: Chest pain COMPARISON: 11/01/2022 FINDINGS: The lungs are clear without edema or pneumonia. No pleural effusion or pneumothorax. Heart size is normal. IMPRESSION: 1. Clear lungs. Dictated on workstation # [id number] Dict: 11/05/22 1242 Trans: 11/05/22 1245 [facility] [id number] Interpreted by: TRACY FARR MD Electronically signed by: Departure Communication (Admissions) Time/Spoke to Admitting Phy: 13:[address] Carter - admission Time/Spoke to Consulting Phy: 13:[address] Weller, gentle fluids to treat kidney function and echo tomorrow Impression Primary Impression: Dyspnea Qualified Codes: R06.00 - Dyspnea, unspecified Additional Impression: Elevated brain natriuretic peptide (BNP) level Disposition: ADMITTED INPATIENT Condition: Stable Admissions Decision to Admit Reason: Admit from ER (General) Decision to Admit/Date: November 05, 2022 Time/Decision to Admit Time: 13:55 Departure-Patient Inst. Referrals: TRINA RUIZ (PCP/Family) Primary Care Physician FADI DAVILA MD November 05, 2022 12:40
--- NOTE | 2022-11-05 12:46 | Diagnostic Imaging Report ---
EXAMINATION: Chest 1 view HISTORY: Chest pain COMPARISON: 11/01/2022 FINDINGS: The lungs are clear without edema or pneumonia. No pleural effusion or pneumothorax. Heart size is normal. IMPRESSION: 1. Clear lungs. Dictated by: Dictated on workstation # [id number]
[2022-11-05 12:54] LABS: BASOPHILS % (AUTO) 0 % (0-10); EOSINOPHILS % (AUTO) 0 % (0-10); HEMATOCRIT 34 % (40-54); HEMOGLOBIN 11.9 g/dL (13.3-17.7); LYMPHOCYTES # (AUTO) 0.6 10^3/uL (1.0-4.0); LYMPHOCYTES % (AUTO) 4 % (12-44); MEAN CORPUSCULAR HEMOGLOBIN 32 pg (25-34); MEAN CORPUSCULAR HGB CONC 35 g/dL (32-36); MEAN CORPUSCULAR VOLUME 91 fL (80-99); MEAN PLATELET VOLUME 9.6 fL (9.0-12.2); MONOCYTES # (AUTO) 1.2 10^3/uL (0.0-1.0); MONOCYTES % (AUTO) 8 % (0-12); NEUTROPHILS % (AUTO) 87 % (42-75); PLATELET COUNT 168 10^3/uL (130-400); WHITE BLOOD COUNT 14.9 10^3/uL (4.3-11.0)
[2022-11-05 12:58] LABS: POTASSIUM 4.3 MMOL/L (3.6-5.0)
[2022-11-05 12:59] LABS: CALCIUM 8.8 MG/DL (8.5-10.1)
[2022-11-05 13:00] LABS: TOTAL PROTEIN 6.8 GM/DL (6.4-8.2)
[2022-11-05 13:02] LABS: BILIRUBIN,TOTAL 0.6 MG/DL (0.1-1.0)
[2022-11-05 13:04] LABS: CREATININE SERUM 1.73 MG/DL (0.60-1.30)
[2022-11-05 13:18] LABS: BAND NEUTROPHILS 6 %; BASOPHILS % (MANUAL) 0 %; EOSINOPHILS % (MANUAL) 0 %; LYMPHOCYTES % (MANUAL) 5 %; MONOCYTES % (MANUAL) 4 %; NEUTROPHILS % (MANUAL) 85 %; RBC MORPH NORMAL
[2022-11-05] MEDS ORDERED: DOXYCYCLINE INJECTION 100 MG in NS (IVPB) 100 ML IV ONE (13:30)
[2022-11-05] MEDS ORDERED: NS IV 1000 ML 1,000 ML IV SCH (13:30)
--- NOTE | 2022-11-05 13:34 | History & Physical ---
History of Present Illness HPI/Chief Complaint Chief complaint: Weakness with malaise and fever HPI: This is a 77-year-old male who was just discharged this past week following cardiac cath with intervention with history of interventions in the past with multiple stents who presented to the ER with fever and lethargy and noted a tick was attached so possibility of tickborne illness was a concern along with acute kidney injury with creatinine 1.7 since he refuses to drink fluid. He has been short of breath and fatigued and has not been really a whole lot since he went home from the hospital. He has had compliance with his home medication with prasugrel. Source: patient, family Exam Limitations: no limitations Date Seen 11/05/22 Time Seen by a Provider: 14:00 Attending Physician Jong Banegas PCP Admitting Physician: Attending Physician: Referring Physician Date of Admission Home Medications & Allergies Home Medications Reviewed patient Home Medication Reconciliation performed by pharmacy medication reconciliations nanoscience technician and/or nursing. Patients Allergies have been reviewed. Allergies Allergies Coded Allergies clopidogrel (Verified Allergy, Unknown, 01/02/07) Past Slvstme-Wvmync-Zvyvlk Hx Past Med/Social Hx: Reviewed Nursing Past Med/Soc Hx, Reviewed and Corrections made Patient Social History Marrital Status: single Employed/Student: retired Alcohol Use: Occasionally Uses Alcohol Beverage of Choice: Beer Smoking Status: Former Smoker Type Used: Cigarettes Recent Hopitalizations: No Seasonal Allergies Seasonal Allergies: No Past Medical History Surgeries: Cardiac, Coronary Stent, Joint Replacement, Orthopedic Currently Using CPAP: No Cardiac: Coronary Artery Disease, Heart Attack, High Cholesterol, Hypertension, Peripheral Vascular Reproductive: No Gastrointestinal: Gastroesophageal Reflux Musculoskeletal: Arthritis, Chronic Back Pain History of Blood Disorders: No Adverse Reaction to Blood Edwards: No Family History No Pertinent Family Hx SOCIAL HISTORY: -SMOKED 1 PPD, QUIT AROUND 2019 -DENIES ETOH USE -DENIES DRUG USE ADDITIONAL PAST MEDICAL, SURGICAL AND PROCEDURAL HISTORY: Coronary artery disease - Card cath February [address] Kang with balloon angioplasty for in-stent restenosis within the proximal to mid LAD MultiLink vision 3.023 mm stent and successful stenting of the mid LAD with Promus 3.0 x 12 mm stent. - Stress test July 2019: no ischemia or infarction - Last card cath after myocardial infarction in January 2021 after knee surgery: cor intervention at [facility] by Dr. Coronado, details unknown History of diastolic congestive heart failure - last echocardiogram of Jul 2019: EF 55-65 percent, aortic valve sclerosis, PA 30 mmHg. Hypertension CKD 2-3 H/o hyperlipidemia Peripheral vascular disease -History of iliac stenting, using 760 SMART stent in the right iliac artery, done in 2007, asymptomatic, -Angiogram was done on February 19, 2019 showing the previously placed iliac stents were patent with mild to moderate disease slightly more pronounced on the right, nonobstructive disease with pressure gradient of 20 mmHg, heavily calcified left SFA with moderate disease nonobstructive disease down to the trifurcation, heavily calcified right SFA with moderate disease in the midportion with good flow down to the trifurcation, diffuse atherosclerotic plaques in the abdominal aorta with no dissection or aneurysm noted. - ROSALIND was done in October 2020 and they were mildly abnormal bilaterally; ROSALIND 0.71 on the right with TBI 0.55; on the left side ROSALIND was 0.81 and TBI 0.43 Chronic back pain L4-L5 discectomy and fusion, extensive surgery done in [facility] by Dr. Mahan Mild bilateral nonobstructive carotid artery stenosis, last ultrasound was done in October 2020 Tobaccoism, has stopped smoking in 2019 DJD - Status post left knee replacement surgery done in January 2021 CARDIAC CATH 06/29/[address] NEFF: CONCLUSION: 1. 70% calcified ostial left main coronary artery stenosis 2. 95% stenosis in the mid LAD within old stent, successful balloon angioplasty with excellent results, mild stenosis in the distal LAD 3. Moderate stenosis in the mid circumflex artery and mild to moderate disease in the mid right coronary artery DISCUSSION AND RECOMMENDATION: Continue on aspirin and Effient. I am planning to refer the patient for evaluation for possible high risk left main coronary intervention versus stenting Review of Systems Constitutional: see HPI, dizziness, fever, malaise, weakness EENTM: no symptoms reported Respiratory: dyspnea on exertion, short of breath Cardiovascular: no symptoms reported Gastrointestinal: no symptoms reported Genitourinary: no symptoms reported Musculoskeletal: no symptoms reported Skin: no symptoms reported Psychiatric/Neurological: No Symptoms Reported All Other Systems Reviewed Negative Unless Noted: Yes Physical Exam Physical Exam Vital Signs Vital Signs - First Documented 11/05/22 11/05/22 11/05/22 12:16 15:33 15:41 Temp 36.4 Pulse 80 Resp 20 B/P (MAP) 119/57 (77) Pulse Ox 96 O2 Delivery Room Air O2 Flow Rate 0.00 FiO2 21 Capillary Refill : Less Than 3 Seconds Height, Weight, BMI Height: 5'5.00" Weight: 180lbs. 0.0oz. [id number]; 29.00 BMI Method: General Appearance: WD/WN, Anxious, Chronically ill, Mild Distress, Other (fatigued) Eyes: Bilateral Eye Normal Inspection, Bilateral Eye PERRL, Bilateral Eye EOMI HEENT: PERRL/EOMI, Normal ENT Inspection, Pharynx Normal Neck: Full Range of Motion, Normal Inspection, Non Tender, Supple, Carotid Bruit Respiratory: Chest Non Tender, Lungs Clear, Normal Breath Sounds, No Accessory Muscle Use, No Respiratory Distress Cardiovascular: Regular Rate, Rhythm, No Edema, No Gallop, No JVD, No Murmur, Normal Peripheral Pulses Gastrointestinal: Normal Bowel Sounds, No Organomegaly, No Pulsatile Mass, Non Tender, Soft Back: Normal Inspection, No CVA Tenderness, No Vertebral Tenderness Extremity: Normal Capillary Refill, Normal Inspection, Normal Range of Motion, Non Tender, No Calf Tenderness, No Pedal Edema Neurologic/Psychiatric: Alert, Oriented x3, No Motor/Sensory Deficits, Normal Mood/Affect Skin: Normal Color, Warm/Dry Lymphatic: No Adenopathy Results Results/Procedures Labs Laboratory Tests 11/05/22 12:23 Patient resulted labs reviewed. Assessment/Plan Admission Diagnosis Assessment: Lethargy with fever with tick bite suspected tick borne illness Dyspnea Elevated BNP without evidence of volume overload suspected dehydration Recent unstable angina requiring cardiac catheterization with intervention CAD with previous stenting HTN Hyperlipidemia Plan: IVF IV Doxy Monitor closely Admission Status: Observation STANLEY KOLB DO November 05, 2022 13:34
[2022-11-05 13:37] LABS: MAGNESIUM 1.2 MG/DL (1.6-2.4)
[2022-11-05 14:47] LABS: ABSOLUTE RETIC # 59 10e9/uL (24-90); RETICULOCYTE % 1.71 % (0.50-2.40)
[2022-11-05] MEDS ORDERED: diphenhydrAMINE 50 MG/ML INJ (BENADRYL) IVP PRN (15:00)
[2022-11-05] MEDS ORDERED: MELATONIN 3 MG TABLET PO PRN (15:00)
[2022-11-05] MEDS ORDERED: ONDANSETRON 4 MG (ZOFRAN) ORAL DISSOLVE TAB PO PRN (15:00)
[2022-11-05] MEDS ORDERED: MILK OF MAGNESIA 400 MG/5 ML 30 ML UDC PO PRN (15:00)
[2022-11-05] MEDS ORDERED: ANTACID SUSP 30 ML UDC (MYLANTA) PO PRN (15:00)
[2022-11-05] MEDS ORDERED: diphenhydrAMINE 25 MG TAB (BENADRYL) PO PRN (15:00)
[2022-11-05] MEDS ORDERED: BISACODYL 10 MG SUPP (DULCOLAX) PR PRN (15:00)
[2022-11-05] MEDS ORDERED: ONDANSETRON 4 MG/2 ML (SDV) Z0FRAN IV PRN (15:00)
[2022-11-05] MEDS ORDERED: LACTULOSE SYRUP 10GM/15ML (ENULOSE) 30ML UDC PO PRN (15:00)
[2022-11-05] MEDS ORDERED: ACETAMINOPHEN 325 MG TABLET PO PRN (15:00)
[2022-11-05] MEDS ORDERED: polyethylene glycoL POWDER 17 GM (MIRALAX) PACK PO PRN (15:00)
[2022-11-05] MEDS ORDERED: HYDROmorphone 2 MG/ML VIAL (DILAUDID) IV PRN (15:00)
[2022-11-05] MEDS ORDERED: CALCIUM CARBONATE 500 MG (TUMS) TAB.CHEW PO PRN (15:15)
[2022-11-05 15:33] VITALS: BP 119/57
[2022-11-05] MEDS ORDERED: RT-ALBUTEROL SULF 2.5 MG/3 ML PRE-MIX VIAL INH PRN (15:45)
[2022-11-05 16:00] VITALS: BP 124/68
[2022-11-05] MEDS: NS IV 1000 ML 1,000 ML IV SCH (16:05)
[2022-11-05] MEDS: ENOXAPARIN 40 MG/0.4 ML (LOVENOX) SYR SC SCH (16:06)
--- NOTE | 2022-11-05 17:50 | Consultation-Cardiology ---
HPI-Cardiology Cardiology Consultation: Date of Consultation 11/05/22 Date of Admission Attending Physician Jong Banegas Admitting Physician Admitting Physician: Marilynn Carter DO Attending Physician: Marilynn Carter DO Consulting Physician Tatum CHAVEZ MD HPI: Time Seen by a Provider: 17:47 Chief Complaint: Shortness of breath This is a 77-year-old gentleman who has history of non-STEMI [address] Mendez performed coronary angiography and did PCI with a drug-eluting stent. Patient presents with shortness of breath and was found to have a tick bite for 24 hours. He is being admitted for tickborne disease. He denies any smoking history. Family history is unremarkable Review of Systems-Cardiology Review of Systems Constitutional: no symptoms reported Eyes: no symptoms reported Ears/Nose/Throat: no symptoms reported Respiratory: SOB with excertion Cardiovascular: no symptoms reported Gastrointestinal: no symptoms reported Genitourinary: no symptoms reported Musculoskeletal: other (Tick bite) Skin: other (tick bite) Psychiatric/Neurological: no symptoms reported Hematologic: no symptoms reported KXZ-Gpvoqd-Akgoou Hx Patient Social History Smoking Status: Former Smoker Have you traveled recently?: No Alcohol Use?: Yes Pt feels they are or have been: No Past Medical History PMH As described under Assessment. Family Medical History Family Medical History: He does not report fam h/o early CAD Allergies and Home Medications Allergies Coded Allergies: clopidogrel (Verified Allergy, Unknown, 01/02/07) Patient Home Medication List Home Medication List Reviewed: Yes Aspirin (Aspirin EC) 81 Mg Tablet.dr, 81 MG PO BID, (Reported) Entered as Reported by: MIKAYLA SMITH on 06/26/21 1445 Atorvastatin Calcium (Atorvastatin Calcium) 80 Mg Tablet, 80 MG PO HS, (Reported) Entered as Reported by: ARIANNA TOMAS on 02/19/19 0804 Enalapril Maleate (Enalapril Maleate) 10 Mg Tablet, 10 MG PO BID, (Reported) Entered as Reported by: YUMIKO RAY on 08/21/19 1356 Isosorbide Mononitrate (Isosorbide Mononitrate ER) 30 Mg Tab.er.24h, 30 MG PO DAILY, (Reported) Entered as Reported by: MIESHA HERNANDEZ on 06/29/21 1112 Metoprolol Succinate (Metoprolol Succinate) 50 Mg Tab.er.24h, 50 MG PO DAILY, (Reported) Entered as Reported by: ARIANNA TOMAS on 02/19/19 0804 Multivitamin (Multivitamin) 1 Each Tablet, 1 EACH PO DAILY, (Reported) Entered as Reported by: ARIANNA TOMAS on 11/01/22 1041 [place]-3 Fatty Acids ([place]-3) 1,000 Mg Capsule, 1,000 MG PO HS, (Reported) Entered as Reported by: ARIANNA TOMAS on 02/19/19 0804 Omeprazole (Omeprazole) 20 Mg Capsule.dr, 20 MG PO DAILY, (Reported) Entered as Reported by: MIKAYLA SMITH on 06/26/21 1446 Prasugrel HCl (Prasugrel HCl) 10 Mg Tablet, 10 MG PO DAILY, (Reported) Entered as Reported by: MIKAYLA SMITH on 06/26/21 1443 Discontinued Medications Folic Acid (Folic Acid) 0.8 Mg Tablet, 0.8 MG PO BID, (Reported) Discontinued Reason: No Longer Taking Entered as Reported by: MIESHA HERNANDEZ on 06/29/21 1112 Hydrochlorothiazide (Hydrochlorothiazide) 25 Mg Tablet, 25 MG PO DAILY, (Reported) Discontinued Reason: No Longer Taking Entered as Reported by: YUMIKO RAY on 08/21/19 1356 Meloxicam (Meloxicam) 7.5 Mg Tablet, 7.5 MG PO DAILY, (Reported) Entered as Reported by: ARIANNA TOMAS on 11/01/22 1041 Multivit-Min/FA/Lycopen/Lutein (Centravites 50 Plus Tablet) 1 Each Tablet, 1 EACH PO DAILY, (Reported) Discontinued Reason: Prescription changed Entered as Reported by: ARIANNA TOMAS on 02/19/19 0804 Nitroglycerin (Nitroglycerin) 0.4 Mg Tab.subl, 0.4 MG SL UD PRN for CHEST PAIN, (Reported) Discontinued Reason: No Longer Taking Entered as Reported by: ARIANNA TOMAS on 02/19/19 0807 Exam Vital Signs Vital Signs Date Time Temp Pulse Resp B/P (MAP) Pulse Ox O2 Delivery O2 Flow Rate FiO2 11/05/22 16:00 37.0 64 23 124/68 (86) 99 Room Air 11/05/22 15:41 0.00 11/05/22 15:33 21 Physical Exam Constitutional examination: No fatigue or malaise. Not in acute distress. Chest examination: Clear CVS: Normal regular rate. No murmur heard. No peripheral edema noted Labs Laboratory Tests Test 11/05/22 12:23 11/05/22 12:45 Range/Units White Blood Count 14.9 H 4.3-11.0 10^3/uL Red Blood Count 3.77 L 4.30-5.52 10^6/uL Hemoglobin 11.9 L 13.3-17.7 g/dL Hematocrit 34 L 40-54 % Mean Corpuscular Volume 91 80-99 fL Mean Corpuscular Hemoglobin 32 25-34 pg Mean Corpuscular Hemoglobin Concent 35 32-36 g/dL Red Cell Distribution Width 13.2 10.0-14.5 % Platelet Count 168 130-400 10^3/uL Mean Platelet Volume 9.6 9.0-12.2 fL Immature Granulocyte % (Auto) 1 % Neutrophils (%) (Auto) 87 H 42-75 % Lymphocytes (%) (Auto) 4 L 12-44 % Monocytes (%) (Auto) 8 0-12 % Eosinophils (%) (Auto) 0 0-10 % Basophils (%) (Auto) 0 0-10 % Neutrophils # (Auto) 13.0 H 1.8-7.8 10^3/uL Lymphocytes # (Auto) 0.6 L 1.0-4.0 10^3/uL Monocytes # (Auto) 1.2 H 0.0-1.0 10^3/uL Eosinophils # (Auto) 0.0 0.0-0.3 10^3/uL Basophils # (Auto) 0.0 0.0-0.1 10^3/uL Immature Granulocyte # (Auto) 0.1 0.0-0.1 10^3/uL Neutrophils % (Manual) 85 % Lymphocytes % (Manual) 5 % Monocytes % (Manual) 4 % Eosinophils % (Manual) 0 % Basophils % (Manual) 0 % Band Neutrophils 6 % Percent Immature Platelet Fraction 2.7 0.0-7.6 % Blood Morphology Comment NORMAL Absolute Reticulocyte Count 59 24-90 10e9/uL Percent Reticulocyte Count 1.71 0.50-2.40 % Prothrombin Time 13.0 12.2-14.7 SEC INR Comment 1.0 0.8-1.4 Activated Partial Thromboplast Time 28 24-35 SEC Sodium Level 132 L 135-145 MMOL/L Potassium Level 4.3 3.6-5.0 MMOL/L Chloride Level 102 98-107 MMOL/L Carbon Dioxide Level 18 L 21-32 MMOL/L Anion Gap 12 5-14 MMOL/L Blood Urea Nitrogen 23 H 7-18 MG/DL Creatinine 1.73 H 0.60-1.30 MG/DL Estimat Glomerular Filtration Rate 41 BUN/Creatinine Ratio 13 Glucose Level 99 70-105 MG/DL Calcium Level 8.8 8.5-10.1 MG/DL Corrected Calcium 8.8 8.5-10.1 MG/DL Magnesium Level 1.2 L 1.6-2.4 MG/DL Total Bilirubin 0.6 0.1-1.0 MG/DL Aspartate Amino Transf (AST/SGOT) 46 H 5-34 U/L Alanine Aminotransferase (ALT/SGPT) 28 0-55 U/L Alkaline Phosphatase 62 40-136 U/L Troponin I 0.235 H <0.028 NG/ML B-Type Natriuretic Peptide 455.6 H <100.0 PG/ML Total Protein 6.8 6.4-8.2 GM/DL Albumin 4.0 3.2-4.5 GM/DL Radiology Chest x-ray reviewed by myself showed no evidence of congestive heart failure ECG Impression ECG Initial ECG Rhythm: Normal Sinus Comment T wave inversions noted in the anterior leads. Minimal ST depression in V4. Rest of the EKG is normal A/P-Cardiology Assessment/Admission Diagnosis Tickborne illness. Shortness of breath. Recent non-STEMI. Hypertension Hyperlipidemia Plan Tickborne illness. On doxycycline. Defer to Dr. Carter. Serology pending Shortness of breath. Unclear etiology. Chest x-ray normal. BNP is elevated. Elevated from 4 days ago. Repeat echocardiogram. Possibility of mild acute diastolic congestive heart failure. However clinically not in florid congestive heart failure. Recent non-STEMI. Recent LAD stent. Previous history of LAD stent as well, done in [place]. On dual antiplatelet therapy including aspirin and prasugrel. Also on aggressive secondary prevention measures. Troponin trending down. Hypertension-continue current medical therapy. Hyperlipidemia-continue high-dose statin therapy. Tatum CHAVEZ MD November 05, 2022 17:50
[2022-11-05 19:46] VITALS: BP 98/46
[2022-11-05 19:51] VITALS: BP 112/81
[2022-11-05] MEDS: SENNOSIDES 8.6 MG (SENOKOT) TAB PO SCH (21:09)
[2022-11-05] MEDS: DOXYCYCLINE INJECTION 100 MG in NS (IVPB) 100 ML IV SCH (21:09)
[2022-11-05] MEDS: DOCUSATE SODIUM 100 MG (COLACE) CAP PO SCH (21:09)
[2022-11-06] VITALS (8 sets, daily range): BP systolic 106–156; BP diastolic 41–101
[2022-11-06 05:16] LABS: BASOPHILS % (AUTO) 0 % (0-10); EOSINOPHILS % (AUTO) 0 % (0-10); HEMATOCRIT 30 % (40-54); HEMOGLOBIN 10.4 g/dL (13.3-17.7); LYMPHOCYTES # (AUTO) 1.1 10^3/uL (1.0-4.0); LYMPHOCYTES % (AUTO) 12 % (12-44); MEAN CORPUSCULAR HEMOGLOBIN 31 pg (25-34); MEAN CORPUSCULAR HGB CONC 34 g/dL (32-36); MEAN CORPUSCULAR VOLUME 91 fL (80-99); MEAN PLATELET VOLUME 10.2 fL (9.0-12.2); MONOCYTES # (AUTO) 0.7 10^3/uL (0.0-1.0); MONOCYTES % (AUTO) 9 % (0-12); NEUTROPHILS # (AUTO) 6.8 10^3/uL (1.8-7.8); NEUTROPHILS % (AUTO) 79 % (42-75); PLATELET COUNT 135 10^3/uL (130-400); WHITE BLOOD COUNT 8.7 10^3/uL (4.3-11.0)
[2022-11-06 05:31] LABS: ALBUMIN 3.4 GM/DL (3.2-4.5); POTASSIUM 3.7 MMOL/L (3.6-5.0)
[2022-11-06 05:33] LABS: CALCIUM 8.2 MG/DL (8.5-10.1)
[2022-11-06 05:34] LABS: TOTAL PROTEIN 5.8 GM/DL (6.4-8.2)
[2022-11-06 05:36] LABS: BILIRUBIN,TOTAL 0.5 MG/DL (0.1-1.0)
[2022-11-06 05:37] LABS: CREATININE SERUM 1.41 MG/DL (0.60-1.30)
[2022-11-06] MEDS: NS IV 1000 ML 1,000 ML IV SCH (06:08)
[2022-11-06] MEDS: DOXYCYCLINE INJECTION 100 MG in NS (IVPB) 100 ML IV SCH ×2 (08:58→21:02)
[2022-11-06] MEDS: SENNOSIDES 8.6 MG (SENOKOT) TAB PO SCH ×2 (09:07→21:04)
[2022-11-06] MEDS: DOCUSATE SODIUM 100 MG (COLACE) CAP PO SCH ×2 (09:07→21:04)
[2022-11-06] MEDS ORDERED: FOLI20CA PO (10:01)
[2022-11-06] MEDS ORDERED: ADVAIR HFA 115/21 MCG INHALER 8 GM IH SCH (10:15)
[2022-11-06] MEDS ORDERED: MONTELUKAST 10 MG (SINGULAIR) TAB PO ONE (10:15)
[2022-11-06] MEDS ORDERED: RT-ALBUTEROL SULF 2.5 MG/3 ML PRE-MIX VIAL INH SCH (10:15)
--- NOTE | 2022-11-06 10:30 | Progress Note ---
Subjective Date Seen by a Provider: November 06, 2022 Time Seen by a Provider: 10:30 Subjective/Events-last exam Patient doing a little better Moving down to fourth floor Creatinine much improved at 1.4 We will Hep-Lock IV fluid Long-term smoker and heavy use at that so we will treat for acute exacerbation of COPD No evidence of any infection IV steroids and nebulizer treatments and oxygen supplementation required Appreciate cardiology We will ambulate and check for home O2 oxygen Moving to inpatient status due to likelihood of 2 more days before discharge Review of Systems Pulmonary: Dyspnea, Cough Objective Exam Last Set of Vital Signs Vital Signs Date Time Temp Pulse Resp B/P (MAP) Pulse Ox O2 Delivery O2 Flow Rate FiO2 11/06/22 08:15 97 Room Air 11/06/22 07:58 37.1 68 21 106/41 (62) 11/05/22 15:41 0.00 11/05/22 15:33 21 Capillary Refill : Less Than 3 Seconds I&O Intake and Output 11/06/22 00:00 Intake Total 1650 ml Output Total 750 ml Balance 900 ml Intake Oral 450 ml IV Total 1200 ml Output Urine Total 750 ml Daily Weight Change No General: Alert, Oriented X3, Cooperative, No Acute Distress Lungs: Clear to Auscultation, Normal Air Movement, Other (diminished BS) Heart: Regular Rate Neuro: Normal Gait, Normal Speech, Strength at 5/5 X4 Ext, Normal Tone Psych/Mental Status: Mental Status NL, Mood NL Results Lab Laboratory Tests 11/05/22 12:23: White Blood Count 14.9H, Red Blood Count 3.77L, Hemoglobin 11.9L, Hematocrit 34L , Mean Corpuscular Volume 91, Mean Corpuscular Hemoglobin 32, Mean Corpuscular Hemoglobin Concent 35, Red Cell Distribution Width 13.2, Platelet Count 168, Mean Platelet Volume 9.6, Immature Granulocyte % (Auto) 1, Neutrophils (%) (Auto) 87H, Lymphocytes (%) (Auto) 4L, Monocytes (%) (Auto) 8, Eosinophils (%) (Auto) 0, Basophils (%) (Auto) 0, Neutrophils # (Auto) 13.0H, Lymphocytes # (Auto) 0.6L, Monocytes # (Auto) 1.2H, Eosinophils # (Auto) 0.0, Basophils # (Auto) 0.0, Immature Granulocyte # (Auto) 0.1, Neutrophils % (Manual) 85, Lymphocytes % (Manual) 5, Monocytes % (Manual) 4, Eosinophils % (Manual) 0, Basophils % (Manual) 0, Band Neutrophils 6, Percent Immature Platelet Fraction 2.7, Blood Morphology Comment NORMAL, Absolute Reticulocyte Count 59, Percent Reticulocyte Count 1.71, Prothrombin Time 13.0, INR Comment 1.0, Activated Partial Thromboplast Time 28, Sodium Level 132L, Potassium Level 4.3, Chloride Level 102, Carbon Dioxide Level 18L, Anion Gap 12, Blood Urea Nitrogen 23H, Creatinine 1.73H, Estimat Glomerular Filtration Rate 41, BUN/Creatinine Ratio 13, Glucose Level 99, Calcium Level 8.8, Corrected Calcium 8.8, Magnesium Level 1.2L, Total Bilirubin 0.6, Aspartate Amino Transf (AST/SGOT) 46H, Alanine Aminotransferase (ALT/SGPT) 28, Alkaline Phosphatase 62, Troponin I 0.235H, B- Type Natriuretic Peptide 455.6H, Total Protein 6.8, Albumin 4.0 11/05/22 12:45: 11/06/22 04:03: White Blood Count 8.7, Red Blood Count 3.36L, Hemoglobin 10.4L, Hematocrit 30L, Mean Corpuscular Volume 91, Mean Corpuscular Hemoglobin 31, Mean Corpuscular Hemoglobin Concent 34, Red Cell Distribution Width 13.5, Platelet Count 135, Mean Platelet Volume 10.2, Immature Granulocyte % (Auto) 1, Neutrophils (%) (Auto) 79H, Lymphocytes (%) (Auto) 12, Monocytes (%) (Auto) 9, Eosinophils (%) (Auto) 0, Basophils (%) (Auto) 0, Neutrophils # (Auto) 6.8, Lymphocytes # (Auto) 1.1, Monocytes # (Auto) 0.7, Eosinophils # (Auto) 0.0, Basophils # (Auto) 0.0, Immature Granulocyte # (Auto) 0.0, Sodium Level 132L, Potassium Level 3.7, Chloride Level 105, Carbon Dioxide Level 16L, Anion Gap 11, Blood Urea Nitrogen 21H, Creatinine 1.41H, Estimat Glomerular Filtration Rate 52, BUN/Creatinine Ratio 15, Glucose Level 95, Calcium Level 8.2L, Corrected Calcium 8.7, Total Bilirubin 0.5, Aspartate Amino Transf (AST/SGOT) 43H, Alanine Aminotransferase (ALT/SGPT) 24, Alkaline Phosphatase 53, Total Protein 5.8L, Albumin 3.4 Assessment/Plan Assessment/Plan Assess & Plan/Chief Complaint Assessment: Lethargy with fever with tick bite suspected tick borne illness Dyspnea Acute on chronic kidney disease Elevated BNP without evidence of volume overload suspected dehydration Recent unstable angina requiring cardiac catheterization with intervention CAD with previous stenting HTN Hyperlipidemia Plan: HLIVF IV Doxy IV steroids Monitor closely Move to 4th floor Nebs Xopenex due to albuterol neb side effects in the past STANLEY KOLB DO November 06, 2022 10:30
[2022-11-06] MEDS: RT-LEVALBUTEROL (XOPENEX) 1.25 MG/3 ML NEB NON-FORMULARY INH SCH ×3 (11:33→20:09)
[2022-11-06] MEDS: RT--FLUTICASONE/SALMETEROL 113-14 (AIRDUO RespiCLICK) IH SCH ×2 (11:33→20:09)
--- NOTE | 2022-11-06 14:46 | Cardiology Progress Note ---
Cardiology SOAP Progress Note Subjective: Continues to have shortness of breath Objective: I&O/Vital Signs 11/06/22 11/06/22 11/06/22 11/06/22 04:11 07:00 07:58 08:15 Temp 37.1 Pulse 74 63 68 Resp 25 21 B/P (MAP) 136/58 (84) 106/41 (62) Pulse Ox 96 97 O2 Delivery Room Air Room Air Room Air 11/06/22 11/06/22 12:00 13:00 Temp 37.4 Pulse 80 73 Resp 20 B/P (MAP) 148/65 (92) Pulse Ox 100 O2 Delivery Room Air 11/06/22 00:00 Intake Total 1650 ml Output Total 750 ml Balance 900 ml Weight (Pounds): 180 Weight (Ounces): 0.0 Weight (Calculated Kilograms): [id number] Constitutional: AAO x 3 Respiratory: chest is bilaterally symmetric, lungs clear to auscultation; No wheezing Cardiovascular: regular rate-rhythm, S1 and S2 Gastrointestional: soft Extremities: No pedal edema Neurologic/Psychiatric: alert, normal mood/affect, oriented x 3 Skin: normal color Results/Procedures: Labs Laboratory Tests 11/06/22 04:03: White Blood Count 8.7, Red Blood Count 3.36L, Hemoglobin 10.4L, Hematocrit 30L, Mean Corpuscular Volume 91, Mean Corpuscular Hemoglobin 31, Mean Corpuscular Hemoglobin Concent 34, Red Cell Distribution Width 13.5, Platelet Count 135, Mean Platelet Volume 10.2, Immature Granulocyte % (Auto) 1, Neutrophils (%) (Auto) 79H, Lymphocytes (%) (Auto) 12, Monocytes (%) (Auto) 9, Eosinophils (%) (Auto) 0, Basophils (%) (Auto) 0, Neutrophils # (Auto) 6.8, Lymphocytes # (Auto) 1.1, Monocytes # (Auto) 0.7, Eosinophils # (Auto) 0.0, Basophils # (Auto) 0.0, Immature Granulocyte # (Auto) 0.0, Sodium Level 132L, Potassium Level 3.7, Chloride Level 105, Carbon Dioxide Level 16L, Anion Gap 11, Blood Urea Nitrogen 21H, Creatinine 1.41H, Estimat Glomerular Filtration Rate 52, BUN/Creatinine Ratio 15, Glucose Level 95, Calcium Level 8.2L, Corrected Calcium 8.7, Total Bilirubin 0.5, Aspartate Amino Transf (AST/SGOT) 43H, Alanine Aminotransferase (ALT/SGPT) 24, Alkaline Phosphatase 53, Total Protein 5.8L, Albumin 3.4 A/P: Assessment/Dx: Tickborne illness. Shortness of breath. Recent non-STEMI. Hypertension Hyperlipidemia Plan: Tickborne illness. On doxycycline. Defer to Dr. Carter. Serology pending Shortness of breath. Unclear etiology. Chest x-ray normal. BNP is elevated. Elevated from 4 days ago. Echocardiogram showed normal LV function with no valvular heart disease; with moderate LVH. Very likely mild acute diastolic congestive heart failure. However clinically not in florid congestive heart failure. Consider Lasix. Recent non-STEMI. Recent LAD stent. Previous history of LAD stent as well, done in [place]. On dual antiplatelet therapy including aspirin and prasugrel. Also on aggressive secondary prevention measures. Troponin trending down. Hypertension-continue current medical therapy. Hyperlipidemia-continue high-dose statin therapy. Thank you for your consultation. Please call me if you have any questions. Kayla Weller MD, FACP, FACC, FSCAI, FHRS, CCDS Interventional Cardiology Cardiac Electrophysiology Vascular Medicine and Endovascular Interventions Tatum WELLER MD November 06, 2022 14:46
[2022-11-06] MEDS ORDERED: FUROSEMIDE 40 MG/4 ML INJ (LASIX) IVP ONE (15:00)
[2022-11-06] MEDS: ENOXAPARIN 40 MG/0.4 ML (LOVENOX) SYR SC SCH (15:27)
[2022-11-06] MEDS ORDERED: OMEGA 3 (FISH OIL) 1000 MG CAP PO SCH (21:00)
[2022-11-06] MEDS: ENALAPRIL 10 MG (VASOTEC) TAB PO SCH (21:03)
[2022-11-06] MEDS: ASPIRIN E.C. 81 MG (ECOTRIN) TAB PO SCH (21:03)
[2022-11-07 03:45] VITALS: BP 108/59
[2022-11-07 05:37] LABS: BASOPHILS % (AUTO) 0 % (0-10); EOSINOPHILS % (AUTO) 0 % (0-10); HEMATOCRIT 32 % (40-54); HEMOGLOBIN 11.1 g/dL (13.3-17.7); LYMPHOCYTES # (AUTO) 0.8 10^3/uL (1.0-4.0); LYMPHOCYTES % (AUTO) 13 % (12-44); MEAN CORPUSCULAR HEMOGLOBIN 31 pg (25-34); MEAN CORPUSCULAR HGB CONC 35 g/dL (32-36); MEAN CORPUSCULAR VOLUME 90 fL (80-99); MEAN PLATELET VOLUME 9.8 fL (9.0-12.2); MONOCYTES # (AUTO) 0.6 10^3/uL (0.0-1.0); MONOCYTES % (AUTO) 10 % (0-12); NEUTROPHILS # (AUTO) 4.8 10^3/uL (1.8-7.8); NEUTROPHILS % (AUTO) 77 % (42-75); PLATELET COUNT 137 10^3/uL (130-400); WHITE BLOOD COUNT 6.3 10^3/uL (4.3-11.0)
[2022-11-07 06:07] LABS: ALBUMIN 3.7 GM/DL (3.2-4.5); BILIRUBIN,TOTAL 0.5 MG/DL (0.1-1.0); CALCIUM 8.7 MG/DL (8.5-10.1); CREATININE SERUM 1.45 MG/DL (0.60-1.30); POTASSIUM 3.5 MMOL/L (3.6-5.0); TOTAL PROTEIN 6.6 GM/DL (6.4-8.2)
--- NOTE | 2022-11-07 06:08 | Progress Note ---
Subjective Date Seen by a Provider: November 07, 2022 Time Seen by a Provider: 09:00 Objective Exam Last Set of Vital Signs Vital Signs Date Time Temp Pulse Resp B/P (MAP) Pulse Ox O2 Delivery O2 Flow Rate FiO2 11/07/22 03:45 36.1 63 18 108/59 (75) 98 Room Air 0.00 0.00 11/05/22 15:33 21 Capillary Refill : Less Than 3 Seconds I&O Intake and Output 11/06/22 23:59 Intake Total 3020 ml Output Total 3275 ml Balance -255 ml Intake Oral 1920 ml IV Total 1100 ml Output Urine Total 3275 ml # Voids 1 # Bowel Movements 1 Results Lab Laboratory Tests 11/07/22 05:23: White Blood Count 6.3, Red Blood Count 3.56L, Hemoglobin 11.1L, Hematocrit 32L, Mean Corpuscular Volume 90, Mean Corpuscular Hemoglobin 31, Mean Corpuscular Hemoglobin Concent 35, Red Cell Distribution Width 13.2, Platelet Count 137, Mean Platelet Volume 9.8, Immature Granulocyte % (Auto) 0, Neutrophils (%) (Auto) 77H, Lymphocytes (%) (Auto) 13, Monocytes (%) (Auto) 10, Eosinophils (%) (Auto) 0, Basophils (%) (Auto) 0, Neutrophils # (Auto) 4.8, Lymphocytes # (Auto) 0.8L, Monocytes # (Auto) 0.6, Eosinophils # (Auto) 0.0, Basophils # (Auto) 0.0, Immature Granulocyte # (Auto) 0.0 Assessment/Plan Assessment/Plan Assess & Plan/Chief Complaint Assessment: Lethargy with fever with tick bite suspected tick borne illness Dyspnea Acute on chronic kidney disease Elevated BNP without evidence of volume overload suspected dehydration Recent unstable angina requiring cardiac catheterization with intervention CAD with previous stenting HTN Hyperlipidemia Plan: HLIVF IV Doxy IV steroids Monitor closely Move to 4th floor Nebs Xopenex due to albuterol neb side effects in the past STANLEY KOLB DO November 07, 2022 06:08
[2022-11-07] MEDS: RT-LEVALBUTEROL (XOPENEX) 1.25 MG/3 ML NEB NON-FORMULARY INH SCH (06:51)
[2022-11-07] MEDS: RT--FLUTICASONE/SALMETEROL 113-14 (AIRDUO RespiCLICK) IH SCH (06:51)
[2022-11-07] MEDS ORDERED: MULTIVIT W/MINERALS TAB (THERAGRAN M) PO SCH (07:00)
[2022-11-07 07:18] VITALS: BP 131/62
--- NOTE | 2022-11-07 08:43 | Cardiology Progress Note ---
Subjective Date Seen by Provider: November 07, 2022 Time Seen by Provider: 08:38 Subjective/Events-last exam Patient was seen at bedside, sitting comfortably, feeling better. Review of Systems General: No Chills, No Night Sweats, No Fatigue, No Malaise, No Appetite, No Other HEENT: No Head Aches, No Visual Changes, No Eye Pain, No Ear Pain, No Dysphasia, No Sinus Congestion, No Post Nasal Drip, No Sore Throat, No Other Pulmonary: No Dyspnea, No Cough, No Pleuritic Chest Pain, No Other Cardiovascular: No: Chest Pain, Palpitations, Orthopnea, Paroxysmal Noc. Dyspnea, Edema, Lt Headedness, Other Objective-Cardiology Exam Last Set of Vital Signs Vital Signs 11/05/22 11/07/22 11/07/22 15:33 03:45 07:18 Temp 36.4 Pulse 80 Resp 18 B/P (MAP) 131/62 (85) Pulse Ox 98 O2 Delivery Room Air O2 Flow Rate 0.00 0.00 FiO2 21 I&O Intake and Output 11/07/22 00:00 Intake Total 3020 ml Output Total 3275 ml Balance -255 ml Intake Oral 1920 ml IV Total 1100 ml Output Urine Total 3275 ml # Voids 1 # Bowel Movements 1 General: Alert, Oriented X3, Cooperative, No Acute Distress HEENT: Atraumatic Lungs: Clear to Auscultation, Normal Air Movement, Other (diminished BS) Heart: Regular Rate, Normal S1, Normal S2 Extremities: No Clubbing Skin: No Rashes, No Breakdown Neuro: Normal Gait, Normal Speech, Strength at 5/5 X4 Ext, Normal Tone Psych/Mental Status: Mental Status NL, Mood NL Results Lab Laboratory Tests 11/07/22 05:23 A/P-Cardiology Admission Diagnosis Shortness of breath Congestive heart failure Coronary artery disease Fever Assessment/Plan Shortness of breath, fluid overload, pulmonary edema Mildly elevated BNP 2D echo was done in October 2022 with moderate LVH, ejection fraction 55 to 60%. Responded well to diuretics Fever, history of tick bite. Tickborne panel is pending Receiving doxycycline. Non-ST elevation myocardial infarction, recent admission, Troponin is trending down Underwent recently LAD stent placement. Maintained on Effient and aspirin Coronary artery disease -Cardiac catheterization February [address] Kang with balloon angioplasty for in-stent restenosis within the proximal to mid LAD. MultiLink vision 3.023 mm stent. There is successful stenting of the mid LAD following deployment of Promus 3.0 x 12 mm stent. stress test was done in July 2019 showing no ischemia or infarction, ejection fraction 66 percent, echocardiogram showed EF 55-65 percent, aortic valve sclerosis, PA 30 mmHg. Status post myocardial infarction occurred in January 2021, patient was at [facility] after knee surgery, he was transferred to [facility] and Dr. Coronado proceeded with intervention. I do not have the report. Patient had LHC on June 29, 2021 noted to have 95% stenosis in nancy mid LAD within old stent, successful balloon angioplasty with excellent results. 70% ostial left main, was referred to Dr. Coronado. LHC on Jul 22, [address] Coronado with stenting to the left main. Patient was having worsening dyspnea on last visit, underwent repeat LHC with Dr. Coronado on 02/18/22 patient had PTCA to the LAD at [facility] Cardiac catheterization was done on November 01, 2022 with balloon angioplasty for severe in-stent restenosis in the LAD and deployment of a new stent in the LAD with no residual stenosis. The right coronary artery is occluded. The vein graft to the right is occluded, the CHOWDHURY to LAD is patent Continue with aspirin and Effient Hypertension, previously was having hypotension Maintained on enalapril 10 mg daily, hydrochlorothiazide 25 mg daily isosorbide 30 mg daily, Toprol-XL 50 mg daily Continue to monitor blood pressure Hyperlipidemia, monitor lipids Peripheral vascular disease -History of iliac stenting, using 760 SMART stent in the right iliac artery done in 2007, asymptomatic, -Angiogram was done on February 19, 2019 showing the previously placed iliac stents were patent with mild to moderate disease slightly more pronounced on the right, nonobstructive disease with pressure gradient of 20 mmHg, heavily calcified left SFA with moderate disease nonobstructive disease down to the trifurcation, heavily calcified right SFA with moderate disease in the midportion with good flow down to the trifurcation, diffuse atherosclerotic plaques in the abdominal aorta with no dissection or aneurysm noted. ROSALIND was done in October 2020 and they were mildly abnormal bilaterally off 0.71 on the right with TBI 0.55. And on the left side ROSALIND was 0.81 and TBI 0.43. Continue to monitor L4-L5 discectomy and fusion, extensive surgery done in [facility] with Dr. Mahan, still having pain, recovering slowly. Mild bilateral nonobstructive carotid artery stenosis, last ultrasound was done in October 2021, continue to monitor Tobaccoism, has stopped smoking in 2019, encouraged to continue with smoking cessation Status post left knee replacement surgery done in January 2021. Using a walker NESTOR NEFF MD November 07, 2022 08:43
[2022-11-07] MEDS: ENALAPRIL 10 MG (VASOTEC) TAB PO SCH (08:56)
[2022-11-07] MEDS: SENNOSIDES 8.6 MG (SENOKOT) TAB PO SCH (08:57)
[2022-11-07] MEDS: DOCUSATE SODIUM 100 MG (COLACE) CAP PO SCH (08:57)
[2022-11-07] MEDS: ASPIRIN E.C. 81 MG (ECOTRIN) TAB PO SCH (08:57)
[2022-11-07] MEDS ORDERED: ISOSORBIDE MONONITRATE 30 MG (IMDUR) TAB PO SCH (09:00)
[2022-11-07] MEDS ORDERED: MONTELUKAST 10 MG (SINGULAIR) TAB PO SCH (09:00)
[2022-11-07] MEDS ORDERED: PANTOPRAZOLE 20 MG TABLET (PROTONIX) PO SCH (09:00)
[2022-11-07] MEDS ORDERED: PRASUGREL 10 MG (EFFIENT) TABLET PO SCH (09:00)
[2022-11-07] MEDS ORDERED: meTOproloL SUCCINATE 50 MG (TOPROL XL) TAB PO SCH (09:00)
[2022-11-07] MEDS: DOXYCYCLINE INJECTION 100 MG in NS (IVPB) 100 ML IV SCH (09:21)
[2022-11-07] MEDS ORDERED: HYDR25TA4 PO (10:29)
[2022-11-07] MEDS ORDERED: DOXY100T2 PO (10:29)
[2022-11-07] MEDS ORDERED: MONT-40 PO (10:29)
--- NOTE | 2022-11-07 10:29 | Discharge Summary ---
Diagnosis/Chief Complaint Date of Admission November 06, 2022 at 10:30 Date of Discharge Discharge Date: November 07, 2022 Discharge Diagnosis Assessment: Lethargy with fever with tick bite suspected tick borne illness Dyspnea Acute on chronic kidney disease Elevated BNP without evidence of volume overload suspected dehydration Recent unstable angina requiring cardiac catheterization with intervention CAD with previous stenting HTN Hyperlipidemia Plan: HLIVF IV Doxy IV steroids Monitor closely Move to 4th floor Nebs Xopenex due to albuterol neb side effects in the past Discharge Summary Discharge Physical Examination Allergies: Coded Allergies: clopidogrel (Verified Allergy, Unknown, 01/02/07) Vitals & I&Os Vital Signs Date Time Temp Pulse Resp B/P (MAP) Pulse Ox O2 Delivery O2 Flow Rate FiO2 11/07/22 14:27 36.4 71 18 128/53 95 Room Air 0.00 11/05/22 15:33 21 General Appearance: Alert, Oriented X3, Cooperative Respiratory: Clear to Auscultation Cardiovascular: Regular Rate Psych/Mental Status: Mental Status NL Hospital Course Was the Problem List Reviewed?: Yes She hadHospital course: Uneventful hospital course after he was admitted for shortness of breath after recent stent placement. IV steroids nebulizer treatments oxygen supplementation and Singulair were added and Lasix was given with good results. He will remain on Singulair and hydrochlorothiazide 25 mg for diuresis guarded due to suspicion for tickborne illness since there was a tick and is atypical presentation. Labs (last 24 hrs) Laboratory Tests 11/05/22 12:23: White Blood Count 14.9H, Red Blood Count 3.77L, Hemoglobin 11.9L, Hematocrit 34L , Mean Corpuscular Volume 91, Mean Corpuscular Hemoglobin 32, Mean Corpuscular Hemoglobin Concent 35, Red Cell Distribution Width 13.2, Platelet Count 168, Mean Platelet Volume 9.6, Immature Granulocyte % (Auto) 1, Neutrophils (%) (Auto) 87H, Lymphocytes (%) (Auto) 4L, Monocytes (%) (Auto) 8, Eosinophils (%) (Auto) 0, Basophils (%) (Auto) 0, Neutrophils # (Auto) 13.0H, Lymphocytes # (Auto) 0.6L, Monocytes # (Auto) 1.2H, Eosinophils # (Auto) 0.0, Basophils # (Auto) 0.0, Immature Granulocyte # (Auto) 0.1, Neutrophils % (Manual) 85, Lymphocytes % (Manual) 5, Monocytes % (Manual) 4, Eosinophils % (Manual) 0, Basophils % (Manual) 0, Band Neutrophils 6, Percent Immature Platelet Fraction 2.7, Blood Morphology Comment NORMAL, Absolute Reticulocyte Count 59, Percent Reticulocyte Count 1.71, Prothrombin Time 13.0, INR Comment 1.0, Activated Partial Thromboplast Time 28, Sodium Level 132L, Potassium Level 4.3, Chloride Level 102, Carbon Dioxide Level 18L, Anion Gap 12, Blood Urea Nitrogen 23H, Creatinine 1.73H, Estimat Glomerular Filtration Rate 41, BUN/Creatinine Ratio 13, Glucose Level 99, Calcium Level 8.8, Corrected Calcium 8.8, Magnesium Level 1.2L, Total Bilirubin 0.6, Aspartate Amino Transf (AST/SGOT) 46H, Alanine Aminotransferase (ALT/SGPT) 28, Alkaline Phosphatase 62, Troponin I 0.235H, B- Type Natriuretic Peptide 455.6H, Total Protein 6.8, Albumin 4.0 11/05/22 12:45: Ehrlichia chaffeensis IgG Antibody <1:16, Ehrlichia chaffeensis IgM Antibody <1:10, Spotted Fever Group IgG Antibody <1:16, Spotted Fever Group IgM Antibody <1:10 11/06/22 04:03: White Blood Count 8.7, Red Blood Count 3.36L, Hemoglobin 10.4L, Hematocrit 30L, Mean Corpuscular Volume 91, Mean Corpuscular Hemoglobin 31, Mean Corpuscular Hemoglobin Concent 34, Red Cell Distribution Width 13.5, Platelet Count 135, Mean Platelet Volume 10.2, Immature Granulocyte % (Auto) 1, Neutrophils (%) (Auto) 79H, Lymphocytes (%) (Auto) 12, Monocytes (%) (Auto) 9, Eosinophils (%) (Auto) 0, Basophils (%) (Auto) 0, Neutrophils # (Auto) 6.8, Lymphocytes # (Auto) 1.1, Monocytes # (Auto) 0.7, Eosinophils # (Auto) 0.0, Basophils # (Auto) 0.0, Immature Granulocyte # (Auto) 0.0, Sodium Level 132L, Potassium Level 3.7, Chloride Level 105, Carbon Dioxide Level 16L, Anion Gap 11, Blood Urea Nitrogen 21H, Creatinine 1.41H, Estimat Glomerular Filtration Rate 52, BUN/Creatinine Ra fredrick 15, Glucose Level 95, Calcium Level 8.2L, Corrected Calcium 8.7, Total Bilirubin 0.5, Aspartate Amino Transf (AST/SGOT) 43H, Alanine Aminotransferase (ALT/SGPT) 24, Alkaline Phosphatase 53, Total Protein 5.8L, Albumin 3.4 11/07/22 05:23: White Blood Count 6.3, Red Blood Count 3.56L, Hemoglobin 11.1L, Hematocrit 32L, Mean Corpuscular Volume 90, Mean Corpuscular Hemoglobin 31, Mean Corpuscular Hemoglobin Concent 35, Red Cell Distribution Width 13.2, Platelet Count 137, Mean Platelet Volume 9.8, Immature Granulocyte % (Auto) 0, Neutrophils (%) (Auto) 77H, Lymphocytes (%) (Auto) 13, Monocytes (%) (Auto) 10, Eosinophils (%) (Auto) 0, Basophils (%) (Auto) 0, Neutrophils # (Auto) 4.8, Lymphocytes # (Auto) 0.8L, Monocytes # (Auto) 0.6, Eosinophils # (Auto) 0.0, Basophils # (Auto) 0.0, Immature Granulocyte # (Auto) 0.0, Sodium Level 132L, Potassium Level 3.5L, Chloride Level 101, Carbon Dioxide Level 20L, Anion Gap 11, Blood Urea Nitrogen 20H, Creatinine 1.45H, Estimat Glomerular Filtration Rate 50, BUN/Creatinine Ratio 14, Glucose Level 133H, Calcium Level 8.7, Corrected Calcium 8.9, Total Bilirubin 0.5, Aspartate Amino Transf (AST/SGOT) 42H, Alanine Aminotransferase (ALT/SGPT) 26, Alkaline Phosphatase 58, Total Protein 6.6, Albumin 3.7 Pending Labs Laboratory Tests 11/05/22 12:23: White Blood Count 14.9, Red Blood Count 3.77, Hemoglobin 11.9, Hematocrit 34, Mean Corpuscular Volume 91, Mean Corpuscular Hemoglobin 32, Mean Corpuscular Hemoglobin Concent 35, Red Cell Distribution Width 13.2, Platelet Count 168, Mean Platelet Volume 9.6, Immature Granulocyte % (Auto) 1, Neutrophils (%) (Auto) 87, Lymphocytes (%) (Auto) 4, Monocytes (%) (Auto) 8, Eosinophils (%) (Auto) 0, Basophils (%) (Auto) 0, Neutrophils # (Auto) 13.0, Lymphocytes # (Auto) 0.6, Monocytes # (Auto) 1.2, Eosinophils # (Auto) 0.0, Basophils # (Auto) 0.0, Immature Granulocyte # (Auto) 0.1, Neutrophils % (Manual) 85, Lymphocytes % (Manual) 5, Monocytes % (Manual) 4, Eosinophils % (Manual) 0, Basophils % (Manual) 0, Band Neutrophils 6, Percent Immature Platelet Fraction 2.7, Blood Morphology Comment NORMAL, Absolute Reticulocyte Count 59, Percent Reticulocyte Count 1.71, Prothrombin Time 13.0, INR Comment 1.0, Activated Partial Thromboplast Time 28, Sodium Level 132, Potassium Level 4.3, Chloride Level 102, Carbon Dioxide Level 18, Anion Gap 12, Blood Urea Nitrogen 23, Creatinine 1.73, Estimat Glomerular Filtration Rate 41, BUN/Creatinine Ratio 13, Glucose Level 99, Calcium Level 8.8, Corrected Calcium 8.8, Magnesium Level 1.2, Total Bilirubin 0.6, Aspartate Amino Transf (AST/SGOT) 46, Alanine Aminotransferase (ALT/SGPT) 28, Alkaline Phosphatase 62, Troponin I 0.235, B-Type Natriuretic Peptide 455.6, Total Protein 6.8, Albumin 4.0 11/05/22 12:45: Lyme Disease Screen IgG & IgM Ab [Pending], Lyme Antibody Interpretation [Pending], Ehrlichia chaffeensis IgG Antibody <1:16, Ehrlichia chaffeensis IgM Antibody <1:10, Spotted Fever Group IgG Antibody <1:16, Spotted Fever Group IgM Antibody <1:10, [place] Antibody [Pending] 11/06/22 04:03: White Blood Count 8.7, Red Blood Count 3.36, Hemoglobin 10.4, Hematocrit 30, Mean Corpuscular Volume 91, Mean Corpuscular Hemoglobin 31, Mean Corpuscular Hemoglobin Concent 34, Red Cell Distribution Width 13.5, Platelet Count 135, Mean Platelet Volume 10.2, Immature Granulocyte % (Auto) 1, Neutrophils (%) (Auto) 79, Lymphocytes (%) (Auto) 12, Monocytes (%) (Auto) 9, Eosinophils (%) (Auto) 0, Basophils (%) (Auto) 0, Neutrophils # (Auto) 6.8, Lymphocytes # (Auto) 1.1, Monocytes # (Auto) 0.7, Eosinophils # (Auto) 0.0, Basophils # (Auto) 0.0, Immature Granulocyte # (Auto) 0.0, Sodium Level 132, Potassium Level 3.7, Chloride Level 105, Carbon Dioxide Level 16, Anion Gap 11, Blood Urea Nitrogen 21, Creatinine 1.41, Estimat Glomerular Filtration Rate 52, BUN/Creatinine Ratio 15, Glucose Level 95, Calcium Level 8.2, Corrected Calcium 8.7, Total Bilirubin 0.5, Aspartate Amino Transf (AST/SGOT) 43, Alanine Aminotransferase (ALT/SGPT) 24, Alkaline Phosphatase 53, Total Protein 5.8, Albumin 3.4 11/07/22 05:23: White Blood Count 6.3, Red Blood Count 3.56, Hemoglobin 11.1, Hematocrit 32, Mean Corpuscular Volume 90, Mean Corpuscular Hemoglobin 31, Mean Corpuscular Hemoglobin Concent 35, Red Cell Distribution Width 13.2, Platelet Count 137, Mean Platelet Volume 9.8, Immature Granulocyte % (Auto) 0, Neutrophils (%) (Auto) 77, Lymphocytes (%) (Auto) 13, Monocytes (%) (Auto) 10, Eosinophils (%) (Auto) 0, Basophils (%) (Auto) 0, Neutrophils # (Auto) 4.8, Lymphocytes # (Auto) 0.8, Monocytes # (Auto) 0.6, Eosinophils # (Auto) 0.0, Basophils # (Auto) 0.0, Immature Granulocyte # (Auto) 0.0, Sodium Level 132, Potassium Level 3.5, C hloride Level 101, Carbon Dioxide Level 20, Anion Gap 11, Blood Urea Nitrogen 20, Creatinine 1.45, Estimat Glomerular Filtration Rate 50, BUN/Creatinine Ratio 14, Glucose Level 133, Calcium Level 8.7, Corrected Calcium 8.9, Total Bilirubin 0.5, Aspartate Amino Transf (AST/SGOT) 42, Alanine Aminotransferase (ALT/SGPT) 26, Alkaline Phosphatase 58, Total Protein 6.6, Albumin 3.7 Discharge Home Medications: Active Scripts Active Doxycycline Hyclate 100 Mg Tablet 100 Mg PO BID Hydrochlorothiazide 25 Mg Tablet 25 Mg PO DAILY Montelukast Sodium 10 Mg Tablet 10 Mg PO DAILY@0900 Reported Folic Acid 20 Mg Capsule 400 Mg PO BID Multivitamin 1 Each Tablet 1 Each PO DAILY Isosorbide Mononitrate ER (Isosorbide Mononitrate) 30 Mg Tab.er.24h 30 Mg PO DAILY Omeprazole 20 Mg Capsule.dr 20 Mg PO DAILY Aspirin EC (Aspirin) 81 Mg Tablet.dr 81 Mg PO BID Prasugrel HCl 10 Mg Tablet 10 Mg PO DAILY Enalapril Maleate 10 Mg Tablet 10 Mg PO BID [place]-3 ([place]-3 Fatty Acids) 1,000 Mg Capsule 1,000 Mg PO HS Atorvastatin Calcium 80 Mg Tablet 80 Mg PO HS Metoprolol Succinate 50 Mg Tab.er.24h 50 Mg PO DAILY Instructions to patient/family Please see electronic discharge instructions given to patient. STANLEY KOLB DO November 07, 2022 10:29
[2022-11-07 11:30] VITALS: BP 128/53
--- NOTE | 2022-11-07 11:45 | Physical Therapy Evaluation ---
PT Evaluation-General Medical Diagnosis Admission Date November 06, 2022 at 10:30 Medical Diagnosis: dyspena Onset Date: November 06, 2022 Therapy Diagnosis Therapy Diagnosis: debility Height/Weight Height (Feet): 5 Height (Inches): 5.00 Weight (Pounds): 180 Weight (Ounces): 0.0 Precautions Precautions/Isolations: Standard Precautions Referral Physician: Raul Reason for Referral: Evaluation/Treatment Medical History Pertinent Medical History: CAD, COPD, HTN, NH, PVD Current History ER secondary to SOA and feeling tired (tick bite ~1 week ago) Reviewed History: Yes Social History Home: Single Level Current Living Status: Alone Entry Into Home: Stairs With Railing PT Steps Into Home: 5 Prior Prior Level of Function SCALE: Activities may be completed with or without assistive devices. 3-[id number]-[id number] completes the activity by him/herself with no assistance from a helper. 5-Set-up or Clean-up Assistance-helper sets up or cleans up; patient completes activity. [place] assists only prior to or following the activity. 4-Supervision or Touching Assistance-helper provides verbal cues and/or touching/steadying and/or contact guard assistance as patient completes activity. Assistance may be provided throughout the activity or intermittently. 3-Partial/Moderate Assistance-helper does LESS THAN HALF the effort. [place] lifts, holds or supports trunk or limbs, but provides less than half the effort. 2-Substantial/Maximal Assistance-helper does MORE THAN HALF the effort. [place] lifts or holds trunk or limbs and provides more than half the effort. 9-Vexodvimu-qpmrmk does ALL the effort. Patient does none of the effort to complete the activity. Or, the assistance of 2 or more helpers is required for the patient to complete the activity. If activity was not attempted, code reason: 7-Patient Refused. 9-Not Applicable-not attempted and the patient did not perform the activity before the current illness, exacerbation or injury. 10-Not Attempted due to Environmental Limitations-(lack of equipment, weather restraints, etc.). 88-Not Attempted due to Medical Conditions or Safety Concerns. Bed Mobility: 6 Transfers (B,C,W/C): 6 Gait: 6 Stairs: 6 Indoor Mobility (Ambulation): Independent Stairs: Independent Prior Devices Use: Walker PT Evaluation-Current Subjective Patient agrees to PT. Objective Patient Orientation: Normal For Age ROM/Strength ROM Lower Extremities bilateral LE WFL Strength Lower Extremities 4/5 grossly bilateral LE all planes Integumentary/Posture Bowel Incontinence: No Bladder Incontinence: No Posture WFL Neuromuscular (Tone, Coordination, Reflexes) grossly intact Sensory Vision: Wears Glasses Hearing: Functional Transfers Lying to Sitting/Side of Bed(Q: 6 Sit to Stand (QC): 6 Chair/[id number]-Ydfpi Xfer(QC): 6 Gait Mode of Locomotion: Walk Anticipated Mode of Locomotion: Walk Walk 10 feet (QC): 6 Walk 50 ft with 2 Turns(QC): 6 Walk 150 ft (QC): 6 Distance: 300' Gait Assistive Device: FWW Comments/Gait Description safe and functional with no deviation Balance Sitting Static: Normal Sitting Dynamic: Normal Standing Static: Normal Standing Dynamic: Normal Assessment/Needs Patient is currently at independent OF with all gross motor skills and does not require skilled PT intervention at this time. Rehab Potential: Fair PT Plan Treatment/Plan Treatment Plan: Discontinue PT, goals met Treatment Duration: November 07, 2022 Frequency: 1 time per week Estimated Hrs Per Day: .25 hour per day Patient and/or Family Agrees t: Yes Time Time In: 1126 Time Out: 1136 DATE: November 07, 2022 Total Billed Treatment Time: 10 [facility] SHIRAZ VILLA PT November 07, 2022 11:45
[2022-11-07 14:27] VITALS: BP 128/53
[2022-11-07] MEDS ORDERED: DOXYCYCLINE 100 MG (VIBRAMYCIN) TABLET PO SCH (21:00)
== END 2022-11-07 14:34 | disposition home or self-care (01) | DRG 865 ==
LOC: EDUNIT# 12:11 → ER 12:14 → CSD 14:50 → UNDOADMOB 14:50 → CSD 14:55 → ER 14:55 → OBSVTOIN 11-06 10:25 → INTOOBSV 11-06 10:30 → OBSVTOIN 11-06 10:30 → CSD 11-06 14:57 → 4TH 11-06 14:57 → UNDODISIN 11-07 14:34
PROVIDERS: ADMIT Internal Medicine; ATTEND Internal Medicine
DX: A93.8 Other specified arthropod-borne viral fevers (principal); I21.4 Non-ST elevation (NSTEMI) myocardial infarction; I50.33 Acute on chronic diastolic (congestive) heart failure; N17.9 Acute kidney failure, unspecified; I13.0 Hypertensive heart and chronic kidney disease with heart failure and stage 1 through stage 4 chronic kidney disease, or unspecified chronic kidney disease; I25.110 Atherosclerotic heart disease of native coronary artery with unstable angina pectoris; I25.710 Atherosclerosis of autologous vein coronary artery bypass graft(s) with unstable angina pectoris; J44.1 Chronic obstructive pulmonary disease with (acute) exacerbation; N18.30 Chronic kidney disease, stage 3 unspecified; E78.00 Pure hypercholesterolemia, unspecified; I65.23 Occlusion and stenosis of bilateral carotid arteries; I70.203 Unspecified atherosclerosis of native arteries of extremities, bilateral legs; I70.0 Atherosclerosis of aorta; K21.9 Gastro-esophageal reflux disease without esophagitis; I35.8 Other nonrheumatic aortic valve disorders; M19.90 Unspecified osteoarthritis, unspecified site; Z87.891 Personal history of nicotine dependence; Z95.5 Presence of coronary angioplasty implant and graft; Z95.820 Peripheral vascular angioplasty status with implants and grafts; Z98.1 Arthrodesis status; Z96.652 Presence of left artificial knee joint; Z79.82 Long term (current) use of aspirin; Z79.899 Other long term (current) drug therapy; Z88.8 Allergy status to other drugs, medicaments and biological substances
CPT/HCPCS: 36415; 71045; 80053; 83735; 83880; 84484; 85007; 85025; 85027; 85045; 85055; 85610; 85730; 86618; 86666; 86668; 86757; 93041; 93306; 94640; 94760; 94761; G0378